=== PATIENT | male | born 1980 | race African-American/Black ===

== ENCOUNTER 2017-08-27 02:54 | Inpatient (IN) | payer OTHER ==
[~2017-08-27] VITALS: Ht 180.3 cm; Wt 76.8 kg
[2017-08-27] VITALS (10 sets, daily range): BP systolic 111–132; BP diastolic 63–86; PULSE 74–104; RESP 18; Ht 180.3 cm; Wt 76.8 kg
[2017-08-27] MEDS ORDERED: NACL 0.9% 3 ML SYG IV SCH (06:00)
[2017-08-27] MEDS ORDERED: ACETAMINOPHEN 325 MG TAB PO PRN (06:00)
[2017-08-27] MEDS ORDERED: ONDANSETRON 4 MG INJ IV PRN (06:00)
[2017-08-27] MEDS: PANTOPRAZOLE (EC) 40 MG TAB PO SCH (07:20)
[2017-08-27] MEDS: HEPARIN 5,000 UNIT/0.5 ML VIAL SC SCH ×3 (07:22→23:08)
[2017-08-27 07:54] LABS: BASOPHIL # 0.1 10^3/ul (0.0-0.1); BASOPHILS % 0.6 % (0.0-2.0); EOSINOPHILS # 0.2 10^3/ul (0.0-0.5); EOSINOPHILS % 2.1 % (0.0-7.0); HEMATOCRIT 42.5 % (42.0-52.0); HEMOGLOBIN 14.3 g/dl (14.0-18.0); LYMPHOCYTES # 1.8 10^3/ul (0.8-2.9); LYMPHOCYTES % 21.9 % (15.0-51.0); MEAN CORPUSCULAR HEMOGLOBIN 32.5 pg (29.0-33.0); MEAN CORPUSCULAR HGB CONC 33.6 g/dl (32.0-37.0); MEAN CORPUSCULAR VOLUME 96.6 fl (82.0-101.0); MEAN PLATELET VOLUME 11.7 fl (7.4-10.4); MONOCYTES % 12.4 % (0.0-11.0); NEUTROPHILS % 62.8 % (39.0-77.0); PLATELET COUNT 213 10^3/UL (140-415); RED CELL DISTRIBUTION WIDTH 13.2 % (11.5-14.5)
[2017-08-27 08:11] LABS: ALBUMIN 3.4 g/dl (3.3-4.9); ALBUMIN/GLOBULIN RATIO 1.03; BILIRUBIN,INDIRECT 0.7 mg/dl (0-1.1); BILIRUBIN,TOTAL 0.7 mg/dl (0.2-1.3); CALCIUM 8.9 mg/dl (8.4-10.2); CHOL/HDL RATIO 3.2 RATIO; CREATININE 0.8 mg/dl (0.61-1.24); MAGNESIUM 2.1 mg/dl (1.7-2.5); POTASSIUM 3.9 mmol/L (3.5-5.1); TOTAL PROTEIN 6.7 g/dl (6.1-8.1)
[2017-08-27 08:40] LABS: THYROID STIMULATING HORMONE 0.517 MIU/L (0.465-4.680)
--- NOTE | 2017-08-27 10:27 | HP ---
Date/Time of Note Date/Time of Note DATE: 08/27/17 TIME: 10:27 Assessment/Plan VTE Prophylaxis VTE Prophylaxis Intervention: heparin Assessment/Plan Chief Complaint/Hosp Course 1. Ground-level fall with resultant difficulty in walking in a patient with underlying cerebral palsy. Imaging studies have been negative. Will have physical therapy evaluate the patient. Neurology consult pending. Provide as needed analgesics. 2. Frequent falls and urinary incontinence in a patient with cerebral palsy. Management as per #1. 3. Cerebral palsy. Continue supportive care. Plan: The patient will be admitted to inpatient telemetry floor. The patient will be started on a regular diet. The patient will be started on DVT prophylaxis. The patient will remain a full code. Activities will be bedrest. The rest of the patient's management will be based on the clinical course, inputs from consultants, and the results of diagnostic studies. Based on the patient's clinical presentation, he most probably requires at least 2 midnights' stay for further management and evaluation of his clinical presentation. The case and management of this patient was fully discussed with Dr. Coreas Problems: HPI/ROS Admit Date/Time Admit Date/Time Aug 27, 2017 at 04:53 Hx of Present Illness Reason for admission: Transferred from outside facility for further evaluation of fall. Consultants 1. Aubree Gonsales MD, Neurology. This is a 37-year-old male with past medical history of cerebral palsy who apparently had a ground-level fall while he was in the shower. The event happened on 08/26/2017. The patient reported hitting bilateral knees as well as the right forehead during the fall. There was no reported loss of consciousness or seizures. The patient was complaining of right forehead pain as well as bilateral knee pain. The patient also had bilateral bruising in the barr area. The patient was also having urinary incontinence episodes in the past 1 year or so. The patient was taken to the emergency room at [facility]. Over there , the patient underwent evaluation with multiple imaging studies. The brain CT scan was negative for any acute findings. The patient underwent a left knee x- ray that was negative for any acute fractures or dislocation. The patient's right knee x-ray was also negative for any acute fracture or dislocation. The patient was transferred to [facility] for further management because of insurance reasons. ROS Constitutional: no complaints Eyes: pain ENT: no complaints Respiratory: no complaints Cardiovascular: no complaints Gastrointestinal: no complaints Genitourinary: no complaints Musculoskeletal: bone/joint pain (Bilateral knee) Skin: bruising Neurologic: no complaints Endocrine: no complaints Lymphatic: no complaints Psychological: no complaints Immunologic: no complaints PMH/Family/Social Past Medical History Medical History: other (Cerebral palsy) Past Surgical History Past Surgical Hx: no surgical history Social History Lives at home with his family. Alcohol Use: none Smoking Status: Never smoker Drug Use: none Exam/Review of Systems Vital Signs Vitals Vital Signs Date Time Temp Pulse Resp B/P Pulse Ox O2 Delivery O2 Flow Rate FiO2 08/27/17 08:00 90 08/27/17 07:33 98.1 18 132/72 97 Exam Exam General: Adequately build 37 year-old male lying in bed in no apparent distress. HEENT: Normocephalic, atraumatic. Eyes: Anicteric sclerae, conjunctivae clear. Bruising in the right periorbital area. ENT: Nasal septum midline, oral mucosa moist. Neck supple, no JVD noticed. Respiratory: Bilaterally clear breath sounds. No use of accessory muscles of respiration. No adventitious breath sounds. Cardiovascular: S1, S2 heard. No murmurs or gallops. Abdomen: Soft, nontender, and nondistended. Bowel sounds positive in all 4 quadrants. Genitourinary: Deferred. Extremities: No cyanosis, no clubbing, no edema. Peripheral pulses palpable. Area of erythema in the left barr with tenderness to touch. Area of erythema in the right barr with tenderness to touch. Neurologic: The patient is awake and alert. Dysarthria. Skin: Normal skin turgor. Labs Result Diagram: 08/27/1770308/27/17703 Medications Medications Current Medications Ondansetron HCl (Zofran Inj) 4 mg Q6H PRN IV NAUSEA AND/OR VOMITING; Start 08/27/17 at 06:00 Acetaminophen (Tylenol Tab) 650 mg Q6H PRN PO PAIN LEVEL 1-3 OR FEVER; Start 08/27/17 at 06:00 Pantoprazole (Protonix Tab) 40 mg DAILY@06 PO Last administered on 08/27/17t 07 :20; Admin Dose 40 MG; Start 08/27/17 at 06:00 Heparin Sodium (Porcine) (Heparin (5000 Units/0.5 ml)) 5,000 unit Q8 SC Last administered on 08/27/17t 07:22; Admin Dose 5,000 UNIT; Start 08/27/17 at 06:[address] Scan of the Brain without Contrast. No evidence of any acute intracranial process. Apparent hypoplasia of the right mastoid air cells. X-Ray of the Right Knee. No acute fracture or dislocation. Contour irregularity suggesting healed fractures of the proximal tibial and fibular diaphysis. X-Ray of the Left Knee No acute fracture or dislocation. Questionable old healed fracture of the proximal tibial metaphysis. HEIDI RASHEED NP Aug 27, 2017 10:27
--- NOTE | 2017-08-27 15:41 | CONS ---
Date/Time of Note Date/Time of Note DATE: 08/27/17 TIME: 15:37 Assessment/Plan Assessment/Plan Chief Complaint/Hosp Course 37 year old male with history of Cerebral Palsy admitted with increasing frequency of falls, ataxia and urinary incontinence over 1 year. Recommend: MRI Brain with and without contrast, MRI Cervical and Thoracic Spine w contrast to r/o possibility of cord pathology, compressive lesion PT/OT eval will follow w further recommendations after imaging completed d/w family at bedside Problems: Consultation Date/Type/Reason Admit Date/Time Aug 27, 2017 at 04:53 Date of Consultation: Aug 27, 2017 Type of Consultation: Neurology Reason for Consultation evaluation for LE weakness urinary incontinence Referring Provider: HEIDI RASHEED NP Hx of Present Illness 37 year old male with history of Cerebral Palsy not currently on any medications brought in by family for increased frequency of falls and urinary incontinence over the past year. Per sisters at bedside he had fallen in the shower prompting this admission hit his forehead and bilateral knees, they have noted trouble with his walking and increasing ataxia over the past year. He was seen at [facility] r/o for acute fractures and tx for further care. No known hx of seizures, he is not currently receiving any outpatient services or therapies. falls, pain in LE Eyes: pain ENT: no complaints Respiratory: no complaints Cardiovascular: no complaints Gastrointestinal: no complaints Genitourinary: no complaints Musculoskeletal: bone/joint pain (Bilateral knee) Skin: bruising Neurologic: no complaints Lymphatic: no complaints Psychological: no complaints Immunologic: no complaints Past Medical History Medical History: other (Cerebral palsy) Past Surgical History Past Surgical Hx: no surgical history Social History Alcohol Use: none Smoking Status: Never smoker Drug Use: none Exam/Review of Systems Vital Signs Vitals Vital Signs Date Time Temp Pulse Resp B/P Pulse Ox O2 Delivery O2 Flow Rate FiO2 08/27/17 14:48 97.8 87 18 111/68 97 Exam awake and alert oriented to name minimally verbal states his name CN: II-XII intact Motor: Bilateral UE 5/5 mild weakness RLE 5-/5 compared to Left 5/5 Reflexes 3+ throughout toes withdraw bilaterally Tone is wnl Coordination: poor cooperation with FTN Sensory is intact throughout Results Result Diagram: 08/27/17 0704 08/27/17 0704 Results 24 hrs Laboratory Tests Test 08/27/17 07:04 White Blood Count 8.0 Red Blood Count 4.40 L Hemoglobin 14.3 Hematocrit 42.5 Mean Corpuscular Volume 96.6 Mean Corpuscular Hemoglobin 32.5 Mean Corpuscular Hemoglobin Concent 33.6 Red Cell Distribution Width 13.2 Platelet Count 213 Mean Platelet Volume 11.7 H Neutrophils % 62.8 Lymphocytes % 21.9 Monocytes % 12.4 H Eosinophils % 2.1 Basophils % 0.6 Nucleated Red Blood Cells % 0.0 Neutrophils # 5.0 Lymphocytes # 1.8 Monocytes # 1.0 H Eosinophils # 0.2 Basophils # 0.1 Nucleated Red Blood Cells # 0.0 Sodium Level 142 Potassium Level 3.9 Chloride Level 111 H Carbon Dioxide Level 28 Anion Gap 7 L Blood Urea Nitrogen 17 Creatinine 0.80 Glucose Level 86 Hemoglobin A1c 5.1 Calcium Level 8.9 Magnesium Level 2.1 Total Bilirubin 0.7 Direct Bilirubin 0.00 Indirect Bilirubin 0.7 Aspartate Amino Transf (AST/SGOT) 46 Alanine Aminotransferase (ALT/SGPT) 56 Alkaline Phosphatase 58 Total Protein 6.7 Albumin 3.4 Globulin 3.30 H Albumin/Globulin Ratio 1.03 Triglycerides Level 38 Cholesterol Level 98 L LDL Cholesterol, Calculated 60 HDL Cholesterol 30 Cholesterol/HDL Ratio 3.2 Thyroid Stimulating Hormone (TSH) 0.517 Medications Medications Current Medications Ondansetron HCl (Zofran Inj) 4 mg Q6H PRN IV NAUSEA AND/OR VOMITING; Start 08/27/17 at 06:00 Acetaminophen (Tylenol Tab) 650 mg Q6H PRN PO PAIN LEVEL 1-3 OR FEVER; Start 08/27/17 at 06:00 Pantoprazole (Protonix Tab) 40 mg DAILY@06 PO Last administered on 08/27/17 07 :20; Admin Dose 40 MG; Start 08/27/17 at 06:00 Heparin Sodium (Porcine) (Heparin (5000 Units/0.5 ml)) 5,000 unit Q8 SC Last administered on 08/27/17 14:00; Admin Dose 5,000 UNIT; Start 08/27/17 at 06:00 CARRI SCHMIDT MD Aug 27, 2017 15:41
[2017-08-28] VITALS (9 sets, daily range): BP systolic 119–134; BP diastolic 63–79; PULSE 82–96; RESP 18–19
[2017-08-28 05:24] LABS: BASOPHILS % 0.8 % (0.0-2.0); EOSINOPHILS # 0.2 10^3/ul (0.0-0.5); EOSINOPHILS % 4.6 % (0.0-7.0); HEMATOCRIT 41.4 % (42.0-52.0); HEMOGLOBIN 13.4 g/dl (14.0-18.0); LYMPHOCYTES # 1.5 10^3/ul (0.8-2.9); LYMPHOCYTES % 28.9 % (15.0-51.0); MEAN CORPUSCULAR HEMOGLOBIN 31.1 pg (29.0-33.0); MEAN CORPUSCULAR HGB CONC 32.4 g/dl (32.0-37.0); MEAN CORPUSCULAR VOLUME 96.1 fl (82.0-101.0); MEAN PLATELET VOLUME 11.6 fl (7.4-10.4); MONOCYTE # 0.5 10^3/ul (0.3-0.9); MONOCYTES % 10.7 % (0.0-11.0); NEUTROPHIL # 2.8 10^3/ul (1.6-7.5); NEUTROPHILS % 54.8 % (39.0-77.0); PLATELET COUNT 202 10^3/UL (140-415); RED BLOOD COUNT 4.31 10^6/ul (4.70-6.10); RED CELL DISTRIBUTION WIDTH 13.4 % (11.5-14.5); WHITE BLOOD COUNT 5.1 10^3/ul (4.8-10.8)
[2017-08-28 05:55] LABS: PHOSPHORUS 3.1 mg/dl (2.5-4.9)
[2017-08-28 05:58] LABS: CALCIUM 8.6 mg/dl (8.4-10.2); CREATININE 0.81 mg/dl (0.61-1.24); POTASSIUM 3.8 mmol/L (3.5-5.1)
[2017-08-28] MEDS: PANTOPRAZOLE (EC) 40 MG TAB PO SCH (06:42)
[2017-08-28] MEDS: HEPARIN 5,000 UNIT/0.5 ML VIAL SC SCH ×3 (06:56→21:10)
[2017-08-28] MEDS: HYDROCODONE/APAP (5/325) TAB PO PRN ×3 (10:36→21:06)
--- NOTE | 2017-08-28 14:03 | PN ---
Date/Time of Note Date/Time of Note DATE: 08/28/17 TIME: 14:02 Assessment/Plan VTE Prophylaxis VTE Prophylaxis Intervention: heparin Lines/Catheters IV [facility] [place] Urinary Cath still in place: No Assessment/Plan Chief Complaint/Hosp Course 1. Ground-level fall with resultant difficulty in walking in a patient with underlying cerebral palsy. Imaging studies from the referring facility has been negative. Pending MRI. Pending PT and OT evaluation. Neurology following. 2. Frequent falls and urinary incontinence in a patient with cerebral palsy. Management as per #1. 3. Cerebral palsy. Continue supportive care. 4. Fluids, electrolytes, and nutrition. Regular diet. 5. DVT prophylaxis. SQ heparin. 6. Plan. Continue supportive care. Await further imaging studies as well as PT and OT evaluation. Transfer to Med/Surg. Case discussed with Dr. Coreas. Problems: Subjective 24 Hr Interval Summary Free Text/Dictation Denies any pain. Exam/Review of Systems Vital Signs Vitals Vital Signs Date Time Temp Pulse Resp B/P Pulse Ox O2 Delivery O2 Flow Rate FiO2 08/28/17 12:17 93 08/28/17 11:28 97.9 18 119/69 100 Intake and Output 08/27/17 08/27/17 08/28/17 15:00 23:00 07:00 Intake Total 440 ml Balance 440 ml Exam General: Adequately build 37 year-old male lying in bed in no apparent distress. HEENT: Normocephalic, atraumatic. Eyes: Anicteric sclerae, conjunctivae clear. Bruising in the right periorbital area. ENT: Nasal septum midline, oral mucosa moist. Neck supple, no JVD noticed. Respiratory: Bilaterally clear breath sounds. No use of accessory muscles of respiration. No adventitious breath sounds. Cardiovascular: S1, S2 heard. No murmurs or gallops. Abdomen: Soft, nontender, and nondistended. Bowel sounds positive in all 4 quadrants. Genitourinary: Deferred. Extremities: No cyanosis, no clubbing, no edema. Peripheral pulses palpable. Area of erythema in the left barr with tenderness to touch. Area of erythema in the right barr with tenderness to touch. Neurologic: The patient is awake and alert. Dysarthria. Skin: Normal skin turgor. Results Result Diagram: 08/28/17 0452 08/28/17 045 Results 24 hrs Laboratory Tests Test 08/28/17 04:52 08/28/17 04:53 White Blood Count 5.1 # Red Blood Count 4.31 L Hemoglobin 13.4 L Hematocrit 41.4 L Mean Corpuscular Volume 96.1 Mean Corpuscular Hemoglobin 31.1 Mean Corpuscular Hemoglobin Concent 32.4 Red Cell Distribution Width 13.4 Platelet Count 202 Mean Platelet Volume 11.6 H Neutrophils % 54.8 Lymphocytes % 28.9 Monocytes % 10.7 Eosinophils % 4.6 Basophils % 0.8 Nucleated Red Blood Cells % 0.0 Neutrophils # 2.8 Lymphocytes # 1.5 Monocytes # 0.5 Eosinophils # 0.2 Basophils # 0.0 Nucleated Red Blood Cells # 0.0 Sodium Level 143 Potassium Level 3.8 Chloride Level 109 Carbon Dioxide Level 28 Anion Gap 10 Blood Urea Nitrogen 12 Creatinine 0.81 Glucose Level 128 # Calcium Level 8.6 Phosphorus Level 3.1 Magnesium Level 2.0 Medications Medications Current Medications Ondansetron HCl (Zofran Inj) 4 mg Q6H PRN IV NAUSEA AND/OR VOMITING; Start 08/27/17 at 06:00 Acetaminophen (Tylenol Tab) 650 mg Q6H PRN PO PAIN LEVEL 1-3 OR FEVER Last administered on 08/27/17 21:04; Admin Dose 650 MG; Start 08/27/17 at 06:00 Pantoprazole (Protonix Tab) 40 mg DAILY@06 PO Last administered on 08/28/17 06 :42; Admin Dose 40 MG; Start 08/27/17 at 06:00 Heparin Sodium (Porcine) (Heparin (5000 Units/0.5 ml)) 5,000 unit Q8 SC Last administered on 08/28/17 06:56; Admin Dose 5,000 UNIT; Start 08/27/17 at 06:00 Acetaminophen/ Hydrocodone Bitart ([place] (5/325)) 1 tab Q4H PRN PO Pain Last administered on 08/28/17 10:36; Admin Dose 1 TAB; Start 08/28/17 at 10:30 HEIDI RASHEED NP Aug 28, 2017 14:03
--- NOTE | 2017-08-28 18:07 | CONS ---
Date/Time of Note Date/Time of Note DATE: 08/28/17 TIME: 18:06 Consult Date/Type/Reason Admit Date/Time Aug 27, 2017 at 04:53 Initial Consult Date 08/27/17 Type of Consultation: Neurology Reason for Consultation LE weakness, falls ataxia Ordering Provider: HEIDI RASHEED [employer] Subjective remains stable pending imaging Objective Vital Signs Date Time Temp Pulse Resp B/P Pulse Ox O2 Delivery O2 Flow Rate FiO2 08/28/17 15:43 97.6 93 18 134/63 93 Room Air Intake and Output 08/27/17 08/27/17 08/28/17 15:00 23:00 07:00 Intake Total 440 ml Balance 440 ml Exam awake and alert oriented to name minimally verbal states his name CN: II-XII intact Motor: Bilateral UE 5/5 mild weakness RLE 5-/5 compared to Left 5/5 Reflexes 3+ throughout toes withdraw bilaterally Tone is wnl Coordination: poor cooperation with FTN Sensory is intact throughout Results/Medications Result Diagram: 08/28/17 0452 08/28/17 0453 Results 24 hrs Laboratory Tests Test 08/28/17 04:52 08/28/17 04:53 White Blood Count 5.1 # Red Blood Count 4.31 L Hemoglobin 13.4 L Hematocrit 41.4 L Mean Corpuscular Volume 96.1 Mean Corpuscular Hemoglobin 31.1 Mean Corpuscular Hemoglobin Concent 32.4 Red Cell Distribution Width 13.4 Platelet Count 202 Mean Platelet Volume 11.6 H Neutrophils % 54.8 Lymphocytes % 28.9 Monocytes % 10.7 Eosinophils % 4.6 Basophils % 0.8 Nucleated Red Blood Cells % 0.0 Neutrophils # 2.8 Lymphocytes # 1.5 Monocytes # 0.5 Eosinophils # 0.2 Basophils # 0.0 Nucleated Red Blood Cells # 0.0 Sodium Level 143 Potassium Level 3.8 Chloride Level 109 Carbon Dioxide Level 28 Anion Gap 10 Blood Urea Nitrogen 12 Creatinine 0.81 Glucose Level 128 # Calcium Level 8.6 Phosphorus Level 3.1 Magnesium Level 2.0 Medications Current Medications Ondansetron HCl (Zofran Inj) 4 mg Q6H PRN IV NAUSEA AND/OR VOMITING; Start 08/27/17 at 06:00 Acetaminophen (Tylenol Tab) 650 mg Q6H PRN PO PAIN LEVEL 1-3 OR FEVER Last administered on 08/27/17t 21:04; Admin Dose 650 MG; Start 08/27/17 at 06:00 Pantoprazole (Protonix Tab) 40 mg DAILY@06 PO Last administered on 08/28/17 06 :42; Admin Dose 40 MG; Start 08/27/17 at 06:00 Heparin Sodium (Porcine) (Heparin (5000 Units/0.5 ml)) 5,000 unit Q8 SC Last administered on 08/28/17 14:16; Admin Dose 5,000 UNIT; Start 08/27/17 at 06:00 Acetaminophen/ Hydrocodone Bitart ([place] (5/325)) 1 tab Q4H PRN PO Pain Last administered on 08/28/17 15:47; Admin Dose 1 TAB; Start 08/28/17 at 10:30 Assessment/Plan Chief Complaint/Hosp Course 37 year old male with history of Cerebral Palsy admitted with increasing frequency of falls, ataxia and urinary incontinence over 1 year. Recommend: MRI Brain with and without contrast, MRI Cervical and Thoracic Spine w contrast to r/o possibility of cord pathology, compressive lesion PT recommended Acute Rehab imaging pending Problems: CARRI SCHMIDT MD Aug 28, 2017 18:07
--- NOTE | 2017-08-28 22:53 | RADRPT ---
PROCEDURE: MR Brain with and without contrast. CLINICAL INDICATION: Ataxia TECHNIQUE: Multiplanar multisequence MRI of the brain was performed before and after the administrat ion of 10 cc Magnevist. COMPARISON: There are no similar studies submitted for comparison. FINDINGS: There is no restricted diffusion to suggest acute ischemia/infarct. There is no evidence of acute in tracranial hemorrhage, midline shift, or mass effect. No extra-axial collection is seen. There is mi ld diffuse cerebral volume loss. Mildly prominent perivascular spaces in the basal ganglia regions a re noted. Signal intensity of the brain is within normal limits. There is a partially empty sella tu rcica, nonspecific. The parasellar and suprasellar regions are grossly unremarkable. GRE images show no evidence of hemosiderin staining. Postcontrast images show no evidence of abnormal parenchymal, ependymal, leptomeningeal, or pachymeningeal enhancement. On postcontrast images, there is apparent filling defect within the right sigmoid sinus, suggesting right sigmoid sinus thrombosis (series 5, image 21; series 4, image 19). A prominent arachnoid granulations considered less likely. There is e nhancement within the mastoid air cells anteriorly , suggesting right mastoiditis (series 5, image 19; series 4, image 18). The basal cisterns are preserved. The orbits are grossly unremarkable. Ther e is mild mucosal thickening in the bilateral ethmoid sinuses and right sphenoid sinus. No air-fluid levels are seen. There is a under pneumatization of the posterior right mastoid air cells. The visu alized left mastoid air cells are clear. IMPRESSION: 1. No evidence of acute ischemia/infarct, intracranial hemorrhage, midline shift, or hydrocephalous. 2. Enhancing right anterior mastoid air cells, concerning for mastoiditis. Apparent filling defect w ithin the right sigmoid sinus, suspicious for thrombus, possibly secondary to adjacent mastoiditis. A prominent arachnoid granulation is considered less likely. Recommend CT temporal bone and CTV for further evaluation. RPTAT: HR[facility] Physician Jared Date Time Electronically viewed and signed by Physician Jared on 08/28/2017 22:53 RC/
[2017-08-29 03:00] VITALS: BP 109/71; RESP 18
[2017-08-29] MEDS: HEPARIN 5,000 UNIT/0.5 ML VIAL SC SCH ×3 (05:43→21:25)
[2017-08-29] MEDS: PANTOPRAZOLE (EC) 40 MG TAB PO SCH (05:43)
[2017-08-29] MEDS: HYDROCODONE/APAP (5/325) TAB PO PRN ×3 (05:49→21:25)
[2017-08-29 07:41] VITALS: BP 128/77; RESP 20
--- NOTE | 2017-08-29 08:49 | RADRPT ---
PROCEDURE: MRA Brain. CLINICAL INDICATION: Ataxia TECHNIQUE: An MRA of the brain was performed on a GE short bore high-definition 1.5 luc scanner 3-D [id number] MR angiography technique. Source and MIP images were reviewed. COMPARISON: None FINDINGS: The internal carotid arteries are patent and normal in caliber. The middle cerebral and the anterio r cerebral arteries are also patent and normal in caliber with no significant luminal irregularity o r narrowing identified. The vertebral arteries, basilar artery, and superior cerebellar arteries ar e visualized and normal in appearance. There is codominant vertebral basilar arterial system. The posterior cerebral arteries are patent and normal in appearance bilaterally. No aneurysms are dete cted. IMPRESSION: 1. Tortuous intracranial arteries with no significant stenosis or occlusion. 2. No cerebral aneurysms or vascular malformations. RPTAT: BB .Rita Edward MD, Date Time Electronically viewed and signed by .Rita Edward MD, MD on 08/29/2017 08:48 .O/
--- NOTE | 2017-08-29 08:56 | RADRPT ---
PROCEDURE: MRA Neck without contrast. CLINICAL INDICATION: Ataxia. TECHNIQUE: An MRA of the major cervical arteries was performed on the 1.5 luc scanner utilizing axial 2D time of flight. No IV contrast was given as ordered. Source and MIPPED images were reviewe d. COMPARISON: No prior studies are available for comparison. FINDINGS: The common carotid arteries are patent and normal in caliber. There is significant tortuosity of the extracranial carotid arteries. The vertebral arteries are patent and normal in caliber bilaterally. There is no evidence of vascular stenosis or occlusion. IMPRESSION: 1. Limited assessment of the bilateral carotid bulbs/proximal ICA due to motion artifacts and tortu osity of the vessels. Otherwise, major neck vessels are patent with no significant stenosis. Conside r CTA neck for further evaluation. RPTAT: BB .Rita Edward MD, MD Date Time Electronically viewed and signed by .Rita Edward MD, on 08/29/2017 08:55 .O/
--- NOTE | 2017-08-29 09:11 | RADRPT ---
PROCEDURE: MR Cervical Spine with and without contrast. CLINICAL INDICATION: Lower extremity weakness and urinary incontinence. TECHNIQUE: An MRI of the cervical spine was performed on a [employer]apptain 1.5 luc scanner utilizing the foll owing sequences: Pre and postcontrast sagittal and axial T1 weighted, sagittal and axial T2 weighted , and sagittal T2 weighted with fat saturation. 10 cc of Magnevist were given intravenously without complication. COMPARISON: None FINDINGS: There is reversal of the cervical lordosis with focal kyphosis at C4-C5. The marrow signal throughou t the visualized cervical spine is homogeneous without focal abnormality. The craniocervical and cer vical medullary junctions are unremarkable. The cervical cord is normal in caliber and signal intens ity. There is abnormal bone marrow signal of the left facet at C3-C4 with surrounding mild soft tiss ue swelling/edema. There is increased left facet joint effusion. Small erosion involving the left in ferior articular facet of C3. There is small amount of phlegmon extending into the left neural yamini en at at C3-C4. There is minimal epidural contrast enhancement without definite of fluid collection at this level. The central canal remains adequately patent. Disc bulge, bilateral uncovertebral spur ring and facet arthropathy are seen at C4-C5. Sub centimeter cystic structures are seen in the infer ior aspect of the facet joints at C5-C6 which could represent synovial cyst. There is mild to moderate central canal and at least moderate bilateral neural foraminal stenosis. There is left fora alhaji disc protrusion at C6-C7 with associated mild to moderate left neural foraminal stenosis. Ther e is mild to moderate asymmetric central canal stenosis. IMPRESSION: The study is somewhat limited due to motion artifacts. 1. Abnormal bone marrow signal with surrounding soft tissue edema involving the left C3-C4 facet fahad nt. Increased joint effusion and small focus of probable erosion involving the left inferior articul ar facet of C3. The findings are concerning for septic/inflammatory arthritis. Small amount of enhan cing soft tissue likely a phlegmon around the left facet joint extending into the left neural forame n. No definite epidural fluid collection is identified. 2. Mild to moderate asymmetric central canal stenosis at C6-C7 with left-sided neural foraminal estefanía nosis. 3. Mild central canal stenosis and moderate bilateral neural foraminal stenosis at C4-C5. RPTAT: BB .Rita Edward MD, MD Date Time Electronically viewed and signed by .Rita Edward MD, MD on 08/29/2017 09:11 .O/
--- NOTE | 2017-08-29 09:51 | RADRPT ---
PROCEDURE: MRI thoracic spine with and without IV contrast CLINICAL INDICATION: Weakness. Urinary incontinence. TECHNIQUE: An MRI of the thoracic spine was performed on a AwesomePiece 1.5 luc scanner utilizing the foll owing sequences: Pre and postcontrast sagittal and axial T1 weighted, sagittal and axial T2 weighted , and sagittal STIR. 10 cc of Magnevist was administered intravenously. COMPARISON: None FINDINGS: There is a normal kyphosis of the thoracic spine. No vertebral body subluxation is seen. The verte bral bodies are normal in height and signal intensity. The thoracic cord is normal in signal intens ity in caliber at all levels. The paraspinal soft tissues are normal. T1-T2 through T4-T5: The disc height is maintained. There is mild left facet arthropathy. The centr al canal and bilateral neural foramina are adequately patent. T5-T6: The disc height is maintained. There is 3 mm broad-based central left paracentral disc protr usion abutting the ventral aspect of the cord with mild to moderate central canal stenosis.. There i s left facet arthropathy resulting in mild to moderate left neural foraminal stenosis. The right preston ral foramen is adequately patent. T6-T7: The disc height is maintained. There is left facet arthropathy. There is mild distortion of t he left posterolateral thecal sac without significant canal stenosis. Bilateral neural foramina are adequately patent. T7-T8: The disc height is maintained. Mild posterior disc bulge, mild to moderate facet arthropathy and ligamentum flavum thickening are seen at this level. There is mild central canal stenosis. T8-T9: There is moderate disc height loss with mild disc desiccation. Disc bulge, moderate facet ar thropathy and ligamentum flavum thickening are seen at this level. There is mild central canal and b ilateral neural foraminal stenosis. T9-T10: The disc height is maintained. Disc osteophyte complex, severe facet arthropathy and ligame ntum flavum thickening are seen at this level. There is moderately severe central canal stenosis wit h flattening of the cord. There is abnormal cord signal at this level. There is moderate to severe b ilateral neural foraminal stenosis right greater than left. T10-T11: The disc height is maintained. There is disc bulge, severe facet arthropathy and ligamentu m flavum thickening are seen at this level. There is severe central canal stenosis. There is abnorma l cord signal with mild volume loss. There is moderate to severe bilateral neural foraminal stenosis right greater than left. T11-T12: The disc height is maintained. There is disc bulge, moderate facet arthropathy and ligamen clayton flavum thickening are seen at this level. There is mild central canal stenosis. There is severe right and moderate left neural foraminal stenosis. IMPRESSION: 1. Severe acquired central canal stenosis at T9-T10 and T10-T11 with abnormal cord signal and mild volume loss suggesting myelomalacia. 2. Moderate to severe bilateral neural foraminal stenosis right greater than left at T8-T9 through T11-T12. 3. Mild discogenic disease at T5-T6. The remainder as above. RPTAT: BB .Rita Edward MD, Date Time Electronically viewed and signed by .Rita Edward MD, on 08/29/2017 09:51 .O/
--- NOTE | 2017-08-29 12:48 | CONS ---
Date/Time of Note Date/Time of Note DATE: 08/29/17 TIME: 12:44 Consult Date/Type/Reason Admit Date/Time Aug 27, 2017 at 04:53 Initial Consult Date 08/27/17 Type of Consultation: Neurology Reason for Consultation LE weakness Ordering Provider: HEIDI RASHEED [facility] Subjective remains stable no further decline imaging completed Objective Vital Signs Date Time Temp Pulse Resp B/P Pulse Ox O2 Delivery O2 Flow Rate FiO2 08/29/17 07:41 98.3 90 20 128/77 98 08/28/17 15:43 Room Air Intake and Output 08/28/17 08/28/17 08/29/17 15:00 23:00 07:00 Intake Total 200 ml 720 ml Output Total 150 ml 500 ml Balance 50 ml 220 ml Exam awake and alert oriented to name minimally verbal states his name CN: II-XII intact Motor: Bilateral UE 5/5 mild weakness RLE 5-/5 compared to Left 5/5 Reflexes 3+ throughout toes withdraw bilaterally Tone is wnl Coordination: poor cooperation with FTN Sensory is intact throughout Results/Medications Result Diagram: 08/28/17 0452 08/28/17 0453 Medications Current Medications Ondansetron HCl (Zofran Inj) 4 mg Q6H PRN IV NAUSEA AND/OR VOMITING; Start 08/27/17 at 06:00 Acetaminophen (Tylenol Tab) 650 mg Q6H PRN PO PAIN LEVEL 1-3 OR FEVER Last administered on 08/27/17 21:04; Admin Dose 650 MG; Start 08/27/17 at 06:00 Pantoprazole (Protonix Tab) 40 mg DAILY@06 PO Last administered on 08/29/17 05 :43; Admin Dose 40 MG; Start 08/27/17 at 06:00 Heparin Sodium (Porcine) (Heparin (5000 Units/0.5 ml)) 5,000 unit Q8 SC Last administered on 08/29/17 05:43; Admin Dose 5,000 UNIT; Start 08/27/17 at 06:00 Acetaminophen/ Hydrocodone Bitart ([place] (5/325)) 1 tab Q4H PRN PO Pain Last administered on 08/29/17 05:49; Admin Dose 1 TAB; Start 08/28/17 at 10:30 Assessment/Plan Chief Complaint/Hosp Course 37 year old male with history of Cerebral Palsy admitted with increasing frequency of falls, ataxia and urinary incontinence over 1 year. MRI Brain: 1. No evidence of acute ischemia/infarct, intracranial hemorrhage, midline shift , or hydrocephalous. 2. Enhancing right anterior mastoid air cells, concerning for mastoiditis. Apparent filling defect within the right sigmoid sinus, suspicious for thrombus , possibly secondary to adjacent mastoiditis. A prominent arachnoid granulation is considered less likely. Recommend CT temporal bone and CTV for further evaluation. MRA 1. Tortuous intracranial arteries with no significant stenosis or occlusion. 2. No cerebral aneurysms or vascular malformations. MRI C Spine 1. Abnormal bone marrow signal with surrounding soft tissue edema involving the left C3-C4 facet joint. Increased joint effusion and small focus of probable erosion involving the left inferior articular facet of C3. The findings are concerning for septic/inflammatory arthritis. Small amount of enhancing soft tissue likely a phlegmon around the left facet joint extending into the left neural foramen. No definite epidural fluid collection is identified. 2. Mild to moderate asymmetric central canal stenosis at C6-C7 with left-sided neural foraminal stenosis. 3. Mild central canal stenosis and moderate bilateral neural foraminal stenosis at C4-C5. MRI Thoracic Spine: 1. Severe acquired central canal stenosis at T9-T10 and T10-T11 with abnormal cord signal and mild volume loss suggesting myelomalacia. 2. Moderate to severe bilateral neural foraminal stenosis right greater than left at T8-T9 through T11-T12. 3. Mild discogenic disease at T5-T6. The remainder as above. Imaging reviewed, MRI suggested possible Sinus thrombosis will order CTA w venous studies to further evaluation, unlikely he has a sinus thrombosis. Suspect etiology for LE weakness is secondary to Thoracic MRI findings with show severe stenosis at T9-10 abnormal cord signal volume loss. Unfortunately appear to be chronic findings. Will check B12, MMA, Homocysteine. Continue PT Problems: CARRI SCHMIDT MD Aug 29, 2017 12:48
--- NOTE | 2017-08-29 12:59 | PN ---
Date/Time of Note Date/Time of Note DATE: 08/29/17 TIME: 12:51 Assessment/Plan VTE Prophylaxis VTE Prophylaxis Intervention: heparin Lines/Catheters IV Catheter Type (from [facility]): [place] [facility] Urinary Cath still in place: No Assessment/Plan Chief Complaint/Hosp Course Assessment and plan 1. Ground-level fall with underlying cerebral palsy. Patient reportedly had imaging done from outside facility that was negative for any acute findings. MRI of the brain did show possible mastoiditis as well as right sigmoid sinus suspicious for thrombus. Further imaging pending. Neurologist following. Will follow up diagnostic results 2. Frequent falls. . Noted with spinal stenosis on thoracic MRI. Neurosurgeon to follow 3. Reported history of cerebral palsy. Continue supportive care. Disposition plan: Plan for PT/OT evaluation. Further imaging for possible mastoiditis and sinus thrombus pending. Continue house monitoring. Discussed plan of care with Dr. Rice Problems: Subjective 24 Hr Interval Summary Free Text/Dictation No signs or symptoms of distress at this time. Does report some right knee discomfort. Exam/Review of Systems Vital Signs Vitals Vital Signs Date Time Temp Pulse Resp B/P Pulse Ox O2 Delivery O2 Flow Rate FiO2 08/29/17 07:41 98.3 90 20 128/77 98 08/28/17 15:43 Room Air Intake and Output 08/28/17 08/28/17 08/29/17 15:00 23:00 07:00 Intake Total 200 ml 720 ml Output Total 150 ml 500 ml Balance 50 ml 220 ml Exam General: Reports having some right knee pain Eyes: [pupils equal round, Anicteric sclera] Neck: Supple nontender, no JVD Cardiac: [S1, S2 auscultated, regular rhythm and rate] Pulmonary: [No coarse rhonchi or breathing auscultated] GI: [Abdomen soft nontender nondistended, bowel sounds active] Extremities: Swelling noted on right knee as well and barr Skin: [Clean dry and intact] Neurologic: alert to self and place Results Result Diagram: 08/28/17 0452 08/28/17 0453 Medications Medications Current Medications Ondansetron HCl (Zofran Inj) 4 mg Q6H PRN IV NAUSEA AND/OR VOMITING; Start 08/27/17 at 06:00 Acetaminophen (Tylenol Tab) 650 mg Q6H PRN PO PAIN LEVEL 1-3 OR FEVER Last administered on 08/27/17 21:04; Admin Dose 650 MG; Start 08/27/17 at 06:00 Pantoprazole (Protonix Tab) 40 mg DAILY@06 PO Last administered on 08/29/17 05 :43; Admin Dose 40 MG; Start 08/27/17 at 06:00 Heparin Sodium (Porcine) (Heparin (5000 Units/0.5 ml)) 5,000 unit Q8 SC Last administered on 08/29/17 05:43; Admin Dose 5,000 UNIT; Start 08/27/17 at 06:00 Acetaminophen/ Hydrocodone Bitart ([place] (5/325)) 1 tab Q4H PRN PO Pain Last administered on 08/29/17 05:49; Admin Dose 1 TAB; Start 08/28/17 at 10:30 BRISA NEAL Aug 29, 2017 12:59
[2017-08-29] MEDS ORDERED: IOHEXOL 350MG/ML 50 ML BTL ONE (14:56)
[2017-08-29] MEDS ORDERED: IOHEXOL 100 ML ONE (14:56)
[2017-08-29] MEDS ORDERED: SOD CHLORIDE 0.9% 100 ML ONE (14:56)
[2017-08-29 15:36] VITALS: BP 124/67; RESP 20
--- NOTE | 2017-08-29 18:03 | CONS ---
DATE OF ADMISSION: 08/27/2017 DATE OF CONSULTATION: 08/29/2017 TYPE OF CONSULTATION: Infectious Disease. REASON FOR CONSULTATION: Antibiotic management. HISTORY OF PRESENT ILLNESS: Jossue Kirk is a 37-year-old male with history of cerebral palsy who apparently had a ground level fall while he was in the shower. This occurred on 08/26/2017. He hi t his knees bilaterally as well as the right forehead during the fall. There was no reported loss o f consciousness or seizures. The patient was complaining of right forehead pain, as well as bilater al knee pain. He had bilateral bruising of the barr area with urinary incontinence. He was taken to the emergency room at [facility], he underwent evaluation with multiple imaging studies. CT scan of the brain was negative for any acute findings. He underwent a left knee x-ray, was nega tive. There were no fractures. He was transferred to [facility]. So he had a ground level fall, he has frequent falls because of his cerebral palsy. HOSPITAL COURSE: A thoracic spine MRI was done which showed severe acquired central canal stenosis at T9 through T10 and T10-11 with abnormal cord signal and mild volume loss suggesting myelomalacia, moderate to severe bilateral neural foraminal stenosis, right greater than left at T8 and T9 throug h T11-T12, mild discogenic disease at T5-T6, remainder as above. He had a neck MRI with no signific ant findings. He had a cervical MRI, abnormal bone marrow signal, surrounding soft tissue edema inv olving the left C3-C4 facet joint, increased joint effusion, small focus probably erosion. Findings were concerning for septic or inflammatory arthritis, small amount of enhancing soft tissue likely a phlegmon around the left facet joint extending into the left neural foramina. No definite epidural fluid collection is identified. Mild to moderate asymmetric central canal stenosis at C6-C7, mild c entral canal stenosis and moderate bilateral neural foraminal stenosis at C4-C5. There are abnormal signals around the left C3-C4 facet joint. A brain MRI was done with MRA, tortuous intracranial art eries, no significant stenosis or occlusion. Brain MRI, no evidence of acute ischemia or infarct, n o intracranial hemorrhage or hydrocephalus. The patient is currently not on antibiotic therapy. Hi s white count is 5.1, H and H of 13.4 and 41.4. I do not see any evidence of cultures done so we ar e going to do 2 sets of blood cultures and he probably should be evaluated by neurosurgery. The pat krish was seen by Neurology, by Dr. Aubree Gonsales. MRI suggests possible sinus thrombosis. This etiology for lower extremity weakness secondary to thoracic MRI findings which show severe T9-T10 ab normal cord signal volume loss. She ordered B12, homocysteine and MMA. The patient was seen by Lidia Rowe. I am concerned for the finding as listed and we will see that the neurosurgeon or neuro logist takes a look at the patient. Dictated By: CAROLYN BADILLO MD, JD/YOU Conf#: [id number] DID#: [id number]
[2017-08-29 20:06] VITALS: BP 137/60; RESP 18
[2017-08-30 02:14] VITALS: BP 121/87; RESP 18
[2017-08-30] MEDS: HYDROCODONE/APAP (5/325) TAB PO PRN ×3 (03:17→16:36)
[2017-08-30] MEDS: PANTOPRAZOLE (EC) 40 MG TAB PO SCH (05:24)
[2017-08-30] MEDS: HEPARIN 5,000 UNIT/0.5 ML VIAL SC SCH ×3 (05:33→21:21)
[2017-08-30 05:42] LABS: WHITE BLOOD COUNT 6.1 10^3/ul (4.8-10.8)
[2017-08-30 05:43] LABS: BASOPHIL # 0.1 10^3/ul (0.0-0.1); EOSINOPHILS # 0.4 10^3/ul (0.0-0.5); EOSINOPHILS % 7.2 % (0.0-7.0); HEMATOCRIT 45.5 % (42.0-52.0); HEMOGLOBIN 15.1 g/dl (14.0-18.0); LYMPHOCYTES # 1.7 10^3/ul (0.8-2.9); LYMPHOCYTES % 28.4 % (15.0-51.0); MEAN CORPUSCULAR HEMOGLOBIN 31.7 pg (29.0-33.0); MEAN CORPUSCULAR HGB CONC 33.2 g/dl (32.0-37.0); MEAN CORPUSCULAR VOLUME 95.4 fl (82.0-101.0); MEAN PLATELET VOLUME 11.3 fl (7.4-10.4); MONOCYTE # 0.7 10^3/ul (0.3-0.9); MONOCYTES % 10.6 % (0.0-11.0); NEUTROPHIL # 3.2 10^3/ul (1.6-7.5); NEUTROPHILS % 52.5 % (39.0-77.0); PLATELET COUNT 241 10^3/UL (140-415); RED BLOOD COUNT 4.77 10^6/ul (4.70-6.10)
[2017-08-30 05:59] LABS: CALCIUM 9.3 mg/dl (8.4-10.2); CREATININE 0.83 mg/dl (0.61-1.24); POTASSIUM 4.2 mmol/L (3.5-5.1)
[2017-08-30 08:00] VITALS: BP 130/69; PULSE 78; RESP 18
--- NOTE | 2017-08-30 09:35 | RADRPT ---
PROCEDURE: CT venography of the brain. CLINICAL INDICATION: Ataxia. Right mastoiditis. Evaluate for dural sinus thrombosis. TECHNIQUE: The study was performed utilizing a multi-slice multidetector CT scanner. Direct spiral 0.65 mm axial sections were obtained through the intracranial vasculature with the use of 115 cc of Omnipaque 350 nonionic intravenous contrast material. Coronal and sagittal MPRs as well as maximal intensity projection reformations were obtained. 3-D MIP images were also reviewed. The images were reviewed on a PACS workstation. The CTDIvol is 102.47, and 28.86 mGy and the DLP is 572.79 mGycm. One or more of the following dose reduction techniques were used: Automated exposure control Adjustment of the mA and/or kV according to patient size. Use of iterative reconstruction technique. COMPARISON: No prior studies are available for comparison. FINDINGS: Dural venous sinuses are patent. Tortuous intracranial arteries with no significant stenosis or occ lusion. No cerebral aneurysms or vascular malformations. IMPRESSION: 1. No dural sinus thrombosis. 2. Tortuous intracranial arteries with no significant stenosis or occlusion. 3. No cerebral aneurysms or vascular malformations. RPTAT: BB .Rita Edward MD, MD Date Time Electronically viewed and signed by .Rita Edward MD, on 08/30/2017 09:34 .O/
--- NOTE | 2017-08-30 09:48 | RADRPT ---
PROCEDURE: CT temporal bones without contrast CLINICAL INDICATION: Ataxia. Suspected mastoiditis on the recent MRI. TECHNIQUE: A CT of the temporal bones without contrast was performed on a multidetector CT scanner utilizing 0.6 mm axial sections. Coronal and sagittal images were reformatted. The exam CTDIvol = 39.51 mGy and DLP = 353.04 mGy-cm. One or more of the following dose reduction techniques were used: Automated exposure control. Adjustment of the mA and/or kV according to patient size. Use of iterative reconstruction technique. COMPARISON: MRI brain 08/27/2017. FINDINGS: Right temporal bone: There is circumferential soft tissue thickening along the right external audito ry canal. There is thickening of the right tympanic membrane. There is erosion of the scutum. Soft t issue thickening is seen around the medial ossicle with erosion of the short course of the incus and lateral portion of the head of the malleolus. There is opacification of the right mastoid air cells and aditus ad antrum. Bony labyrinth structures are within normal limits and the otic capsule is in tact. The internal auditory canal is normal in caliber. Left temporal bone: The external auditory canal is patent. The tympanic membrane is thin. Mastoid air cells and middle ear cavity are clear. Ossicles and scutum are intact. Bony labyrinth structu res are within normal limits and the otic capsule is intact. The internal auditory canal is normal in caliber. IMPRESSION: 1. Soft tissue thickening along the right external auditory canal. Marked thickening of the right ty mpanic membrane. Soft tissue density in the right middle ear cavity surrounding the middle ear ossic les with erosion of the scutum and lateral aspect of the head of the malleolus and short delisa of the incus concerning for cholesteatoma. 2. Opacification of the right mastoid air cells and aditus ad antrum without evidence of coalescent mastoiditis. RPTAT: BB .Rita Edward MD, Date Time Electronically viewed and signed by .Rita Edward MD, MD on 08/30/2017 09:48 .O/
[2017-08-30] MEDS ORDERED: VANCOMYCIN IV PER PHARMACY XX SCH (11:00)
--- NOTE | 2017-08-30 11:04 | CONS ---
Date/Time of Note Date/Time of Note DATE: 08/30/17 TIME: 11:02 Consult Date/Type/Reason Admit Date/Time Aug 27, 2017 at 04:53 Initial Consult Date 08/27/17 Type of Consultation: Neurology Reason for Consultation evaluation for LE weakness falls Ordering Provider: HEIDI RASHEED [employer] Subjective remains stable afebrile, no active concern for infectious process Objective Vital Signs Date Time Temp Pulse Resp B/P Pulse Ox O2 Delivery O2 Flow Rate FiO2 08/30/17 08:00 97.6 78 18 130/69 98 Room Air Intake and Output 08/29/17 08/29/17 08/30/17 15:00 23:00 07:00 Intake Total 1600 ml 500 ml Output Total 1500 ml 650 ml Balance 100 ml -150 ml Exam awake and alert oriented to name minimally verbal states his name CN: II-XII intact Motor: Bilateral UE 5/5 mild weakness RLE 5-/5 compared to Left 5/5 Reflexes 3+ throughout toes withdraw bilaterally Tone is wnl Coordination: poor cooperation with FTN Sensory is intact throughout Results/Medications Result Diagram: 08/30/17 0505 08/30/17 0505 Results 24 hrs Laboratory Tests Test 08/29/17 14:00 08/30/17 05:05 Vitamin B12 Level 345 White Blood Count 6.1 Red Blood Count 4.77 Hemoglobin 15.1 Hematocrit 45.5 Mean Corpuscular Volume 95.4 Mean Corpuscular Hemoglobin 31.7 Mean Corpuscular Hemoglobin Concent 33.2 Red Cell Distribution Width 13.0 Platelet Count 241 Mean Platelet Volume 11.3 H Neutrophils % 52.5 Lymphocytes % 28.4 Monocytes % 10.6 Eosinophils % 7.2 H Basophils % 1.0 Nucleated Red Blood Cells % 0.0 Neutrophils # 3.2 Lymphocytes # 1.7 Monocytes # 0.7 Eosinophils # 0.4 Basophils # 0.1 Nucleated Red Blood Cells # 0.0 Sodium Level 139 Potassium Level 4.2 Chloride Level 106 Carbon Dioxide Level 29 Anion Gap 8 Blood Urea Nitrogen 13 Creatinine 0.83 Glucose Level 91 Calcium Level 9.3 Medications Current Medications Ondansetron HCl (Zofran Inj) 4 mg Q6H PRN IV NAUSEA AND/OR VOMITING; Start 08/27/17 at 06:00 Acetaminophen (Tylenol Tab) 650 mg Q6H PRN PO PAIN LEVEL 1-3 OR FEVER Last administered on 08/27/17 21:04; Admin Dose 650 MG; Start 08/27/17 at 06:00 Pantoprazole (Protonix Tab) 40 mg DAILY@06 PO Last administered on 08/30/17 05:24; Admin Dose 40 MG; Start 08/27/17 at 06:00 Heparin Sodium (Porcine) (Heparin (5000 Units/0.5 ml)) 5,000 unit Q8 SC Last administered on 08/30/17 05:33; Admin Dose 5,000 UNIT; Start 08/27/17 at 06:00 Acetaminophen/ Hydrocodone Bitart ([place] (5/325)) 1 tab Q4H PRN PO Pain Last administered on 08/30/17 08:30; Admin Dose 1 TAB; Start 08/28/17 at 10:30 Dexamethasone 4 mg 4 mg Q6 IV ; Start 08/30/17 at 12:00 Cefepime HCl (Maxipime 1gm/50 ml (Pmx)) 50 ml @ 100 mls/hr Q12 IVPB ; Start at 11:00 Assessment/Plan Chief Complaint/Hosp Course 37 year old male with history of Cerebral Palsy admitted with increasing frequency of falls, ataxia and urinary incontinence over 1 year. MRI Brain: 1. No evidence of acute ischemia/infarct, intracranial hemorrhage, midline shift , or hydrocephalous. 2. Enhancing right anterior mastoid air cells, concerning for mastoiditis. Apparent filling defect within the right sigmoid sinus, suspicious for thrombus , possibly secondary to adjacent mastoiditis. A prominent arachnoid granulation is considered less likely. Recommend CT temporal bone and CTV for further evaluation. MRA 1. Tortuous intracranial arteries with no significant stenosis or occlusion. 2. No cerebral aneurysms or vascular malformations. MRI C Spine 1. Abnormal bone marrow signal with surrounding soft tissue edema involving the left C3-C4 facet joint. Increased joint effusion and small focus of probable erosion involving the left inferior articular facet of C3. The findings are concerning for septic/inflammatory arthritis. Small amount of enhancing soft tissue likely a phlegmon around the left facet joint extending into the left neural foramen. No definite epidural fluid collection is identified. 2. Mild to moderate asymmetric central canal stenosis at C6-C7 with left-sided neural foraminal stenosis. 3. Mild central canal stenosis and moderate bilateral neural foraminal stenosis at C4-C5. MRI Thoracic Spine: 1. Severe acquired central canal stenosis at T9-T10 and T10-T11 with abnormal cord signal and mild volume loss suggesting myelomalacia. 2. Moderate to severe bilateral neural foraminal stenosis right greater than left at T8-T9 through T11-T12. 3. Mild discogenic disease at T5-T6. The remainder as above. CTA done no concern for sinus thrombosis. Suspect etiology for LE weakness is secondary to Thoracic MRI findings with show severe stenosis at T9-10 abnormal cord signal volume loss. Unfortunately appear to be chronic findings. B12 level significantly low: 345 will initiate supplementation, MMA and Homocysteine pending. ID consulted, no concern for active infection. Neurosurgery also to evaluate. Continue PT Problems: CARRI SCHMIDT MD Aug 30, 2017 11:04
--- NOTE | 2017-08-30 11:33 | RADRPT ---
PROCEDURE: CT thoracic Spine without contrast. CLINICAL INDICATION: spinal stenosis, pain TECHNIQUE: Multiple axial images through the thoracic spine with coronal and sagittal reformats we re obtained without contrast. The calculated radiation dose measures 637 mGy centimeters. The CTDI m easures 16 mGy One or more of the following dose reduction techniques were used: Automated exposure control. Adjustment of the mA and/or kV according to patient size. Use of iterative reconstruction technique. COMPARISON: MRI 08/27/2017 FINDINGS: There is a thoracic dextroscoliosis. There is straightening of the normal thoracic kyphosis. There i s congenital appearing narrowing of the central spinal canal. Vertebral body heights are maintained. There is mild to moderate appearing disc space narrowing at T3-T4 through T5-T6, and T8-T9 and T9-T 10. There are very minimal appearing disc bulges from T2-T3 through T4-T5, and from T6-T7 through T9-T10 . There is a mild to moderate appearing broad-based disc protrusion at T5-T6, up to 4 mm. There is m ild appearing diffuse disc bulges from T9-T10 through T12-L1. There facet hypertrophic changes, whic h appear moderate from T3-T4 through T8-T9, and moderate to severe at T9-T10 through T12-L1. Finding s produce moderate to severe appearing central canal stenosis at T5-T6 with AP canal diameter measur ing 7 mm, and moderate central canal stenosis at T8-T9. There is moderate to severe appearing centra l canal stenosis at T9-T10 and T10-T11, with canal diameter measuring approximately 8 x 9 mm of thes e levels. There is multilevel bony foraminal stenosis, severe on both sides at T9-T10, and on the ri ght at T11-T12. There is moderate to severe foraminal stenosis on the right at T8-T9 , on the left a t T11-T12, and on both sides at T10-T11. IMPRESSION: 1. Thoracic dextroscoliosis. Straightening of the thoracic kyphosis. Congenital appearing baseline mild to moderate central canal stenosis through the thoracic spine. 2. Moderate to severe appearing central canal stenosis at T9-T10 and T10-T11, relating to moderate to severe bilateral facet hypertrophy, and mild disc bulges. Moderate appearing central canal stenos is at T8-T9. 3. Moderate to severe appearing central canal stenosis at T5-T6, relating to a 4 mm disc protrusion , and moderate facet hypertrophy. 4. Multilevel bony foraminal stenosis, appearing severe on both sides at T9-T10, and moderate to se denis as noted at other levels from T8-T9 through T11-T12. RPTAT: DD .En Tesfaye MD, MD Date Time Electronically viewed and signed by .En Tesfaye MD, on 08/30/2017 11:33 .T/
--- NOTE | 2017-08-30 11:34 | PN ---
Date/Time of Note Date/Time of Note DATE: 08/30/17 TIME: 11:29 Assessment/Plan VTE Prophylaxis VTE Prophylaxis Intervention: heparin Lines/Catheters IV Catheter Type (from [facility]): [place] Urinary Cath still in place: No Assessment/Plan Chief Complaint/Hosp Course Assessment and plan 1. Ground-level fall with underlying suspect cerebral palsy. Patient reportedly had imaging done from outside facility that was negative for any acute findings. MRI of the brain did show possible mastoiditis as well as right sigmoid sinus suspicious for thrombus. . However recent imaging done on August 29, 2017 showed: CT scan of temporal bones with contrast showed no evidence of mastoiditis and CTA of the brain showed no dural sinus thrombosis. Continue with neurologist or conditions. 2. Frequent falls . Spinal MRI with thoracic spinal stenosis. Neurosurgeon is following. Continue recommendations. 3. Right knee pain. Follow-up on imaging. Disposition plan: Plan for PT/OT evaluation. To be started on Decadron per neurosurgeon. Continue the recommendations. We will see if need for possible surgical intervention Discussed plan of care with Dr. Rice Problems: Subjective 24 Hr Interval Summary Free Text/Dictation Still reports having some pain on the right knee. Exam/Review of Systems Vital Signs Vitals Vital Signs Date Time Temp Pulse Resp B/P Pulse Ox O2 Delivery O2 Flow Rate FiO2 08/30/17 08:00 97.6 78 18 130/69 98 Room Air Intake and Output 08/29/17 08/29/17 08/30/17 15:00 23:00 07:00 Intake Total 1600 ml 500 ml Output Total 1500 ml 650 ml Balance 100 ml -150 ml Exam General: Reports having some right knee pain, unchanged. No anxiety noted Eyes: pupils equal round, Anicteric sclera Neck: Supple nontender, no JVD Cardiac: S1, S2 auscultated, regular rhythm and rate Pulmonary: No coarse rhonchi or breathing auscultated GI: Abdomen soft nontender nondistended, bowel sounds active Extremities: Swelling noted on right knee as well and barr Skin: Clean dry and intact Neurologic: alert to self and place Results Result Diagram: 08/30/17 0505 08/30/17 0505 Results 24 hrs Laboratory Tests Test 08/29/17 14:00 08/30/17 05:05 Vitamin B12 Level 345 White Blood Count 6.1 Red Blood Count 4.77 Hemoglobin 15.1 Hematocrit 45.5 Mean Corpuscular Volume 95.4 Mean Corpuscular Hemoglobin 31.7 Mean Corpuscular Hemoglobin Concent 33.2 Red Cell Distribution Width 13.0 Platelet Count 241 Mean Platelet Volume 11.3 H Neutrophils % 52.5 Lymphocytes % 28.4 Monocytes % 10.6 Eosinophils % 7.2 H Basophils % 1.0 Nucleated Red Blood Cells % 0.0 Neutrophils # 3.2 Lymphocytes # 1.7 Monocytes # 0.7 Eosinophils # 0.4 Basophils # 0.1 Nucleated Red Blood Cells # 0.0 Sodium Level 139 Potassium Level 4.2 Chloride Level 106 Carbon Dioxide Level 29 Anion Gap 8 Blood Urea Nitrogen 13 Creatinine 0.83 Glucose Level 91 Calcium Level 9.3 Medications Medications Current Medications Ondansetron HCl (Zofran Inj) 4 mg Q6H PRN IV NAUSEA AND/OR VOMITING; Start 08/27/17 at 06:00 Acetaminophen (Tylenol Tab) 650 mg Q6H PRN PO PAIN LEVEL 1-3 OR FEVER Last administered on 08/27/17 21:04; Admin Dose 650 MG; Start 08/27/17 at 06:00 Pantoprazole (Protonix Tab) 40 mg DAILY@06 PO Last administered on 08/30/17 05:24; Admin Dose 40 MG; Start 08/27/17 at 06:00 Heparin Sodium (Porcine) (Heparin (5000 Units/0.5 ml)) 5,000 unit Q8 SC Last administered on 08/30/17 05:33; Admin Dose 5,000 UNIT; Start 08/27/17 at 06:00 Acetaminophen/ Hydrocodone Bitart ([place] (5/325)) 1 tab Q4H PRN PO Pain Last administered on 08/30/17 08:30; Admin Dose 1 TAB; Start 08/28/17 at 10:30 Dexamethasone 4 mg 4 mg Q6 IV ; Start 08/30/17 at 12:00 Cefepime HCl 50 ml @ 100 mls/hr Q12 IVPB ; Start 08/30/17 at 11:00 Vancomycin HCl 1.5 gm/Sodium Chloride 250 ml @ 83.333 mls/ hr ONCE@13 IVPB ; Start 08/30/17 at 13:00; Stop 08/30/17 at 18:00 Vancomycin HCl (Vancocin) 250 ml @ 125 mls/hr Q8H IVPB ; Start 08/30/17 at 21: 00 Cyanocobalamin (Vitamin B12 Inj) 1,000 mcg DAILY IM ; Start 08/30/17 at 12:00 BRISA NEAL Aug 30, 2017 11:34
[2017-08-30] MEDS: DEXAMETHASONE 4 MG/ML 1 ML INJ IV SCH ×2 (11:43→17:58)
[2017-08-30] MEDS: CEFEPIME 1GM/50 ML (PMX) 50 ML IVPB SCH ×2 (11:43→21:18)
[2017-08-30] MEDS ORDERED: VANCOMYCIN 1.5 GM in SOD CHLORIDE 0.9% 250 ML IVPB SCH (13:00)
[2017-08-30 14:00] VITALS: BP 117/81; RESP 18
[2017-08-30] MEDS: CYANOCOBALAMIN 1000 MCG INJ IM SCH (14:26)
--- NOTE | 2017-08-30 16:11 | RADRPT ---
PROCEDURE: Right knee radiographs. CLINICAL INDICATION: Trauma due to a fall. Right knee pain. TECHNIQUE: Two views. Frontal and lateral. COMPARISON: No prior studies are available for comparison. FINDINGS: There is no fracture or dislocation. The soft tissues are normal. There are degenerative changes with osteophytes arising from all 3 joint compartment margins. There is no lytic or blastic lesion. There is no joint effusion. IMPRESSION: 1. Unremarkable images of the right knee. RPTAT: QQ .Raman Bonilla MD, Date Time Electronically viewed and signed by .Raman Bonilla MD, on 08/30/2017 16:11 .R/
--- NOTE | 2017-08-30 16:13 | RADRPT ---
PROCEDURE: XR Left Hip. CLINICAL INDICATION: Trauma due to a fall. Left hip pain. TECHNIQUE: Two views. Frontal and lateral. COMPARISON: No prior studies are available for comparison. FINDINGS: There is no fracture or dislocation. The soft tissues are normal. Articular surfaces are intact. There is no lytic or blastic lesion. There is no radiopaque foreign body. IMPRESSION: 1. Normal images of the left hip. RPTAT: QQ .Raman Bonilla MD, MD Date Time Electronically viewed and signed by .Raman Bonilla MD, on 08/30/2017 16:13 .R/
--- NOTE | 2017-08-30 17:55 | PN ---
DATE: 08/30/2017 INFECTIOUS DISEASE PROGRESS NOTE SUBJECTIVE: No acute events overnight. The patient is awake, looks comfortable, no fevers. WBC today 6.1, no shift, no bands. BUN 13, creatinine 0.83. DIAGNOSTICS: Patient had a thoracic spine CT that revealed multilevel foraminal stenosis. Head and orbits CT revealed soft tissue thickening around the right external auditory canal with marked thic kening of the right tympanic membrane questionable cholesteatoma opacification of the right mastoid air cells, isidro and antrum without evidence of coalescent mastoiditis. Cervical spine MRI reveal ed abnormal bone marrow signal with surrounding soft tissue edema involving the left C3-C4 facet fahad nts with increased joint effusion and small focus of probable erosion involving the left inferior a rticular facet of C3. Findings are concerning for septic/ inflammatory arthritis. No definite epid ural fluid collection, mild to moderate asymmetric central canal stenosis at C7-C6 with left-sided n eural foraminal stenosis and mild central canal stenosis and moderate bilateral neural foraminal estefanía nosis at C4-C5. The patient was started on vancomycin and Cefepime. PHYSICAL EXAMINATION: GENERAL: Chronically ill-appearing, middle-aged man who is in no distress. HEENT: Head atraumatic, normocephalic. Sclerae anicteric. Buccal mucosa dry. NECK: Supple. CHEST: Rise symmetrical. Breath sounds clear. HEART: S1, S2. ABDOMEN: Soft, bowel tones present. EXTREMITIES: Without cyanosis. ASSESSMENT: 1. Abnormal C-spine MRI with concern of septic versus inflammatory arthritis. 2. Cerebral palsy. 3. Status post ground level fall. 4. Questionable cholesteatoma on the right. PLAN: The patient remains stable. He is being seen by neurology, pending neurosurgical evaluation. Continue on current antibiotics for now. Dictated By: VIRIDIANA DESAI INTERNATIONAL MARKETING COORDINATOR for CAROLYN KRISHNAMURTHY/YOU Conf#: [id number] DID#: [id number]
[2017-08-30 19:36] VITALS: BP_SYST 111; BP_SYST 132; BP_DIAS 56; BP_DIAS 71; RESP 18
[2017-08-30] MEDS: VANCOMYCIN 1 GM in NS 250 ML IVPB SCH (21:18)
[2017-08-31] MEDS: DEXAMETHASONE 4 MG/ML 1 ML INJ IV SCH ×4 (00:04→17:32)
[2017-08-31 02:10] VITALS: BP 132/82; RESP 18
[2017-08-31] MEDS: VANCOMYCIN 1 GM in NS 250 ML IVPB SCH ×3 (04:14→22:31)
[2017-08-31] MEDS: PANTOPRAZOLE (EC) 40 MG TAB PO SCH (04:14)
[2017-08-31] MEDS: HEPARIN 5,000 UNIT/0.5 ML VIAL SC SCH ×3 (04:15→21:34)
[2017-08-31 05:53] LABS: BASOPHILS % 0.1 % (0.0-2.0); HEMATOCRIT 44.4 % (42.0-52.0); HEMOGLOBIN 14.6 g/dl (14.0-18.0); LYMPHOCYTES % 7.8 % (15.0-51.0); MEAN CORPUSCULAR HEMOGLOBIN 31.1 pg (29.0-33.0); MEAN CORPUSCULAR HGB CONC 32.9 g/dl (32.0-37.0); MEAN CORPUSCULAR VOLUME 94.7 fl (82.0-101.0); MEAN PLATELET VOLUME 11.7 fl (7.4-10.4); MONOCYTE # 0.8 10^3/ul (0.3-0.9); MONOCYTES % 6.2 % (0.0-11.0); NEUTROPHIL # 10.7 10^3/ul (1.6-7.5); NEUTROPHILS % 85.4 % (39.0-77.0); PLATELET COUNT 236 10^3/UL (140-415); RED BLOOD COUNT 4.69 10^6/ul (4.70-6.10); RED CELL DISTRIBUTION WIDTH 13.2 % (11.5-14.5); WHITE BLOOD COUNT 12.5 10^3/ul (4.8-10.8)
[2017-08-31 06:43] LABS: CALCIUM 9.1 mg/dl (8.4-10.2); CREATININE 0.68 mg/dl (0.61-1.24); POTASSIUM 4.8 mmol/L (3.5-5.1)
[2017-08-31 08:09] VITALS: BP 131/73; RESP 16
[2017-08-31] MEDS: CEFEPIME 1GM/50 ML (PMX) 50 ML IVPB SCH ×2 (08:52→21:29)
[2017-08-31] MEDS: CYANOCOBALAMIN 1000 MCG INJ IM SCH (08:52)
--- NOTE | 2017-08-31 12:31 | PN ---
Date/Time of Note Date/Time of Note DATE: 08/31/17 TIME: 12:25 Assessment/Plan VTE Prophylaxis VTE Prophylaxis Intervention: heparin Lines/Catheters IV C[facility] Type [facility]from [facility] Peripheral IV Urinary Cath still in place: No Assessment/Plan Chief Complaint/Hosp Course Assessment and plan 1. Ground-level fall with underlying suspect cerebral palsy. Patient reportedly had imaging done from outside facility that was negative for any acute findings. MRI of the brain did show possible mastoiditis as well as right sigmoid sinus suspicious for thrombus. . However recent imaging done on August 29, 2017 showed: CT scan of temporal bones with contrast showed no evidence of mastoiditis and CTA of the brain showed no dural sinus thrombosis. Continue with neurologist recommendation 2. Frequent falls . Spinal MRI with thoracic spinal stenosis. Neurosurgeon is following. On dexamethasone at this time. Follow-up with neurosurgeon if need for surgical intervention 3. Right knee pain. No fracture seen for right knee imaging. Continue with analgesics per Disposition plan: Antibiotics per ID for possible septic arthritis on cervical spinal area. Continue dexamethasone. Follow-up with neurosurgeon. Discussed plan of care with Dr. Rice Problems: Subjective 24 Hr Interval Summary Free Text/Dictation No signs of distress at this time. Less reported pain on bilateral knees Exam/Review of Systems Vital Signs Vitals Vital Signs Date Time Temp Pulse Resp B/P Pulse Ox O2 Delivery O2 Flow Rate FiO2 08/31/17 08:09 98.0 87 16 131/73 98 08/30/17 08:00 Room Air Intake and Output 08/30/17 08/30/17 08/31/17 15:00 23:00 07:00 Intake Total 50 ml 1800 ml 720 ml Output Total 800 ml 1000 ml Balance 50 ml 1000 ml -280 ml Exam General: No signs or symptoms of distress noted at this time Eyes: pupils equal round, Anicteric sclera Neck: Supple nontender, no JVD Cardiac: S1, S2 auscultated, regular rhythm and rate Pulmonary: No coarse rhonchi or breathing auscultated GI: Abdomen soft nontender nondistended, bowel sounds active Extremities: No swelling noted on right knee Skin: Clean dry and intact Neurologic: alert to self and place Results Result Diagram: 08/31/17 0459 08/31/17 0459 Results 24 hrs Laboratory Tests Test 08/31/17 04:59 White Blood Count 12.5 #H Red Blood Count 4.69 L Hemoglobin 14.6 Hematocrit 44.4 Mean Corpuscular Volume 94.7 Mean Corpuscular Hemoglobin 31.1 Mean Corpuscular Hemoglobin Concent 32.9 Red Cell Distribution Width 13.2 Platelet Count 236 Mean Platelet Volume 11.7 H Neutrophils % 85.4 H Lymphocytes % 7.8 L Monocytes % 6.2 Eosinophils % 0.0 Basophils % 0.1 Nucleated Red Blood Cells % 0.0 Neutrophils # 10.7 H Lymphocytes # 1.0 Monocytes # 0.8 Eosinophils # 0.0 Basophils # 0.0 Nucleated Red Blood Cells # 0.0 Sodium Level 139 Potassium Level 4.8 Chloride Level 107 Carbon Dioxide Level 26 Anion Gap 11 Blood Urea Nitrogen 16 Creatinine 0.68 Glucose Level 111 Calcium Level 9.1 Medications Medications Current Medications Ondansetron HCl (Zofran Inj) 4 mg Q6H PRN IV NAUSEA AND/OR VOMITING; Start 08/27/17 at 06:00 Acetaminophen (Tylenol Tab) 650 mg Q6H PRN PO PAIN LEVEL 1-3 OR FEVER Last administered on 08/27/17 21:04; Admin Dose 650 MG; Start 08/27/17 at 06:00 Pantoprazole (Protonix Tab) 40 mg DAILY@06 PO Last administered on 08/31/17 04:14; Admin Dose 40 MG; Start 08/27/17 at 06:00 Heparin Sodium (Porcine) (Heparin (5000 Units/0.5 ml)) 5,000 unit Q8 SC Last administered on 08/31/17 04:15; Admin Dose 5,000 UNIT; Start 08/27/17 at 06:00 Acetaminophen/ Hydrocodone Bitart ([place] (5/325)) 1 tab Q4H PRN PO Pain Last administered on 08/30/17 16:36; Admin Dose 1 TAB; Start 08/28/17 at 10:30 Dexamethasone 4 mg 4 mg Q6 IV Last administered on 08/31/17 12:11; Admin Dose 4 MG; Start 08/30/17 at 12:00 Cefepime HCl 50 ml @ 100 mls/hr Q12 IVPB Last administered on 08/31/17 08:52 ; Admin Dose 100 MLS/HR; Start 08/30/17 at 11:00 Vancomycin HCl (Vancocin) 250 ml @ 125 mls/hr Q8H IVPB Last administered on 04:14; Admin Dose 125 MLS/HR; Start 08/30/17 at 21:00 Cyanocobalamin (Vitamin B12 Inj) 1,000 mcg DAILY IM Last administered on 08:52; Admin Dose 1,000 MCG; Start 08/30/17 at 12:00 BRISA NEAL Aug 31, 2017 12:31
[2017-08-31 14:36] VITALS: BP 128/70; RESP 18
[2017-08-31] MEDS: HYDROCODONE/APAP (5/325) TAB PO PRN (17:32)
--- NOTE | 2017-08-31 18:06 | PN ---
Date/Time of Note Date/Time of Note DATE: 08/31/17 TIME: 18:02 Assessment/Plan Lines/Catheters IV Catheter Type (from [facility]): Peripheral IV [place] in Place (from [facility]): No Assessment/Plan Chief Complaint/Hosp Course thoracic stenosis and paraparesis. Hasn't had any significant improvement on steroids yet. Tentative OR on Tuesday for decompression, possible fusion. Rec. abx for possible cervical septic arthritis but defer to ID- no indication for debridement or surgery. Could simply be degenerative as patient without any complaints of neck pain. Problems: Subjective 24 Hr Interval Summary Patient without complaints. Eating dinner while watching TV. Denies any improvement in his LE strength. Exam/Review of Systems Vital Signs Vitals Vital Signs Date Time Temp Pulse Resp B/P Pulse Ox O2 Delivery O2 Flow Rate FiO2 08/31/17 14:36 98.2 90 18 128/70 99 08/30/17 08:00 Room Air Intake and Output 08/30/17 08/30/17 08/31/17 15:00 23:00 07:00 Intake Total 50 ml 1800 ml 720 ml Output Total 800 ml 1000 ml Balance 50 ml 1000 ml -280 ml Exam Constitutional: alert Psych: no complaints Head: normocephalic Neurological: X [employer]CHNICIAN II-XII intact, other (moves LE, difficult to formal test but while in bed moves grossly 5/5 to manual testing.) Results Result Diagram: 08/31/17 0459 08/31/17 0459 HARJIT BANEGAS MD Aug 31, 2017 18:06
[2017-08-31 18:27] LABS: HOMOCYSTEINE - CARDIOVASCULAR 8.8 umol/L (<11.4)
[2017-08-31 20:08] VITALS: BP 127/72; RESP 19
--- NOTE | 2017-08-31 22:39 | CONS ---
Date/Time of Note Date/Time of Note DATE: 08/31/17 TIME: 22:36 Assessment/Plan Assessment/Plan Chief Complaint/Hosp Course SUBJECTIVE: No acute events overnight. The patient is awake, looks comfortable , no fevers. Abx: Vanco, Cefepime PHYSICAL EXAMINATION: GENERAL: Chronically ill-appearing, middle-aged man who is in no distress. HEENT: Head atraumatic, normocephalic. Sclerae anicteric. Buccal mucosa dry. NECK: Supple. CHEST: Rise symmetrical. Breath sounds clear. HEART: S1, S2. ABDOMEN: Soft, bowel tones present. EXTREMITIES: Without cyanosis. ASSESSMENT: 1. Abnormal C-spine MRI with concern of septic versus inflammatory arthritis. 2. Cerebral palsy. 3. Status post ground level fall. 4. Questionable cholesteatoma on the right. 5. Thoracic stenosis and paraparesis==> NS on case PLAN: The patient remains stable. Continue present care, tentative OR on Tuesday for decompression, possible fusion. Consider PICC, will require 6 + weeks IV abx DW staff Problems: Consultation Date/Type/Reason Admit Date/Time Aug 27, 2017 at 04:53 Initial Consult Date 08/27/17 Type of Consultation: ID Referring Provider: HEIDI RASHEED RUBY SOFTWARE DEVELOPER Exam/Review of Systems Vital Signs Vitals Vital Signs Date Time Temp Pulse Resp B/P Pulse Ox O2 Delivery O2 Flow Rate FiO2 08/31/17 20:08 97.7 95 19 127/72 95 08/30/17 08:00 Room Air Intake and Output 08/30/17 08/30/17 08/31/17 15:00 23:00 07:00 Intake Total 50 ml 1800 ml 720 ml Output Total 800 ml 1000 ml Balance 50 ml 1000 ml -280 ml Results Result Diagram: 08/31/17 0459 08/31/17 0459 Results 24 hrs Laboratory Tests Test 08/31/17 04:59 08/31/17 12:09 White Blood Count 12.5 #H Red Blood Count 4.69 L Hemoglobin 14.6 Hematocrit 44.4 Mean Corpuscular Volume 94.7 Mean Corpuscular Hemoglobin 31.1 Mean Corpuscular Hemoglobin Concent 32.9 Red Cell Distribution Width 13.2 Platelet Count 236 Mean Platelet Volume 11.7 H Neutrophils % 85.4 H Lymphocytes % 7.8 L Monocytes % 6.2 Eosinophils % 0.0 Basophils % 0.1 Nucleated Red Blood Cells % 0.0 Neutrophils # 10.7 H Lymphocytes # 1.0 Monocytes # 0.8 Eosinophils # 0.0 Basophils # 0.0 Nucleated Red Blood Cells # 0.0 Sodium Level 139 Potassium Level 4.8 Chloride Level 107 Carbon Dioxide Level 26 Anion Gap 11 Blood Urea Nitrogen 16 Creatinine 0.68 Glucose Level 111 Calcium Level 9.1 Vancomycin Level Trough 12.1 Medications Medications Current Medications Ondansetron HCl (Zofran Inj) 4 mg Q6H PRN IV NAUSEA AND/OR VOMITING; Start 08/27/17 at 06:00 Acetaminophen (Tylenol Tab) 650 mg Q6H PRN PO PAIN LEVEL 1-3 OR FEVER Last administered on 08/27/17 21:04; Admin Dose 650 MG; Start 08/27/17 at 06:00 Pantoprazole (Protonix Tab) 40 mg DAILY@06 PO Last administered on 08/31/17 04:14; Admin Dose 40 MG; Start 08/27/17 at 06:00 Heparin Sodium (Porcine) (Heparin (5000 Units/0.5 ml)) 5,000 unit Q8 SC Last administered on 08/31/17 21:34; Admin Dose 5,000 UNIT; Start 08/27/17 at 06:00 Acetaminophen/ Hydrocodone Bitart ([place] (5/325)) 1 tab Q4H PRN PO Pain Last administered on 08/31/17 17:32; Admin Dose 1 TAB; Start 08/28/17 at 10:30 Dexamethasone 4 mg 4 mg Q6 IV Last administered on 08/31/17 17:32; Admin Dose 4 MG; Start 08/30/17 at 12:00 Cefepime HCl 50 ml @ 100 mls/hr Q12 IVPB Last administered on 08/31/17 21:29 ; Admin Dose 100 MLS/HR; Start 08/30/17 at 11:00 Vancomycin HCl (Vancocin) 250 ml @ 125 mls/hr Q8H IVPB Last administered on 22:31; Admin Dose 125 MLS/HR; Start 08/30/17 at 21:00 Cyanocobalamin (Vitamin B12 Inj) 1,000 mcg DAILY IM Last administered on 08:52; Admin Dose 1,000 MCG; Start 08/30/17 at 12:00 VIRIDIANA DESAI NP Aug 31, 2017 22:39
[2017-09-01] MEDS: DEXAMETHASONE 4 MG/ML 1 ML INJ IV SCH ×4 (00:16→17:54)
[2017-09-01 02:42] VITALS: BP 117/75; RESP 18
[2017-09-01] MEDS: VANCOMYCIN 1 GM in NS 250 ML IVPB SCH ×3 (05:16→22:02)
[2017-09-01] MEDS: PANTOPRAZOLE (EC) 40 MG TAB PO SCH (05:17)
[2017-09-01] MEDS: HEPARIN 5,000 UNIT/0.5 ML VIAL SC SCH ×3 (05:26→21:52)
[2017-09-01 06:54] LABS: BASOPHILS % 0.1 % (0.0-2.0); HEMATOCRIT 43.3 % (42.0-52.0); HEMOGLOBIN 14.5 g/dl (14.0-18.0); LYMPHOCYTES # 0.8 10^3/ul (0.8-2.9); LYMPHOCYTES % 4.5 % (15.0-51.0); MEAN CORPUSCULAR HEMOGLOBIN 31.9 pg (29.0-33.0); MEAN CORPUSCULAR HGB CONC 33.5 g/dl (32.0-37.0); MEAN CORPUSCULAR VOLUME 95.4 fl (82.0-101.0); MEAN PLATELET VOLUME 12.2 fl (7.4-10.4); MONOCYTE # 0.7 10^3/ul (0.3-0.9); MONOCYTES % 3.9 % (0.0-11.0); NEUTROPHIL # 16.7 10^3/ul (1.6-7.5); NEUTROPHILS % 90.5 % (39.0-77.0); PLATELET COUNT 248 10^3/UL (140-415); RED BLOOD COUNT 4.54 10^6/ul (4.70-6.10); RED CELL DISTRIBUTION WIDTH 13.4 % (11.5-14.5); WHITE BLOOD COUNT 18.5 10^3/ul (4.8-10.8)
[2017-09-01 07:02] LABS: CALCIUM 9.1 mg/dl (8.4-10.2); CREATININE 0.65 mg/dl (0.61-1.24); POTASSIUM 4.3 mmol/L (3.5-5.1)
[2017-09-01] MEDS: HYDROCODONE/APAP (5/325) TAB PO PRN ×3 (07:28→17:55)
[2017-09-01 07:59] VITALS: BP 131/86; RESP 20
--- NOTE | 2017-09-01 08:26 | CONS ---
DATE OF ADMISSION: 08/27/2017 DATE OF CONSULTATION: 08/30/2017 TYPE OF CONSULTATION: Neurosurgical. INDICATION FOR CONSULTATION: Lower extremity weakness. CONSULTATION REQUESTED BY: Dominick Patrick NP. HISTORY OF PRESENT ILLNESS: The patient is a 37-year-old male who is developmentally delayed, who a pparently has been having lower extremity weakness. History was obtained from both the patient and his mother. The patient is able to give some history though not in a detailed fashion. He admits t hat he feels weakness and has had difficulty walking and apparently unable to walk for the past week . I spoke with the patient's mother who states for the past 6 months the patient has had more diffi culty walking. She states he always had some incoordination and imbalance but was able to work a molly b and for the most part ambulate functionally. However, the patient reportedly had a ground level f all on 08/26/2017 and since that time had been unable to stand. Prior to this, the patient had been having some more difficulty with walking. The patient's mother states the patient apparently has b ilateral inguinal hernias and has complained of some hip pain as a result of this. The patient appa rently has had some difficulty with insurance in having these treated. The patient denies that he h it his head when he fell and denies any radiating pain down his legs or significant back pain. He a lso denies any neck pain or radiating upper extremity pain. He denies any numbness or tingling in h is arms or hands, but also denies any in his lower extremities. The patient was initially taken to [facility] on the and a head CT was performed that was negative as well as some x-rays of his knees. He was transferred to [facility] on the for further care. The next day the patient had an MRI of the cervical and thoracic spine performed. The MRI of the thorac ic spine shows severe acquired central canal stenosis at T9 to 10 and T10 to 11 with abnormal cord s ignal and mild volume loss suggesting myelomalacia. There is also moderate to severe bilateral neur al foraminal stenosis on the right greater than left at T8 to 9 through T11 to 10 and mild discogeni c changes at T5 to 6. The cervical spine showed some abnormal bone marrow signal surrounding soft t issue edema on the left at C3 to 4 facet joint and there is increased effusion and small focus of pr obable erosion involving left inferior articular facet of C3. This was reported by the radiologist, Dr. Rita Edward as concerning for septic inflammatory arthritis. There is a small amount of enhanci ng soft tissue that was felt to likely be phlegmon around the left facet joint extending into the le ft neural foramen, but no definite epidural fluid collection identified. There is also mild to mode rate asymmetric canal stenosis at C6 to 7 and mild neural foraminal stenosis. There is mild central canal stenosis and moderate bilateral neural foraminal stenosis C4 to 5. PAST MEDICAL HISTORY: Developmental delay. According to the patient's mother, the patient was claudette rasmussen diagnosed with cerebral palsy, but was developmentally delayed. She states he did not walk until age 7. REVIEW OF SYSTEMS: Twelve-point review of system for patient positives and negatives listed as pres ent illness and below, though limited secondary to patient's cognitive status. CONSTITUTIONAL: Denies any fevers, chills. HEMATOLOGIC: Denies any history of easy bruising or bleeding. PAST MEDICAL HISTORY: Significant for bilateral inguinal hernias and developmental delay. PAST SURGICAL HISTORY: As per report, none. SOCIAL HISTORY: Alcohol: Nondrinker, nonsmoker, lives with his mother. PHYSICAL EXAMINATION: VITAL SIGNS: The patient's temperature 97.6, pulse 78, respirations 18, blood pressure 130/69, satu rating 98% on room air. GENERAL: The patient is a thin male lying in the hospital bed in no acute distress. HEAD AND NECK: Patient is normocephalic, atraumatic. His neck is supple, nontender. He has no Lhe rmitte's or Spurling's sign. LUNGS: Clear to auscultation. CARDIAC: Regular rhythm. ABDOMEN: Nontender, nondistended, soft. EXTREMITIES: No clubbing, cyanosis, or edema. He has no obvious atrophy. NEUROLOGIC: The patient is awake. He is alert. He is developmentally delayed. He has dysarthric and slow speech, often times he will not answer questions as it is not clear that he understand them . Cranial nerves II through XII are grossly intact. His motor exam is 5/5 bilateral upper extremit ies. He moves his lower extremities grossly 5/5 with his iliopsoas, quadriceps, anterior tibialis, tibialis longus and gastrocnemius. He does not appear to have clear spasticity, though he may have some brisk reflexes in his patella. He does not have clonus or Babinski sign and does not have a Ho ffmann sign. He appears to have grossly intact sensation though difficulty testing secondary to preston rologic condition. He has no pain with palpation in his back. Gait was not assessed as patient was unable to stand out of the bed. LABORATORY DATA: White count was 6.1, hemoglobin 15.1, platelets 241. His sodium was 139, BUN and creatinine at 13 and 0.83. REVIEW OF RADIOGRAPHIC RESULTS: I reviewed the patient's multiple studies including his thoracic MR I, cervical spine MRI, as well as MRI of the brain and MRA of the brain which were reported normal e xcept for tortuous intracranial arteries for the MRA. The MRI of the brain did not show any evidenc e of any type of clear developmental deformity. He is also noted to have an enhancing right anterio r mastoid cell that was reported concerning for mastoiditis. There was also reported apparent filli ng defect in the right sigmoid sinus that was suspicious for thrombus, reportedly secondary to the a djacent mastoiditis. ASSESSMENT AND PLAN: A 37-year-old developmentally delayed male with lower extremity weakness. I d iscussed the patient's signs, symptoms, physical examination, and radiographic findings with the ray rutherford's mother. The patient appears to have weakness though there was some difficulty in assessing h ow weak he is. He does not report any significant pain. The patient has stenosis and cord signal c hange. The patient denies any bowel or bladder incontinence, though was unclear how reliable this i s. Overall the patient does have bony stenosis and this may be the source of the patient's lower ex tremity symptoms. It is unclear if this was an acute change from a fall, but this appears to be a c hronic developing issue. Given the duration of the patient's weakness, it is unclear if this will r esolve; however, decompression may help the patient. I would like to get a CT of the thoracic spine to assess as this appears to be a degenerative spondylosis and likely bony compression. It is uncl ear why the patient has this. The patient appears to have cerebral palsy beyond just developmental delay and he does appear to have loss of thoracic kyphosis and a slight bit of scoliosis as well as seen with patients with spasticity from cerebral palsy. The patient also some cervical stenosis, th ough I do not see any evidence of cord signal change nor does he report any upper extremity symptoms . I therefore feel that decompression of thoracic spine would be the best treatment as this is like ly the most symptomatic area for the patient. Further information needs to be obtained and therefore, I think the patient should be started on kari e steroids to see if this may help with any edema from thoracic compression. The actual reason for the consultation was regarding the C3 to 4 reported septic arthritic joints. There is some slight enhancement in the foramen and the joint itself does appear to have some arthro antelmo and perhaps arthritis. This does not impinge on the spinal cord and the patient does not repo rt any symptoms of any neck pain nor does he have a white count or elevated sed rate. Therefore, it would seem unlikely the patient actually has a septic arthritis, indeed cervical septic arthritis i s extremely rare. Nevertheless, given the radiographic findings, it would appear reasonable to laquita t the patient with antibiotics as to prevent this from potentially worsening into a more significant issue. I will defer to ID for treatment recommendations in this regard, but there does not appear to be any surgical indication for any type of debridement or decompression as there does not appear to actually be any significant compressive phlegmon or is the patient symptomatic. Lastly, the donna ent reportedly has mastoiditis and may have a thrombus in the sinus per the radiologist. Again, I w ould defer this to neurology and ID as far as whether the patient actually has mastoiditis and has a thrombus present and for treatment of such issues. Again, the patient does not appear to be sympto matic from mastoiditis and does not appear to have a white count. I discussed this with the patient 's mother who expressed understanding and agreement with this plan of care. Thank you for allowing me to participate in the care of this patient. Dictated By: HARJIT BANEGAS MD, LG/YOU Conf#: [id number] DID#: [id number]
[2017-09-01] MEDS: CEFEPIME 1GM/50 ML (PMX) 50 ML IVPB SCH ×2 (09:00→20:50)
[2017-09-01] MEDS: CYANOCOBALAMIN 1000 MCG INJ IM SCH (09:00)
[2017-09-01] MEDS ORDERED: KETOROLAC 30 MG INJ IV PRN (09:30)
[2017-09-01] MEDS: morphine 2 MG INJ IV PRN ×3 (09:59→20:51)
--- NOTE | 2017-09-01 10:18 | PN ---
Date/Time of Note Date/Time of Note DATE: 09/01/17 TIME: 10:14 Assessment/Plan VTE Prophylaxis VTE Prophylaxis Intervention: SCD's Lines/Catheters IV [facility]from [facility] Urinary Cath still in place: No Assessment/Plan Chief Complaint/Hosp Course Assessment and plan 1. Ground-level fall with underlying suspect cerebral palsy. Patient reportedly had imaging done from outside facility that was negative for any acute findings. MRI of the brain did show possible mastoiditis as well as right sigmoid sinus suspicious for thrombus. . However recent imaging done on August 29, 2017 showed: CT scan of temporal bones with contrast showed no evidence of mastoiditis and CTA of the brain showed no dural sinus thrombosis. Continue with neurologist recommendation 2. Frequent falls . Spinal MRI with thoracic spinal stenosis. Neurosurgeon is following. On dexamethasone at this time. Tentative plan for thoracic spinal surgery. Will follow up on MRI of the lumbar spine 3. Right knee pain. No fracture seen for right knee imaging. Continue with analgesics Disposition plan: Antibiotics per ID for possible septic arthritis on cervical spinal area.Plan for MRI of the lumbar spine. Follow-up with consultants for medical clearance. Plan for thoracic surgical intervention on September 02, 2017. Discussed plan of care with Dr. Rice Problems: Subjective 24 Hr Interval Summary Free Text/Dictation comfortable at this time. no specific complaints Exam/Review of Systems Vital Signs Vitals Vital Signs Date Time Temp Pulse Resp B/P Pulse Ox O2 Delivery O2 Flow Rate FiO2 09/01/17 07:59 98.1 84 20 131/86 98 08/30/17 08:00 Room Air Intake and Output 08/31/17 08/31/17 09/01/17 14:59 22:59 06:59 Intake Total 50 ml 1890 ml 980 ml Output Total 1225 ml 1000 ml Balance 50 ml 665 ml -20 ml Exam General: No signs or symptoms of distress noted at this time Eyes: pupils equal round, Anicteric sclera Neck: Supple nontender, no JVD Cardiac: S1, S2 auscultated, regular rhythm and rate Pulmonary: No coarse rhonchi or breathing auscultated GI: Abdomen soft nontender nondistended, bowel sounds active Extremities: No swelling noted on right knee Skin: Clean dry and intact Neurologic: alert to self and place Results Result Diagram: 09/01/1744 09/01/1744 Results 24 hrs Laboratory Tests Test 08/31/17 12:09 09/01/17 05:44 Vancomycin Level Trough 12.1 White Blood Count 18.5 #H Red Blood Count 4.54 L Hemoglobin 14.5 Hematocrit 43.3 Mean Corpuscular Volume 95.4 Mean Corpuscular Hemoglobin 31.9 Mean Corpuscular Hemoglobin Concent 33.5 Red Cell Distribution Width 13.4 Platelet Count 248 Mean Platelet Volume 12.2 H Neutrophils % 90.5 H Lymphocytes % 4.5 L Monocytes % 3.9 Eosinophils % 0.0 Basophils % 0.1 Nucleated Red Blood Cells % 0.0 Neutrophils # 16.7 H Lymphocytes # 0.8 Monocytes # 0.7 Eosinophils # 0.0 Basophils # 0.0 Nucleated Red Blood Cells # 0.0 Sodium Level 138 Potassium Level 4.3 Chloride Level 106 Carbon Dioxide Level 27 Anion Gap 9 Blood Urea Nitrogen 15 Creatinine 0.65 Glucose Level 112 Calcium Level 9.1 Medications Medications Current Medications Ondansetron HCl (Zofran Inj) 4 mg Q6H PRN IV NAUSEA AND/OR VOMITING; Start 08/27/17 at 06:00 Acetaminophen (Tylenol Tab) 650 mg Q6H PRN PO PAIN LEVEL 1-3 OR FEVER Last administered on 08/27/17 21:04; Admin Dose 650 MG; Start 08/27/17 at 06:00 Pantoprazole (Protonix Tab) 40 mg DAILY@06 PO Last administered on 09/01/17 05:17; Admin Dose 40 MG; Start 08/27/17 at 06:00 Heparin Sodium (Porcine) (Heparin (5000 Units/0.5 ml)) 5,000 unit Q8 SC Last administered on 09/01/17 05:26; Admin Dose 5,000 UNIT; Start 08/27/17 at 06:00 Acetaminophen/ Hydrocodone Bitart ([place] (5/325)) 1 tab Q4H PRN PO Pain Last administered on 09/01/17 07:28; Admin Dose 1 TAB; Start 08/28/17 at 10:30 Dexamethasone 4 mg 4 mg Q6 IV Last administered on 09/01/17 05:16; Admin Dose 4 MG; Start 08/30/17 at 12:00 Cefepime HCl 50 ml @ 100 mls/hr Q12 IVPB Last administered on 09/01/17 09:00 ; Admin Dose 100 MLS/HR; Start 08/30/17 at 11:00 Vancomycin HCl (Vancocin) 250 ml @ 125 mls/hr Q8H IVPB Last administered on 05:16; Admin Dose 125 MLS/HR; Start 08/30/17 at 21:00 Cyanocobalamin (Vitamin B12 Inj) 1,000 mcg DAILY IM Last administered on 09:00; Admin Dose 1,000 MCG; Start 08/30/17 at 12:00 Morphine Sulfate (morphine) 2 mg Q4H PRN IV pain Last administered on 09:59; Admin Dose 2 MG; Start 09/01/17 at 09:30 BRISA NEAL Sep 01, 2017 10:18
--- NOTE | 2017-09-01 11:17 | CONS ---
Date/Time of Note Date/Time of Note DATE: 09/01/17 TIME: 11:14 Consult Date/Type/Reason Admit Date/Time Aug 27, 2017 at 04:53 Initial Consult Date 08/27/17 Type of Consultation: Neurology Reason for Consultation LE weakness, falls Ordering Provider: HEIDI RASHEED SALES CONSULTING DIRECTOR Subjective remains stable evaluated by neurosurgery started on steroids further imaging pending may be planned for neurosurgical intervention - decompression/fusion Objective Vital Signs Date Time Temp Pulse Resp B/P Pulse Ox O2 Delivery O2 Flow Rate FiO2 09/01/17 07:59 98.1 84 20 131/86 98 08/30/17 08:00 Room Air Intake and Output 08/31/17 08/31/17 09/01/17 15:00 23:00 07:00 Intake Total 50 ml 1890 ml 980 ml Output Total 1225 ml 1000 ml Balance 50 ml 665 ml -20 ml Exam awake and alert oriented to name minimally verbal states his name CN: II-XII intact Motor: Bilateral UE 5/5 mild weakness RLE 5-/5 compared to Left 5/5 Reflexes 3+ throughout toes withdraw bilaterally Tone is wnl Coordination: poor cooperation with FTN Sensory is intact throughout Results/Medications Result Diagram: 09/01/17 0544 09/01/17 0544 Results 24 hrs Laboratory Tests Test 08/31/17 12:09 09/01/17 05:44 Vancomycin Level Trough 12.1 White Blood Count 18.5 #H Red Blood Count 4.54 L Hemoglobin 14.5 Hematocrit 43.3 Mean Corpuscular Volume 95.4 Mean Corpuscular Hemoglobin 31.9 Mean Corpuscular Hemoglobin Concent 33.5 Red Cell Distribution Width 13.4 Platelet Count 248 Mean Platelet Volume 12.2 H Neutrophils % 90.5 H Lymphocytes % 4.5 L Monocytes % 3.9 Eosinophils % 0.0 Basophils % 0.1 Nucleated Red Blood Cells % 0.0 Neutrophils # 16.7 H Lymphocytes # 0.8 Monocytes # 0.7 Eosinophils # 0.0 Basophils # 0.0 Nucleated Red Blood Cells # 0.0 Sodium Level 138 Potassium Level 4.3 Chloride Level 106 Carbon Dioxide Level 27 Anion Gap 9 Blood Urea Nitrogen 15 Creatinine 0.65 Glucose Level 112 Calcium Level 9.1 Medications Current Medications Ondansetron HCl (Zofran Inj) 4 mg Q6H PRN IV NAUSEA AND/OR VOMITING; Start 08/27/17 at 06:00 Acetaminophen (Tylenol Tab) 650 mg Q6H PRN PO PAIN LEVEL 1-3 OR FEVER Last administered on 08/27/17 21:04; Admin Dose 650 MG; Start 08/27/17 at 06:00 Pantoprazole (Protonix Tab) 40 mg DAILY@06 PO Last administered on 09/01/17 05:17; Admin Dose 40 MG; Start 08/27/17 at 06:00 Heparin Sodium (Porcine) (Heparin (5000 Units/0.5 ml)) 5,000 unit Q8 SC Last administered on 09/01/17 05:26; Admin Dose 5,000 UNIT; Start 08/27/17 at 06:00 Acetaminophen/ Hydrocodone Bitart ([place] (5/325)) 1 tab Q4H PRN PO Pain Last administered on 09/01/17 07:28; Admin Dose 1 TAB; Start 08/28/17 at 10:30 Dexamethasone 4 mg 4 mg Q6 IV Last administered on 09/01/17 05:16; Admin Dose 4 MG; Start 08/30/17 at 12:00 Cefepime HCl 50 ml @ 100 mls/hr Q12 IVPB Last administered on 09/01/17 09:00 ; Admin Dose 100 MLS/HR; Start 08/30/17 at 11:00 Vancomycin HCl (Vancocin) 250 ml @ 125 mls/hr Q8H IVPB Last administered on 05:16; Admin Dose 125 MLS/HR; Start 08/30/17 at 21:00 Cyanocobalamin (Vitamin B12 Inj) 1,000 mcg DAILY IM Last administered on 09:00; Admin Dose 1,000 MCG; Start 08/30/17 at 12:00 Morphine Sulfate (morphine) 2 mg Q4H PRN IV pain Last administered on 09:59; Admin Dose 2 MG; Start 09/01/17 at 09:30 Assessment/Plan Chief Complaint/Hosp Course 37 year old male with history of Cerebral Palsy admitted with increasing frequency of falls, ataxia and urinary incontinence over 1 year. MRI Brain: 1. No evidence of acute ischemia/infarct, intracranial hemorrhage, midline shift , or hydrocephalous. 2. Enhancing right anterior mastoid air cells, concerning for mastoiditis. Apparent filling defect within the right sigmoid sinus, suspicious for thrombus , possibly secondary to adjacent mastoiditis. A prominent arachnoid granulation is considered less likely. Recommend CT temporal bone and CTV for further evaluation. MRA 1. Tortuous intracranial arteries with no significant stenosis or occlusion. 2. No cerebral aneurysms or vascular malformations. MRI C Spine 1. Abnormal bone marrow signal with surrounding soft tissue edema involving the left C3-C4 facet joint. Increased joint effusion and small focus of probable erosion involving the left inferior articular facet of C3. The findings are concerning for septic/inflammatory arthritis. Small amount of enhancing soft tissue likely a phlegmon around the left facet joint extending into the left neural foramen. No definite epidural fluid collection is identified. 2. Mild to moderate asymmetric central canal stenosis at C6-C7 with left-sided neural foraminal stenosis. 3. Mild central canal stenosis and moderate bilateral neural foraminal stenosis at C4-C5. MRI Thoracic Spine: 1. Severe acquired central canal stenosis at T9-T10 and T10-T11 with abnormal cord signal and mild volume loss suggesting myelomalacia. 2. Moderate to severe bilateral neural foraminal stenosis right greater than left at T8-T9 through T11-T12. 3. Mild discogenic disease at T5-T6. The remainder as above. CTA done no concern for sinus thrombosis. Suspect etiology for LE weakness is secondary to Thoracic MRI findings with show severe stenosis at T9-10 abnormal cord signal volume loss. Supplement B12 on steroids w no improvement in sx ID following for any possible infectious issues, CTA studies show no evidence of sinus thrombosis recommend proceed with neurosurgical intervention as planned, will sign off please reconsult as needed Problems: CARRI SCHIMDT MD Sep 01, 2017 11:17
--- NOTE | 2017-09-01 12:02 | RADRPT ---
PROCEDURE: XR Chest. CLINICAL INDICATION: Dyspnea TECHNIQUE: Single frontal view of the chest was obtained COMPARISON: None FINDINGS: No pleural effusion or pneumothorax. No consolidation. Unremarkable cardiomediastinal silhouette. No acute osseous abnormality. IMPRESSION: No acute cardiopulmonary disease. RPTAT: EE Caro Blackman Physician Date Time Electronically viewed and signed by Caro Blackman Physician on 09/01/2017 12:02 /
--- NOTE | 2017-09-01 13:50 | CONS ---
Date/Time of Note Date/Time of Note DATE: 09/01/17 TIME: 13:49 Assessment/Plan Assessment/Plan Chief Complaint/Hosp Course SUBJECTIVE: No acute events overnight. The patient is awake, looks comfortable , no fevers. Abx: Vanco, Cefepime PHYSICAL EXAMINATION: GENERAL: Chronically ill-appearing, middle-aged man who is in no distress. HEENT: Head atraumatic, normocephalic. Sclerae anicteric. Buccal mucosa dry. NECK: Supple. CHEST: Rise symmetrical. Breath sounds clear. HEART: S1, S2. ABDOMEN: Soft, bowel tones present. EXTREMITIES: Without cyanosis. ASSESSMENT: 1. Abnormal C-spine MRI with concern of septic versus inflammatory arthritis. 2. Leukocytosis==> on Decadron. 3. Status post ground level fall. 4. Questionable cholesteatoma on the right. 5. Thoracic stenosis and paraparesis==> NS on case 6. Hx cerebral palsy PLAN: The patient remains stable. Continue present care, tentative OR on Tuesday for decompression, possible fusion. Consider PICC, will require 6 + weeks IV abx [facility] staff Problems: Consultation Date/Type/Reason Admit Date/Time Aug 27, 2017 at 04:53 Initial Consult Date 08/27/17 Type of Consultation: ID Referring Provider: HEIDI RASHEED PIPELAYER Exam/Review of Systems Vital Signs Vitals Vital Signs Date Time Temp Pulse Resp B/P Pulse Ox O2 Delivery O2 Flow Rate FiO2 09/01/17 07:59 98.1 84 20 131/86 98 08/30/17 08:00 Room Air Intake and Output 08/31/17 08/31/17 09/01/17 15:00 23:00 07:00 Intake Total 50 ml 1890 ml 980 ml Output Total 1225 ml 1000 ml Balance 50 ml 665 ml -20 ml Results Result Diagram: 09/01/17 0544 09/01/17 0544 Results 24 hrs Laboratory Tests Test 09/01/17 05:44 White Blood Count 18.5 #H Red Blood Count 4.54 L Hemoglobin 14.5 Hematocrit 43.3 Mean Corpuscular Volume 95.4 Mean Corpuscular Hemoglobin 31.9 Mean Corpuscular Hemoglobin Concent 33.5 Red Cell Distribution Width 13.4 Platelet Count 248 Mean Platelet Volume 12.2 H Neutrophils % 90.5 H Lymphocytes % 4.5 L Monocytes % 3.9 Eosinophils % 0.0 Basophils % 0.1 Nucleated Red Blood Cells % 0.0 Neutrophils # 16.7 H Lymphocytes # 0.8 Monocytes # 0.7 Eosinophils # 0.0 Basophils # 0.0 Nucleated Red Blood Cells # 0.0 Sodium Level 138 Potassium Level 4.3 Chloride Level 106 Carbon Dioxide Level 27 Anion Gap 9 Blood Urea Nitrogen 15 Creatinine 0.65 Glucose Level 112 Calcium Level 9.1 Medications Medications Current Medications Ondansetron HCl (Zofran Inj) 4 mg Q6H PRN IV NAUSEA AND/OR VOMITING; Start 08/27/17 at 06:00 Acetaminophen (Tylenol Tab) 650 mg Q6H PRN PO PAIN LEVEL 1-3 OR FEVER Last administered on 08/27/17 21:04; Admin Dose 650 MG; Start 08/27/17 at 06:00 Pantoprazole (Protonix Tab) 40 mg DAILY@06 PO Last administered on 09/01/17 05:17; Admin Dose 40 MG; Start 08/27/17 at 06:00 Heparin Sodium (Porcine) (Heparin (5000 Units/0.5 ml)) 5,000 unit Q8 SC Last administered on 09/01/17 05:26; Admin Dose 5,000 UNIT; Start 08/27/17 at 06:00 Acetaminophen/ Hydrocodone Bitart ([place] (5/325)) 1 tab Q4H PRN PO Pain Last administered on 09/01/17 11:58; Admin Dose 1 TAB; Start 08/28/17 at 10:30 Dexamethasone 4 mg 4 mg Q6 IV Last administered on 09/01/17 11:57; Admin Dose 4 MG; Start 08/30/17 at 12:00 Cefepime HCl 50 ml @ 100 mls/hr Q12 IVPB Last administered on 09/01/17 09:00 ; Admin Dose 100 MLS/HR; Start 08/30/17 at 11:00 Vancomycin HCl (Vancocin) 250 ml @ 125 mls/hr Q8H IVPB Last administered on 12:45; Admin Dose 125 MLS/HR; Start 08/30/17 at 21:00 Cyanocobalamin (Vitamin B12 Inj) 1,000 mcg DAILY IM Last administered on 09:00; Admin Dose 1,000 MCG; Start 08/30/17 at 12:00 Morphine Sulfate (morphine) 2 mg Q4H PRN IV pain Last administered on t 09:59; Admin Dose 2 MG; Start 09/01/17 at 09:30 VIRIDIANA DESAI NP Sep 01, 2017 13:50
[2017-09-01 14:30] VITALS: BP 124/70; RESP 18
--- NOTE | 2017-09-01 17:35 | RADRPT ---
PROCEDURE: MRI lumbar spine without contrast CLINICAL INDICATION: Weakness TECHNIQUE: An high-resolution MRI of the lumbar spine was performed utilizing the following sequen kavita: Sagittal and axial T1 weighted, sagittal and axial T2 weighted, and sagittal fat suppressed T2 . COMPARISON: Correlation thoracic spine MR 08/27/2017 FINDINGS: For the purposes of this report, the most inferior well formed disc is classified as L5-S1. Partially imaged lower thoracic cord T2 hyperintense signal at T11. No acute vertebral compression fracture. No evidence of a diffuse marrow replacing process. The conu s medullaris terminates at upper L2 level. T12 - L1: The disk is preserved in height. There is no significant disk protrusion, spinal canal or foraminal stenosis. L1 - L2: The disk is preserved in height. There is no significant disk protrusion, spinal canal or foraminal stenosis. L2 - L3: The disk is preserved in height. There is no significant disk protrusion, spinal canal or foraminal stenosis. L3 - L4: The disk is preserved in height. There is no significant disk protrusion, spinal canal or foraminal stenosis. L4 - L5: The disk is preserved in height. Small disc bulge and facet arthropathy. Narrowing of th e lateral recess bilaterally without significant spinal canal narrowing. Moderate right and mild lef t foraminal narrowing. L5 - S1: The disk is preserved in height. Disc desiccation. There is no significant disk protrusio n, spinal canal or foraminal stenosis. Paraspinal soft tissues are unremarkable. IMPRESSION: No acute lumbar compression fracture or significant lumbar spinal canal stenosis. Mild lower lumbar spine degenerative changes L4-5 and L5-S1. Partially imaged lower thoracic cord T2 hyperintense signal at T11. Refer to prior thoracic spine MR I for details. RPTAT: AA .Yuval Reveles MD, MD Date Time Electronically viewed and signed by .Yuval Reveles MD, MD on 09/01/2017 17:34 .T/
--- NOTE | 2017-09-01 19:11 | CONS ---
Date/Time of Note Date/Time of Note DATE: 09/01/17 TIME: 19:06 Assessment/Plan Assessment/Plan Chief Complaint/Hosp Course thoracic stenosis and paraparesis. D/W mother. OR tomorrow for decompression in areas of stenosis and cord signal change T9-T11. I explained that given the duration of his weakness, it is unclear if his strength will improve but hopefully decompression will prevent worsening. I discussed the risk, benefits and alternatives of surgery in detail with the mother who agreed with surgical intervention. Problems: Consultation Date/Type/Reason Admit Date/Time Aug 27, 2017 at 04:53 Initial Consult Date 08/27/17 Type of Consultation: ID Referring Provider: HEIDI RASHEED NP 24 HR Interval Summary Free Text/Dictation Patient stable. Denies any improvement in LE strength but denies numbness or UE weakness or neck pain. Exam/Review of Systems Vital Signs Vitals Vital Signs Date Time Temp Pulse Resp B/P Pulse Ox O2 Delivery O2 Flow Rate FiO2 09/01/17 14:30 98.3 89 18 124/70 98 08/30/17 08:00 Room Air Intake and Output 08/31/17 08/31/17 09/01/17 15:00 23:00 07:00 Intake Total 50 ml 1890 ml 980 ml Output Total 1225 ml 1000 ml Balance 50 ml 665 ml -20 ml Exam Constitutional: alert Neurological: other (more complaint for exam today. UE 5/5, LE R IP 3/5, KF, AT ,EHL, G 4-/5, L IP 4/5, Q 4/5 EHL 4-/5 G 4/5) Results Result Diagram: 09/01/17 0544 09/01/17 0544 Results 24 hrs Laboratory Tests Test 09/01/17 05:44 White Blood Count 18.5 #H Red Blood Count 4.54 L Hemoglobin 14.5 Hematocrit 43.3 Mean Corpuscular Volume 95.4 Mean Corpuscular Hemoglobin 31.9 Mean Corpuscular Hemoglobin Concent 33.5 Red Cell Distribution Width 13.4 Platelet Count 248 Mean Platelet Volume 12.2 H Neutrophils % 90.5 H Lymphocytes % 4.5 L Monocytes % 3.9 Eosinophils % 0.0 Basophils % 0.1 Nucleated Red Blood Cells % 0.0 Neutrophils # 16.7 H Lymphocytes # 0.8 Monocytes # 0.7 Eosinophils # 0.0 Basophils # 0.0 Nucleated Red Blood Cells # 0.0 Sodium Level 138 Potassium Level 4.3 Chloride Level 106 Carbon Dioxide Level 27 Anion Gap 9 Blood Urea Nitrogen 15 Creatinine 0.65 Glucose Level 112 Calcium Level 9.1 Medications Medications Current Medications Ondansetron HCl (Zofran Inj) 4 mg Q6H PRN IV NAUSEA AND/OR VOMITING; Start 08/27/17 at 06:00 Acetaminophen (Tylenol Tab) 650 mg Q6H PRN PO PAIN LEVEL 1-3 OR FEVER Last administered on 08/27/17 21:04; Admin Dose 650 MG; Start 08/27/17 at 06:00 Pantoprazole (Protonix Tab) 40 mg DAILY@06 PO Last administered on 09/01/17 05:17; Admin Dose 40 MG; Start 08/27/17 at 06:00 Heparin Sodium (Porcine) (Heparin (5000 Units/0.5 ml)) 5,000 unit Q8 SC Last administered on 09/01/17 05:26; Admin Dose 5,000 UNIT; Start 08/27/17 at 06:00 Acetaminophen/ Hydrocodone Bitart ([place] (5/325)) 1 tab Q4H PRN PO Pain Last administered on 09/01/17 17:55; Admin Dose 1 TAB; Start 08/28/17 at 10:30 Dexamethasone 4 mg 4 mg Q6 IV Last administered on 09/01/17 17:54; Admin Dose 4 MG; Start 08/30/17 at 12:00 Cefepime HCl 50 ml @ 100 mls/hr Q12 IVPB Last administered on 09/01/17 09:00 ; Admin Dose 100 MLS/HR; Start 08/30/17 at 11:00 Vancomycin HCl (Vancocin) 250 ml @ 125 mls/hr Q8H IVPB Last administered on 12:45; Admin Dose 125 MLS/HR; Start 08/30/17 at 21:00 Cyanocobalamin (Vitamin B12 Inj) 1,000 mcg DAILY IM Last administered on 09:00; Admin Dose 1,000 MCG; Start 08/30/17 at 12:00 Morphine Sulfate (morphine) 2 mg Q4H PRN IV pain Last administered on 16:38; Admin Dose 2 MG; Start 09/01/17 at 09:30 Procedures Procedures MRI lumbar doesn't show any central canal stenosis, subluxation or fracture. GRAVELY,HARJIT Mcdaniel MD Sep 01, 2017 19:11
--- NOTE | 2017-09-01 21:04 | RADRPT ---
Echocardiogram Report Patient Name: FRANKLIN HERNANDEZ Gender: Male Date: 1980 Study Date: 01-Sep-2017 Electrical Line Mechanic: JT Location: 2244 Ref. Physician: BRISA NEAL Quality: Good Procedures: Transthoracic echocardiogram with complete 2D, M-Mode, and doppler examination. Indications: Pre-op. 2D/M Mode Doppler Measurement Value Normal Ranges Measurement Value Normal Ranges AoR Diam MM 3.7 cm ADEEL Vmax 3.0 cm2 ACS MM 2.0 cm ADEEL VTI 3.0 cm2 LA/Ao MM 0.6 AV Peak Jose Guadalupe 1.0 m/sec LA Dimen MM 2.2 cm AV Peak PG 4.3 mmHg LVIDd 2D 4.7 3.5 - 5.6 cm LVOT Peak Jose Guadalupe 0.9 m/sec LVIDs 2D 3.1 2.1 - 4.1 cm LVOT Peak PG 3.0 mmHg LVPWd 2D 1.0 0.6 - 1.1 cm MV E Peak Jose Guadalupe 0.4 m/sec IVSd 2D 0.9 0.6 - 1.1 cm MV A Peak Jose Guadalupe 0.5 m/sec AoR Diam 2D 3.7 2.0 - 3.7 cm MV E/A 0.7 EDV 2D 100.0 cm3 MV Decel Time 169 msec ESV 2D 30.6 cm3 MV Decel Meigs 2 LVOT Diam 2.1 cm MV E/A 0.7 TR Peak Jose Guadalupe 2.6 m/sec TR Peak PG 27.0 mmHg Findings Left Ventricle: Normal left ventricular systolic function. Normal left ventricular cavity size. Normal left ventricular wall thickness. Ejection fraction is visually estimated at 60 %. Right Ventricle: Normal right ventricular size. Normal right ventricular systolic function. Left Atrium: The left atrium is normal in size. Right Atrium: The right atrium is normal in size. Mitral Valve: Trace mitral regurgitation. Aortic Valve: No significant aortic stenosis or insufficiency. Aortic cusps appear mildly calcified. Tricuspid Valve: Estimated peak PA systolic pressure 30 mmHg. There is mild tricuspid regurgitation. Pulmonic Valve: There is trace pulmonic regurgitation. Pericardium: Normal pericardium with no significant pericardial effusion. Aorta: There is mild aortic root dilation. IVC: Normal size and normal respiratory collapse consistent with normal right atrial pressure. Conclusions 1.Normal left ventricular systolic function. Normal left ventricular cavity size. Normal left ventricular wall thickness. Ejection fraction is visually estimated at 60 %. 2.Trace mitral regurgitation. 3.No significant aortic stenosis or insufficiency. Aortic cusps appear mildly calcified. 4.Estimated peak PA systolic pressure 30 mmHg. There is mild tricuspid regurgitation. 5.There is trace pulmonic regurgitation. Electronically Signed By: Donte De León 01-Sep-2017 21:03:37 -0700 Patient Name: FRANKLIN HERNANDEZ Study Date: 01-Sep-2017 [id number]
[2017-09-01 21:42] VITALS: BP 122/73; RESP 20
[2017-09-02] VITALS (11 sets, daily range): BP systolic 122–149; BP diastolic 67–85; PULSE 94–106; RESP 12–20
[2017-09-02] MEDS: DEXAMETHASONE 4 MG/ML 1 ML INJ IV SCH ×4 (00:03→17:33)
[2017-09-02] MEDS: morphine 2 MG INJ IV PRN ×2 (01:07→05:36)
[2017-09-02] MEDS: HEPARIN 5,000 UNIT/0.5 ML VIAL SC SCH ×3 (05:10→22:00)
[2017-09-02] MEDS: PANTOPRAZOLE (EC) 40 MG TAB PO SCH (05:10)
[2017-09-02 05:14] LABS: BASOPHILS % 0.1 % (0.0-2.0); HEMATOCRIT 42.2 % (42.0-52.0); HEMOGLOBIN 13.9 g/dl (14.0-18.0); LYMPHOCYTES # 0.7 10^3/ul (0.8-2.9); LYMPHOCYTES % 3.8 % (15.0-51.0); MEAN CORPUSCULAR HEMOGLOBIN 31.8 pg (29.0-33.0); MEAN CORPUSCULAR HGB CONC 32.9 g/dl (32.0-37.0); MEAN CORPUSCULAR VOLUME 96.6 fl (82.0-101.0); MEAN PLATELET VOLUME 11.7 fl (7.4-10.4); MONOCYTE # 1.1 10^3/ul (0.3-0.9); MONOCYTES % 6.4 % (0.0-11.0); NEUTROPHIL # 15.4 10^3/ul (1.6-7.5); NEUTROPHILS % 87.9 % (39.0-77.0); PLATELET COUNT 232 10^3/UL (140-415); RED BLOOD COUNT 4.37 10^6/ul (4.70-6.10); RED CELL DISTRIBUTION WIDTH 13.6 % (11.5-14.5); WHITE BLOOD COUNT 17.5 10^3/ul (4.8-10.8)
[2017-09-02 05:34] LABS: INR 1.03; PROTIME 13.5 Sec (12.2-14.2); PT RATIO 1.1
[2017-09-02] MEDS: VANCOMYCIN 1 GM in NS 250 ML IVPB SCH ×2 (05:35→12:06)
[2017-09-02 05:41] LABS: CALCIUM 9.1 mg/dl (8.4-10.2); CREATININE 0.73 mg/dl (0.61-1.24); POTASSIUM 4.5 mmol/L (3.5-5.1)
[2017-09-02] MEDS ORDERED: ACETAMINOPHEN 1000 MG/100 ML IVPB ONE (07:00)
[2017-09-02] MEDS: CEFEPIME 1GM/50 ML (PMX) 50 ML IVPB SCH (08:48)
[2017-09-02] MEDS: CYANOCOBALAMIN 1000 MCG INJ IM SCH (08:48)
[2017-09-02] MEDS ORDERED: MEPERIDINE 25 MG INJ IV PRN (14:00)
[2017-09-02] MEDS ORDERED: LABETALOL HCL 20MG INJ IV PRN (14:00)
[2017-09-02] MEDS ORDERED: EPHEDrine SULFATE 50 MG/5 ML SYG IV PRN (14:00)
[2017-09-02] MEDS ORDERED: DIPHENHYDRAMINE 50 MG INJ IV PRN (14:00)
[2017-09-02] MEDS ORDERED: hydrALAzine 20 MG INJ IV PRN (14:00)
[2017-09-02] MEDS ORDERED: METOCLOPRAMIDE 10 MG INJ IV PRN (14:00)
[2017-09-02] MEDS ORDERED: ONDANSETRON 4 MG INJ IV PRN ×2 (14:00→22:00)
[2017-09-02] MEDS ORDERED: FENTAnyl 50 MCG/ML VIAL IV PRN ×3 (14:00)
[2017-09-02] MEDS ORDERED: HYDROmorphONE (0.2 MG/ML) 10ML SYG IV PRN ×3 (14:00)
--- NOTE | 2017-09-02 14:44 | CONS ---
Date/Time of Note Date/Time of Note DATE: 09/02/17 TIME: 14:43 Consult Date/Type/Reason Admit Date/Time Aug 27, 2017 at 04:53 Initial Consult Date 08/27/17 Type of Consultation: ID Ordering Provider: HEIDI RASHEED SUPER[employer]OR [employer] Objective Vital Signs Date Time Temp Pulse Resp B/P Pulse Ox O2 Delivery O2 Flow Rate FiO2 09/02/17 07:47 98.4 96 17 122/80 94 08/30/17 08:00 Room Air Intake and Output 09/01/17 09/01/17 09/02/17 15:00 23:00 07:00 Intake Total 300 ml 1070 ml 830 ml Output Total 900 ml 800 ml Balance 300 ml 170 ml 30 ml Results/Medications Result Diagram: 09/02/17 04309/02/17436 Results 24 hrs Laboratory Tests Test 09/02/17 04:37 White Blood Count 17.5 H Red Blood Count 4.37 L Hemoglobin 13.9 L Hematocrit 42.2 Mean Corpuscular Volume 96.6 Mean Corpuscular Hemoglobin 31.8 Mean Corpuscular Hemoglobin Concent 32.9 Red Cell Distribution Width 13.6 Platelet Count 232 Mean Platelet Volume 11.7 H Neutrophils % 87.9 H Lymphocytes % 3.8 L Monocytes % 6.4 Eosinophils % 0.0 Basophils % 0.1 Nucleated Red Blood Cells % 0.0 Neutrophils # 15.4 H Lymphocytes # 0.7 L Monocytes # 1.1 H Eosinophils # 0.0 Basophils # 0.0 Nucleated Red Blood Cells # 0.0 Prothrombin Time 13.5 Prothrombin Time Ratio 1.1 INR International Normalized Ratio 1.03 Activated Partial Thromboplast Time 26.0 Sodium Level 141 Potassium Level 4.5 Chloride Level 109 Carbon Dioxide Level 27 Anion Gap 10 Blood Urea Nitrogen 21 H Creatinine 0.73 Glucose Level 162 Calcium Level 9.1 Medications Current Medications Ondansetron HCl (Zofran Inj) 4 mg Q6H PRN IV NAUSEA AND/OR VOMITING; Start 08/27/17 at 06:00 Acetaminophen (Tylenol Tab) 650 mg Q6H PRN PO PAIN LEVEL 1-3 OR FEVER Last administered on 08/27/17 21:04; Admin Dose 650 MG; Start 08/27/17 at 06:00 Pantoprazole (Protonix Tab) 40 mg DAILY@06 PO Last administered on 09/01/17 05:17; Admin Dose 40 MG; Start 08/27/17 at 06:00 Heparin Sodium (Porcine) (Heparin (5000 Units/0.5 ml)) 5,000 unit Q8 SC Last administered on 09/01/17 05:26; Admin Dose 5,000 UNIT; Start 08/27/17 at 06:00 Acetaminophen/ Hydrocodone Bitart ([place] (5/325)) 1 tab Q4H PRN PO Pain Last administered on 09/01/17 17:55; Admin Dose 1 TAB; Start 08/28/17 at 10:30 Dexamethasone 4 mg 4 mg Q6 IV Last administered on 09/02/17 12:06; Admin Dose 4 MG; Start 08/30/17 at 12:00 Cefepime HCl 50 ml @ 100 mls/hr Q12 IVPB Last administered on 09/02/17 08:48 ; Admin Dose 100 MLS/HR; Start 08/30/17 at 11:00 Vancomycin HCl (Vancocin) 250 ml @ 125 mls/hr Q8H IVPB Last administered on 12:06; Admin Dose 125 MLS/HR; Start 08/30/17 at 21:00 Cyanocobalamin (Vitamin B12 Inj) 1,000 mcg DAILY IM Last administered on 08:48; Admin Dose 1,000 MCG; Start 08/30/17 at 12:00 Morphine Sulfate (morphine) 2 mg Q4H PRN IV pain Last administered on 05:36; Admin Dose 2 MG; Start 09/01/17 at 09:30 Miscellaneous Information (*Rx Drug Level Order Reminder*) VANCO TROUGH @ 0, 400 ON ... ONCE ONCE XX ; Start 09/03/17 at 04:00; Stop 09/03/17 at 04:01 Assessment/Plan Chief Complaint/Hosp Course SUBJECTIVE: No acute events overnight. No fevers. Abx: Vanco, Cefepime PHYSICAL EXAMINATION: GENERAL: Chronically ill-appearing, middle-aged man who is in no distress. HEENT: Head atraumatic, normocephalic. Sclerae anicteric. Buccal mucosa dry. NECK: Supple. CHEST: Rise symmetrical. Breath sounds clear. HEART: S1, S2. ABDOMEN: Soft, bowel tones present. EXTREMITIES: Without cyanosis. ASSESSMENT: 1. Abnormal C-spine MRI with concern of septic versus inflammatory arthritis. 2. Leukocytosis==> on Decadron. 3. Status post ground level fall. 4. Questionable cholesteatoma on the right. 5. Thoracic stenosis and paraparesis==> NS on case 6. Hx cerebral palsy PLAN: The patient remains stable. Continue present care, pending spinal decompression, possible fusion. Consider PICC, will require 6 + weeks IV abx DW staff Problems: VIRIDIANA DESAI NP Sep 02, 2017 14:44
[2017-09-02] MEDS ORDERED: FENTAnyl 50 MCG/ML VIAL ONE (14:57)
[2017-09-02] MEDS ORDERED: ROCURONIUM 50 MG INJ ONE ×2 (14:57→17:06)
[2017-09-02] MEDS ORDERED: PROPOFOL 20 ML ONE (14:57)
[2017-09-02] MEDS ORDERED: MIDAZOLAM 1 MG/ML 2 ML INJ ONE ×2 (14:57→15:46)
[2017-09-02] MEDS ORDERED: GELATIN SIZE 100 SPONGE ONE (15:01)
[2017-09-02] MEDS ORDERED: THROMBIN 5000 UNIT VIAL ONE ×2 (15:01→20:51)
--- NOTE | 2017-09-02 15:09 | HPN ---
Date/Time of Note Date/Time of Note DATE: 09/02/17 TIME: 15:09 Interval H&P Admission Note Pt. seen H&P reviewed: No system changes HARJIT BANEGAS MD Sep 02, 2017 15:09
[2017-09-02] MEDS ORDERED: POLYMYXIN/BACITRACIN 1L IRRIG ONE (15:13)
[2017-09-02] MEDS ORDERED: BUPIVACAINE 0.5%/EPI (SDV) 30 ML INJ ONE (15:13)
[2017-09-02] MEDS ORDERED: LIDOCAINE 1% (MPF) 30 ML INJ ONE (15:13)
[2017-09-02] MEDS ORDERED: BUPIVACAINE 0.5% (SDV) 30 ML INJ ONE (15:13)
[2017-09-02] MEDS ORDERED: VANCOMYCIN 1 GM INJ ONE (15:13)
--- NOTE | 2017-09-02 16:04 | PN ---
Date/Time of Note Date/Time of Note DATE: 09/02/17 TIME: 16:01 Assessment/Plan VTE Prophylaxis VTE Prophylaxis Intervention: SCD's Lines/Catheters IV [facility] Type [facility] [place] Urinary Cath still in place: No Assessment/Plan Assessment/Plan 1. Ground-level fall with underlying suspect cerebral palsy. Patient reportedly had imaging done from outside facility that was negative for any acute findings. MRI of the brain did show possible mastoiditis as well as right sigmoid sinus suspicious for thrombus. . However recent imaging done on August 29, 2017 showed: CT scan of temporal bones with contrast showed no evidence of mastoiditis and CTA of the brain showed no dural sinus thrombosis. 2. Frequent falls . Spinal MRI with thoracic spinal stenosis. On dexamethasone at this time. Tentative plan for thoracic spinal surgery. 3. Right knee pain. No fracture seen for right knee imaging. Continue with analgesics Disposition plan: Antibiotics per ID for possible septic arthritis on cervical spinal area. Plan for thoracic spine surgical intervention on today SCD for DVT prophylaxis . Subjective 24 Hr Interval Summary Free Text/Dictation plan for Thoracic spine surgery, BP stable, No back pain Exam/Review of Systems Vital Signs Vitals Vital Signs Date Time Temp Pulse Resp B/P Pulse Ox O2 Delivery O2 Flow Rate FiO2 09/02/17 07:47 98.4 96 17 122/80 94 08/30/17 08:00 Room Air Intake and Output 09/01/17 09/01/17 09/02/17 15:00 23:00 07:00 Intake Total 300 ml 1070 ml 830 ml Output Total 900 ml 800 ml Balance 300 ml 170 ml 30 ml Exam General: No signs or symptoms of distress noted at this time Cardiac: S1, S2 auscultated, regular rhythm and rate Pulmonary: No coarse rhonchi or breathing auscultated GI: Abdomen soft nontender nondistended, bowel sounds active Extremities: No swelling noted on right knee Skin: Clean dry and intact Neurologic: alert to self and place Results Result Diagram: 09/02/17 0437 09/02/17 0437 Results 24 hrs Laboratory Tests Test 09/02/17 04:37 White Blood Count 17.5 H Red Blood Count 4.37 L Hemoglobin 13.9 L Hematocrit 42.2 Mean Corpuscular Volume 96.6 Mean Corpuscular Hemoglobin 31.8 Mean Corpuscular Hemoglobin Concent 32.9 Red Cell Distribution Width 13.6 Platelet Count 232 Mean Platelet Volume 11.7 H Neutrophils % 87.9 H Lymphocytes % 3.8 L Monocytes % 6.4 Eosinophils % 0.0 Basophils % 0.1 Nucleated Red Blood Cells % 0.0 Neutrophils # 15.4 H Lymphocytes # 0.7 L Monocytes # 1.1 H Eosinophils # 0.0 Basophils # 0.0 Nucleated Red Blood Cells # 0.0 Prothrombin Time 13.5 Prothrombin Time Ratio 1.1 INR International Normalized Ratio 1.03 Activated Partial Thromboplast Time 26.0 Sodium Level 141 Potassium Level 4.5 Chloride Level 109 Carbon Dioxide Level 27 Anion Gap 10 Blood Urea Nitrogen 21 H Creatinine 0.73 Glucose Level 162 Calcium Level 9.1 Medications Medications Current Medications Ondansetron HCl (Zofran Inj) 4 mg Q6H PRN IV NAUSEA AND/OR VOMITING; Start 08/27/17 at 06:00 Acetaminophen (Tylenol Tab) 650 mg Q6H PRN PO PAIN LEVEL 1-3 OR FEVER Last administered on 08/27/17 21:04; Admin Dose 650 MG; Start 08/27/17 at 06:00 Pantoprazole (Protonix Tab) 40 mg DAILY@06 PO Last administered on 09/01/17 05:17; Admin Dose 40 MG; Start 08/27/17 at 06:00 Heparin Sodium (Porcine) (Heparin (5000 Units/0.5 ml)) 5,000 unit Q8 SC Last administered on 09/01/17 05:26; Admin Dose 5,000 UNIT; Start 08/27/17 at 06:00 Acetaminophen/ Hydrocodone Bitart ([place] (5/325)) 1 tab Q4H PRN PO Pain Last administered on 09/01/17 17:55; Admin Dose 1 TAB; Start 08/28/17 at 10:30 Dexamethasone 4 mg 4 mg Q6 IV Last administered on 09/02/17 12:06; Admin Dose 4 MG; Start 08/30/17 at 12:00 Cefepime HCl 50 ml @ 100 mls/hr Q12 IVPB Last administered on 09/02/17 08:48 ; Admin Dose 100 MLS/HR; Start 08/30/17 at 11:00 Vancomycin HCl (Vancocin) 250 ml @ 125 mls/hr Q8H IVPB Last administered on 12:06; Admin Dose 125 MLS/HR; Start 08/30/17 at 21:00 Cyanocobalamin (Vitamin B12 Inj) 1,000 mcg DAILY IM Last administered on 08:48; Admin Dose 1,000 MCG; Start 08/30/17 at 12:00 Morphine Sulfate (morphine) 2 mg Q4H PRN IV pain Last administered on 05:36; Admin Dose 2 MG; Start 09/01/17 at 09:30 Miscellaneous Information (*Rx Drug Level Order Reminder*) VANCO TROUGH @ 0, 400 ON ... ONCE ONCE XX ; Start 09/03/17 at 04:00; Stop 09/03/17 at 04:01 LORENA GONZALEZ MD Sep 02, 2017 16:04
--- NOTE | 2017-09-02 16:05 | RADRPT ---
Vent Rate: 94 bpm RR Interval: 0 msec ID Interval: 166 msec QRS Duration: 80 msec QT Interval: 312 msec QTC Interval: 390 msec P-R-T [place]: 52 - 42 - 59 degrees Normal sinus rhythm Normal ECG Electronically Signed By: Mj Guzman [id number]
[2017-09-02] MEDS ORDERED: PHENYLephrine (100 MCG/ML) 5ML SYG ONE ×2 (16:08→19:12)
[2017-09-02] MEDS ORDERED: HYDROmorphONE 2 MG/ML SYG ONE (16:57)
[2017-09-02] MEDS ORDERED: HYDROCORTISONE 100 MG INJ ONE (16:58)
[2017-09-02] MEDS ORDERED: LABETALOL HCL 20MG INJ ONE (17:04)
[2017-09-02] MEDS ORDERED: METOCLOPRAMIDE 10 MG INJ ONE (17:07)
[2017-09-02] MEDS ORDERED: DEXAMETHASONE 4 MG/ML 1 ML INJ ONE (17:07)
[2017-09-02] MEDS ORDERED: ONDANSETRON 4 MG INJ ONE (17:07)
[2017-09-02] MEDS ORDERED: SUGAMMADEX SODIUM 200 MG/2 ML VIAL IV ONE (21:27)
[2017-09-02] MEDS ORDERED: ZOLPIDEM 5 MG TAB PO PRN (22:00)
[2017-09-02] MEDS ORDERED: CEPASTAT LOZENGE MT PRN (22:00)
[2017-09-02] MEDS ORDERED: AL HYDROX/MG HYDROX/SIMETH 30 ML CUP PO PRN (22:00)
[2017-09-02] MEDS ORDERED: NALOXONE (0.4 MG/ML) INJ IV PRN (22:00)
[2017-09-02] MEDS ORDERED: DIPHENHYDRAMINE 50 MG CAP PO PRN (22:00)
[2017-09-02] MEDS ORDERED: HYDROCODONE/APAP (5/325) TAB PO PRN (22:00)
[2017-09-02] MEDS ORDERED: BETHANECHOL 25 MG TAB PO PRN (22:00)
--- NOTE | 2017-09-02 22:10 | OPR ---
Date/Time of Note Date/Time of Note DATE: 09/02/17 TIME: 22:05 Operative Report Preoperative Diagnosis Thoracic stenosis with myelopathy Postoperative Diagnosis Thoracic stenosis with myelopathy Operation/Procedure Performed 1. T9-T11 laminectomy. 2. T9-T11 arthrodesis. 3. T9-T11 bilateral pedicle screw instrumentation. 4. use of operative microscope fro intraoperative microdissection. 5. frameless computerize stereotactic guidance. Surgeon see signature line Javascript Engineer none Anesthesia Type: general Estimated Blood Loss: 150 - 200 ml's Transfusion none Specimen none Grafts/Implants none Tubes/Drains 1 subfascial CHELLE drain Complications none Pt Condition Post Procedure: stable Disposition: PACU Indications thoracic myelopathy/ paraparesis Procedure Description see dictated note HARJIT BANEGAS MD Sep 02, 2017 22:10
[2017-09-02] MEDS: morphine 1 MG/ML 30 ML (PCA) IV SCH (23:18)
[2017-09-03] VITALS (8 sets, daily range): BP systolic 116–159; BP diastolic 68–95; PULSE 74–100; RESP 16–20
[2017-09-03] MEDS: CEFEPIME 1GM/50 ML (PMX) 50 ML IVPB SCH ×3 (00:16→20:28)
[2017-09-03] MEDS: SOD CHLORIDE 0.45% 1,000 ML IV SCH ×3 (00:43→18:11)
[2017-09-03] MEDS: VANCOMYCIN 1 GM in NS 250 ML IVPB SCH ×3 (00:47→17:05)
[2017-09-03] MEDS: DEXAMETHASONE 4 MG/ML 1 ML INJ IV SCH ×3 (02:21→20:28)
[2017-09-03 05:34] LABS: BASOPHILS % 0.1 % (0.0-2.0); HEMATOCRIT 35.2 % (42.0-52.0); HEMOGLOBIN 11.5 g/dl (14.0-18.0); LYMPHOCYTES # 0.6 10^3/ul (0.8-2.9); LYMPHOCYTES % 4.7 % (15.0-51.0); MEAN CORPUSCULAR HEMOGLOBIN 31.4 pg (29.0-33.0); MEAN CORPUSCULAR HGB CONC 32.7 g/dl (32.0-37.0); MEAN CORPUSCULAR VOLUME 96.2 fl (82.0-101.0); MEAN PLATELET VOLUME 11.7 fl (7.4-10.4); MONOCYTE # 1.4 10^3/ul (0.3-0.9); NEUTROPHIL # 11.2 10^3/ul (1.6-7.5); NEUTROPHILS % 82.8 % (39.0-77.0); NUCLEATED RED BLOOD CELLS% 0.1 /100WBC (0.0-0.0); PLATELET COUNT 205 10^3/UL (140-415); RED BLOOD COUNT 3.66 10^6/ul (4.70-6.10); RED CELL DISTRIBUTION WIDTH 14.5 % (11.5-14.5); WHITE BLOOD COUNT 13.5 10^3/ul (4.8-10.8)
[2017-09-03 05:39] LABS: HEMATOCRIT 34.7 % (42.0-52.0); HEMOGLOBIN 11.6 g/dl (14.0-18.0)
[2017-09-03 06:24] LABS: CALCIUM 8.1 mg/dl (8.4-10.2); CREATININE 0.65 mg/dl (0.61-1.24); POTASSIUM 4.2 mmol/L (3.5-5.1)
[2017-09-03] MEDS: PANTOPRAZOLE (EC) 40 MG TAB PO SCH (06:59)
[2017-09-03] MEDS: morphine 1 MG/ML 30 ML (PCA) IV SCH (07:02)
--- NOTE | 2017-09-03 08:43 | PN ---
Date/Time of Note Date/Time of Note DATE: 09/03/17 TIME: 08:36 Assessment/Plan Lines/Catheters IV C[facility]ter Type (from [facility]): Peripheral IV [place] in Place (from [facility]): No Assessment/Plan Chief Complaint/Hosp Course thoracic stenosis and paraparesis. POD #1 s/p T9-T11 decompression and fusion. 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 D/C [place]. PT. UP when brace arrives. Luis Almazan. Problems: Subjective 24 Hr Interval Summary Patient complains of back pain. States that he feel unchanged- denies increased strength or more weakness in his legs. No other complaints. Exam/Review of Systems Vital Signs Vitals Vital Signs Date Time Temp Pulse Resp B/P Pulse Ox O2 Delivery O2 Flow Rate FiO2 09/03/17 08:13 98.5 86 20 130/95 97 09/03/17 04:00 Nasal Cannula 09/03/17 02:30 2.0 Intake and Output 09/02/17 09/02/17 09/03/17 15:00 23:00 07:00 Intake Total 550 ml 3000 ml 790 ml Output Total 1480 ml 1200 ml Balance 550 ml 1520 ml -410 ml Exam Constitutional: alert Neurological: other (patient non-complaints- difficult to exam as variably moves LE to command. Still left slightly weaker than rigth escpecially proximally.) Skin: other (incision C/D/I, drain in place) Results Result Diagram: 09/03/17 0418 09/03/17 0418 HARJIT BANEGAS MD Sep 03, 2017 08:43
[2017-09-03] MEDS: CYANOCOBALAMIN 1000 MCG INJ IM SCH (08:56)
[2017-09-03] MEDS: DOCUSATE SODIUM 100 MG CAP PO SCH ×2 (08:57→20:28)
[2017-09-03] MEDS: FERROUS SULFATE (EC) 325 MG TAB PO SCH ×3 (08:57→20:28)
[2017-09-03] MEDS: DIAZEPAM 5 MG TAB PO PRN ×2 (09:04→23:10)
--- NOTE | 2017-09-03 09:18 | RADRPT ---
PROCEDURE: Intraoperative fluoroscopy CLINICAL INDICATION: Back pain. Intraoperative localization for T9-T11 thoracic laminectomy and fu celia TECHNIQUE: 32.4 seconds of fluoroscopy time was utilized. 3 Images are submitted for interpretation . COMPARISON: August 30, 2017 FINDINGS: Successful T9-T11 thoracic laminectomy and fusion was performed. 32.4 seconds of fluoroscopy time u sed. Anatomic alignment. Hardware is intact. Postsurgical changes are noted. IMPRESSION: Successful T9-T11 thoracic laminectomy and fusion. 32.4 seconds of fluoroscopy time used. Anatomic a lignment. Postsurgical changes. Hardware is intact. RPTAT: EE .Whitney Palma MD, MD Date Time Electronically viewed and signed by .Whitney Palma MD, on 09/03/2017 09:18 .F/
--- NOTE | 2017-09-03 12:45 | OPR ---
DATE OF OPERATION: 09/02/2017 PREOPERATIVE DIAGNOSIS: Thoracic stenosis with myelopathy. POSTOPERATIVE DIAGNOSIS: Thoracic stenosis with myelopathy. PROCEDURES: 1. T9 and T11 laminectomy. 2. T9 at T11, arthrodesis. 3. T9 to T11 bilateral pedicle screw instrumentation. 4. Use of operative microscope for intraoperative microdissection. 5. Frameless computerized stereotactic guidance. SURGEON: Dr. Harjit Banegas. SPRAY I PAINTER: None. ANESTHESIA: General endotracheal. ESTIMATED BLOOD LOSS: 150 mL. SPECIMEN COLLECTED: None. GRAFTS IMPLANTS: Orthofix pedicle screws. DRAINS PLACED: One subfascial CHELLE. COMPLICATIONS: None. FINDINGS: Spondylotic stenosis. DISPOSITION: Recovery. INDICATIONS: The patient is a 37-year-old male who has developmental delay. He has had 3 months of progressive lower extremity weakness with the sudden onset of acute paraparesis after a fall in the shower 4 days prior to admission. Workup ultimately revealed thoracic stenosis with cord signal change most significant at T9-T10 and T10-T11 levels. Although patient had significant paresis for an extended period of time, it was felt that reasonable to decompress the patient to allow for the best opportunity for recovery. The risks, benefits and alternatives were discussed with the patient and his mother who elected for surgery. PROCEDURE: The patient was brought to the OR. He was sedated, intubated, and anesthesia was successfully induced. A Montalvo catheter was placed. Sequential compression devices were placed. The patient was receiving broad spectrum antibiotics already. The patient was monitored with SSEPs and upper and lower extremities and EMGs and baseline potentials established. The patient was placed in the prone position on the Bakari table. Pressure points were checked for appropriate padding. Fluoroscopy was used to localize the initial incision. After surgical time-out, the procedure commenced. The patient was sterilely prepped and draped. After surgical time-out, the procedure commenced. Marcaine 0.5% with epinephrine with 5 mL was injected subcutaneous tissue to the midline incision. A 10 blade knife was used to make an incision over the spinous processes from T8 down to the T12 level. Bovie electrocautery was used to dissect through the subcutaneous tissue down to the spinous process. Then subperiosteal dissection down the spinous process and lamina to the transverse process was performed. Self-retaining retractors were placed. AP and lateral fluoroscopic images were used to localize the T9, T10 and T11 levels. It should be noted that the patient did have segmental abnormalities in his spine. I had counted that the patient had 11 rib bearing thoracic vertebrae and either had a hypoplastic T12 or 4 lumbar vertebrae with a sacralized lumbar vertebrae. I discussed with the radiologist, Dr. Olivares who agreed that the patient appeared to have 11 significant rib bearing vertebrae. Based upon these findings which Dr. Olivares had correlated with the MRI, the lowest rib bearing vertebrae was used to localize the thoracic levels. After this was performed, the BrainLAB frame was placed in the spinous process of T11 and the BrainLAB registered 0.7 mm accuracy. Pedicle screws were then placed in the T9-T10 pedicles bilaterally in the following fashion: The BrainLAB probe was used to localize the starting point above the pedicle. The sample collector hole was made with a high-speed drill. Then a guided 30 mm drill guided by BrainLAB was used to cannulate the pedicle. The pedicle hole was then probed and no breach was found. Then, a 4.5 tap was used to cannulate the pedicle. The hole was then probed again and no evidence of breach is found the BrainLAB probe used to demonstrate the appropriate trajectory. Then, a 5.5 35 screw was screwed into the vertebral body. This was performed at T9-T10 levels. Fluoroscopic image showed good placement. The BrainLAB frame was then removed and placed at T10 vertebral body and reregistered to 0.5 mm accuracy. Then, T11 screws were placed in the same fashion was 5.5 40 screws at this level. All screws had excellent purchase. There was no evidence of break during placement. Once the screws had been placed the microscope was brought in for intraoperative dissection. The spinous processes were removed and harvested for bone graft. A laminectomy was performed at the anterior aspect of T9, T10 and superior aspect of T11. The laminectomy was performed carefully and the image guidance had been used to localize the predominant compression, which was from the right aspect of the facet joint where there appeared to be severe spondylosis and osteophytic growth over the facet joint. The patient also had some scoliotic curvature which was likely to cause some of the osteophytic growth on the right side. This high speed drill was used to remove the bone by going laterally and into the facet to decompress the bone on top of the spinal cord such that it could be lifted off without drilling on top of the spinal cord. A wide laminectomy was performed and the thecal sac appeared to be significantly decompressed. Once the laminectomy was completed, the microscope was removed and the screw heads were then placed on the screws and then 80 mm britt on the left and a 75 mm curved on the right were placed into the polyaxial screw heads. The patient appeared to be relatively straight and given that this was in the coronal plane there was no significant alteration in the patient's alignment. The screw caps were then placed and final tightening performed on all screws. The lateral bone on the thoracic spine was decorticated and then autograft and allograft were mixed together and placed for bone graft of T9 to T11. A subfascial drain was placed in the subfascial space. The self-retaining retractors were removed. Hemostasis achieved with bipolar electrocautery. The incision was closed with interrupted 0 Vicryl sutures in the fascia, interrupted 2-0 Vicryl sutures in the subcutaneous tissue, interrupted 3-0 Vicryl sutures and subcuticular layer with a running 4-0 subcuticular stitch. Dermabond was placed in the incision, allowed to dry, and a sterile dressing applied. The patient was taken off the table, extubated, and taken to recovery. Sponge, needle and cottonoid count were reported correct at end of case. Electrophysiologic monitoring remained stable throughout the case. Dictated By: HARJIT BANEGAS MD, LG/YOU Conf#: [id number] DID#: [id number] CITLALLI
[2017-09-03] MEDS: HYDROCODONE/APAP (5/325) TAB PO PRN ×3 (13:11→21:52)
[2017-09-03] MEDS ORDERED: LIDOCAINE 1% (MPF) 5 ML VIAL SC ONE ×2 (15:00→18:30)
--- NOTE | 2017-09-03 15:54 | CONS ---
Date/Time of Note Date/Time of Note DATE: 09/03/17 TIME: 15:45 Assessment/Plan Assessment/Plan Chief Complaint/Hosp Course ID PROGRESS NOTE CURRENT ABX: DAY # Vanco IV + Cefepime 24H INTERVAL SUMMARY * No fevers, VSS, orders for PTx noted, DC planning in process, weaning Decadron * POD #1 => DATE OF OPERATION: 09/02/2017 PRE/POST OPERATIVE DIAGNOSIS: Thoracic stenosis with myelopathy. * PROCEDURES: * 1. T9 and T11 laminectomy. * 2. T9 at T11, arthrodesis. * 3. T9 to T11 bilateral pedicle screw instrumentation. * 4. Use of operative microscope for intraoperative microdissection. * 5. Frameless computerized stereotactic guidance. Physical Exam Physical Exam Constitutional: VSS, NAD HEENT: Unremarkable Neck: Supple, full ROM Respiratory: Equal chest rise bilaterally, without dyspnea on observation Cardiovascular: nl pulse Gastrointestinal: Soft, NT Extremities: Warm Neurological: Lethargic ID ASSESSMENT 37 yo M w/PMHx Cerebral Palsy admit with: 1. Abnormal C-spine MRI with concern of septic versus inflammatory arthritis. 2. Leukocytosis==> on Decadron. 3. Status post ground level fall. 4 Thoracic stenosis and paraparesis==> NS on case * POD #1 => 09/02/2017: Decompression T9-T11 spine surgery ABX ALLERGIES: None to ABX CURRENT ABX: DAY # =>Vanco IV + Cefepime ID RECOMMENDATIONS 1. Per ID colleague note: needs 6 weeks ABX for concern C-spine MRI findings of septic vs inflammatory arthritis . Problems: Consultation Date/Type/Reason Admit Date/Time Aug 27, 2017 at 04:53 Initial Consult Date 08/27/17 Type of Consultation: ID Referring Provider: HEIDI RASHEED DIVER ASSISTANT Exam/Review of Systems Vital Signs Vitals Vital Signs Date Time Temp Pulse Resp B/P Pulse Ox O2 Delivery O2 Flow Rate FiO2 09/03/17 08:13 98.5 86 20 130/95 97 09/03/17 04:00 Nasal Cannula 09/03/17 02:30 2.0 Intake and Output 09/02/17 09/02/17 09/03/17 15:00 23:00 07:00 Intake Total 550 ml 3000 ml 790 ml Output Total 1480 ml 1200 ml Balance 550 ml 1520 ml -410 ml Results Result Diagram: 09/03/17 0418 09/03/17 0418 Results 24 hrs Laboratory Tests Test 09/03/17 04:18 White Blood Count 13.5 #H Red Blood Count 3.66 L Hemoglobin 11.6 L Hematocrit 34.7 L Mean Corpuscular Volume 96.2 Mean Corpuscular Hemoglobin 31.4 Mean Corpuscular Hemoglobin Concent 32.7 Red Cell Distribution Width 14.5 Platelet Count 205 Mean Platelet Volume 11.7 H Neutrophils % 82.8 H Lymphocytes % 4.7 L Monocytes % 10.0 Eosinophils % 0.0 Basophils % 0.1 Nucleated Red Blood Cells % 0.1 H Neutrophils # 11.2 H Lymphocytes # 0.6 L Monocytes # 1.4 H Eosinophils # 0.0 Basophils # 0.0 Nucleated Red Blood Cells # 0.0 Sodium Level 142 Potassium Level 4.2 Chloride Level 108 Carbon Dioxide Level 25 Anion Gap 13 Blood Urea Nitrogen 17 Creatinine 0.65 Glucose Level 98 # Calcium Level 8.1 L Vancomycin Level Trough 22.8 *H Medications Medications Current Medications Ondansetron HCl (Zofran Inj) 4 mg Q6H PRN IV NAUSEA AND/OR VOMITING; Start 08/27/17 at 06:00 Acetaminophen (Tylenol Tab) 650 mg Q6H PRN PO PAIN LEVEL 1-3 OR FEVER Last administered on 08/27/17 21:04; Admin Dose 650 MG; Start 08/27/17 at 06:00 Pantoprazole (Protonix Tab) 40 mg DAILY@06 PO Last administered on 09/03/17 06:59; Admin Dose 40 MG; Start 08/27/17 at 06:00 Heparin Sodium (Porcine) (Heparin (5000 Units/0.5 ml)) 5,000 unit Q8 SC Last administered on 09/01/17 05:26; Admin Dose 5,000 UNIT; Start 08/27/17 at 06:00 ; Status Future Hold Acetaminophen/ Hydrocodone Bitart 1 tab 1 tab Q4H PRN PO Pain Last administered on 09/01/17 17:55; Admin Dose 1 TAB; Start 08/28/17 at 10:30 Cefepime HCl (Maxipime 1gm/50 ml (Pmx)) 50 ml @ 100 mls/hr Q12 IVPB Last administered on 09/03/17 10:22; Admin Dose 100 MLS/HR; Start 08/30/17 at 11: 00 Cyanocobalamin (Vitamin B12 Inj) 1,000 mcg DAILY IM Last administered on 08:56; Admin Dose 1,000 MCG; Start 08/30/17 at 12:00 Morphine Sulfate 2 mg 2 mg Q4H PRN IV pain Last administered on 09/02/17 05: 36; Admin Dose 2 MG; Start 09/01/17 at 09:30 Sodium Chloride (1/2 NS) 1,000 ml @ 100 mls/hr Q10H IV Last administered on 00:43; Admin Dose 100 MLS/HR; Start 09/02/17 at 21:56 Acetaminophen/ Hydrocodone Bitart ([place] (5/325)) 1 tab Q4H PRN PO PAIN LEVEL 1 -5; Start 09/02/17 at 22:00 Acetaminophen/ Hydrocodone Bitart ([place] (5/325)) 2 tab Q4H PRN PO PAIN LEVEL 6 -10 Last administered on 09/03/17 13:11; Admin Dose 2 TAB; Start 09/02/17 at 22:00 Zolpidem Tartrate (Ambien) 5 mg HS PRN PO INSOMNIA; Start 09/02/17 at 22:00 Ondansetron HCl (Zofran Inj) 4 mg Q6H PRN IV NAUSEA AND/OR VOMITING; Start at 22:00 Al Hydrox/Mg Hydrox/Simethicone (Mag-Al Plus) 15 ml Q4H PRN PO CONSTIPATION; Start 09/02/17 at 22:00 Docusate Sodium (Colace) 100 mg BID PO Last administered on 09/03/17 08:57; Admin Dose 100 MG; Start 09/03/17 at 09:00 Ferrous Sulfate (Ferrous Sulfate (Ec)) 325 mg TID PO Last administered on 09/03 13:10; Admin Dose 325 MG; Start 09/03/17 at 09:00 Diazepam (Valium) 5 mg Q4H PRN PO MUSCLE SPASMS Last administered on 09:04; Admin Dose 5 MG; Start 09/02/17 at 22:00 Phenol (Cepastat Lozenge) 1 lozenge PRN PRN MT SORE THROAT; Start 09/02/17 at 22:00 Bethanechol Chloride (Urecholine) 25 mg PRN PRN PO UNABLE TO VOID Last administered on 09/03/17 08:57; Admin Dose 25 MG; Start 09/02/17 at 22:00 Diphenhydramine HCl (Benadryl) 50 mg Q6H PRN PO PRURITUS; Start 09/02/17 at 22 :00 Morphine Sulfate (morphine) 1 mg Q4PCA IV Last administered on 09/03/17 07:02 ; Admin Dose 30 MG; Start 09/02/17 at 22:00 Naloxone HCl 0.2 mg 0.2 mg Q2M PRN IV RR 8 BREATHS/MIN OR LESS; Start at 22:00 Vancomycin HCl (Vancocin) 250 ml @ 125 mls/hr Q8H IVPB Last administered on 08:56; Admin Dose 125 MLS/HR; Start 09/03/17 at 09:00 Miscellaneous Information (*Rx Drug Level Order Reminder*) VANCOMYCIN TROUGH AT 0000 ONCE ONCE XX ; Start 09/04/17 at 00:00; Stop 09/04/17 at 00:01 Dexamethasone (Decadron) 2 mg BID IV ; Start 09/03/17 at 21:00 NICOLLE CORDOBA NP Sep 03, 2017 15:54
[2017-09-03] MEDS ORDERED: DEXAMETHASONE 1 MG TAB PO SCH (21:00)
[2017-09-04] MEDS: VANCOMYCIN 1 GM in NS 250 ML IVPB SCH (02:35)
[2017-09-04 02:58] VITALS: BP 141/85; RESP 20
[2017-09-04] MEDS: SOD CHLORIDE 0.45% 1,000 ML IV SCH ×3 (03:56→23:56)
[2017-09-04] MEDS: PANTOPRAZOLE (EC) 40 MG TAB PO SCH (05:54)
[2017-09-04 08:04] VITALS: BP 120/74; RESP 22
[2017-09-04] MEDS: DOCUSATE SODIUM 100 MG CAP PO SCH ×2 (09:15→21:37)
[2017-09-04] MEDS: FERROUS SULFATE (EC) 325 MG TAB PO SCH ×3 (09:15→21:37)
[2017-09-04] MEDS: CEFEPIME 1GM/50 ML (PMX) 50 ML IVPB SCH ×2 (09:16→21:37)
[2017-09-04] MEDS: DEXAMETHASONE 4 MG/ML 1 ML INJ IV SCH ×2 (09:16→21:35)
[2017-09-04] MEDS: CYANOCOBALAMIN 1000 MCG INJ IM SCH (09:16)
[2017-09-04] MEDS: morphine 2 MG INJ IV PRN ×3 (09:19→19:04)
[2017-09-04] MEDS: VANCOMYCIN 1.25 GM in SOD CHLORIDE 0.9% 250 ML IVPB SCH ×3 (10:00→18:24)
[2017-09-04] MEDS: HYDROCODONE/APAP (5/325) TAB PO PRN (10:05)
--- NOTE | 2017-09-04 10:12 | PN ---
Date/Time of Note Date/Time of Note DATE: 09/04/17 TIME: 10:06 Assessment/Plan Lines/Catheters IV Catheter Type (from [facility]): Peripheral IV Montalvo in Place (from [facility]): No Assessment/Plan Chief Complaint/Hosp Course thoracic stenosis and paraparesis. POD #2 s/p T9-T11 decompression and fusion. Neuro exam difficult to determine as not too complaint based due to developmental delay. pain control- will give IV tylenol, muscle relaxants. Weening of steroids. has brace, PT. Will get CT Thoracic spine. Problems: Subjective 24 Hr Interval Summary Patient c/o significant low back pain/incisional pain. Denies LE radiating pain or numbness or tingling. Report that his leg strength might be "a little bit" better. Exam/Review of Systems Vital Signs Vitals Vital Signs Date Time Temp Pulse Resp B/P Pulse Ox O2 Delivery O2 Flow Rate FiO2 09/04/17 08:04 97.5 94 22 120/74 97 09/03/17 04:00 Nasal Cannula 09/03/17 02:30 2.0 Intake and Output 09/03/17 09/03/17 09/04/17 15:00 23:00 07:00 Intake Total 300 ml 1450 ml 1650 ml Output Total 90 ml 1135 ml 1500 ml Balance 210 ml 315 ml 150 ml Exam Constitutional: alert Head: normocephalic Neurological: MANGAN[employer] HEATER II-XII intact, other (bilateral LE paresis. Difficult exam, doesn't readily move legs apparently due to pain because at times would follwo and wiggle toes and extend knees. Patient does have clonus and hypperreflexia at the patella. UE strength normal.) Skin: other (incision C/D/I. Drain D/C's.) Results Result Diagram: 09/03/17 0418 09/03/17 0418 HARJIT BANEGAS MD Sep 04, 2017 10:12
--- NOTE | 2017-09-04 11:31 | PN ---
Date/Time of Note Date/Time of Note LATE ENTRY DATE: 09/03/17 Assessment/Plan VTE Prophylaxis VTE Prophylaxis Intervention: SCD's Lines/Catheters IV Catheter Type (from Nrs): Peripheral IV Urinary Cath still in place: No Assessment/Plan Chief Complaint/Hosp Course Assessment and plan 1. Ground-level fall with underlying suspect cerebral palsy. Patient reportedly had imaging done from outside facility that was negative for any acute findings. MRI of the brain did show possible mastoiditis as well as right sigmoid sinus suspicious for thrombus. . However recent imaging done on August 29, 2017 showed: CT scan of temporal bones with contrast showed no evidence of mastoiditis and CTA of the brain showed no dural sinus thrombosis. Continue with neurologist recommendation 2. Frequent falls . Spinal MRI with thoracic spinal stenosis. Neurosurgeon is following. patient status post T9 and T11 laminectomy, T9 and T11 arthrodesis, T9-T11 bilateral pedicle screw instrumentation. Continue with her surgeon recommended agents. Plan for brace placement and physical therapy 3. Right knee pain. No fracture seen for right knee imaging. Continue with analgesics Disposition plan: Continue antibiotics. Tentative plan for further thoracic spine imaging. Plan physical therapy. Will follow up. Continue in-house monitoring for now. Discussed plan of care with Dr. Rice Problems: Subjective 24 Hr Interval Summary Free Text/Dictation slightly confused. no reports of pain today Exam/Review of Systems Vital Signs Vitals Vital Signs Date Time Temp Pulse Resp B/P Pulse Ox O2 Delivery O2 Flow Rate FiO2 09/04/17 08:04 97.5 94 22 120/74 97 09/03/17 04:00 Nasal Cannula 09/03/17 02:30 2.0 Intake and Output 09/03/17 09/03/17 09/04/17 15:00 23:00 07:00 Intake Total 300 ml 1450 ml 1650 ml Output Total 90 ml 1135 ml 1500 ml Balance 210 ml 315 ml 150 ml Exam General:slightly confused. no s/s/ of distress Eyes: pupils equal round, Anicteric sclera Neck: Supple nontender, no JVD Cardiac: S1, S2 auscultated, regular rhythm and rate Pulmonary: No coarse rhonchi or breathing auscultated GI: Abdomen soft nontender nondistended, bowel sounds active Extremities: No swelling noted on right knee Skin: Clean dry and intact Neurologic: alert to self and place Results Result Diagram: 09/03/17 0418 09/03/17 0418 Results 24 hrs Laboratory Tests Test 09/04/17 00:59 Vancomycin Level Trough 11.2 Medications Medications Current Medications Ondansetron HCl (Zofran Inj) 4 mg Q6H PRN IV NAUSEA AND/OR VOMITING; Start 08/27/17 at 06:00 Acetaminophen (Tylenol Tab) 650 mg Q6H PRN PO PAIN LEVEL 1-3 OR FEVER Last administered on 08/27/17 21:04; Admin Dose 650 MG; Start 08/27/17 at 06:00; Status Future Hold Pantoprazole (Protonix Tab) 40 mg DAILY@06 PO Last administered on 09/04/17 05:54; Admin Dose 40 MG; Start 08/27/17 at 06:00 Heparin Sodium (Porcine) (Heparin (5000 Units/0.5 ml)) 5,000 unit Q8 SC Last administered on 09/01/17 05:26; Admin Dose 5,000 UNIT; Start 08/27/17 at 06:00 ; Status Future Hold Acetaminophen/ Hydrocodone Bitart 1 tab 1 tab Q4H PRN PO Pain Last administered on 09/01/17 17:55; Admin Dose 1 TAB; Start 08/28/17 at 10:30; Status Future Hold Cefepime HCl (Maxipime 1gm/50 ml (Pmx)) 50 ml @ 100 mls/hr Q12 IVPB Last administered on 09/04/17 09:16; Admin Dose 100 MLS/HR; Start 08/30/17 at 11: 00 Cyanocobalamin (Vitamin B12 Inj) 1,000 mcg DAILY IM Last administered on 09:16; Admin Dose 1,000 MCG; Start 08/30/17 at 12:00 Morphine Sulfate 2 mg 2 mg Q4H PRN IV pain Last administered on 09/04/17 09: 19; Admin Dose 2 MG; Start 09/01/17 at 09:30 Sodium Chloride (1/2 NS) 1,000 ml @ 100 mls/hr Q10H IV Last administered on 18:11; Admin Dose 100 MLS/HR; Start 09/02/17 at 21:56 Acetaminophen/ Hydrocodone Bitart ([place] (5/325)) 1 tab Q4H PRN PO PAIN LEVEL 1 -5; Start 09/02/17 at 22:00; Status Future Hold Acetaminophen/ Hydrocodone Bitart ([place] (5/325)) 2 tab Q4H PRN PO PAIN LEVEL 6 -10 Last administered on 09/04/17 10:05; Admin Dose 2 TAB; Start 09/02/17 at 22:00; Status Future Hold Zolpidem Tartrate (Ambien) 5 mg HS PRN PO INSOMNIA; Start 09/02/17 at 22:00 Al Hydrox/Mg Hydrox/Simethicone (Mag-Al Plus) 15 ml Q4H PRN PO CONSTIPATION; Start 09/02/17 at 22:00 Docusate Sodium (Colace) 100 mg BID PO Last administered on 09/04/17 09:15; Admin Dose 100 MG; Start 09/03/17 at 09:00 Ferrous Sulfate (Ferrous Sulfate (Ec)) 325 mg TID PO Last administered on 09/04 09:15; Admin Dose 325 MG; Start 09/03/17 at 09:00 Diazepam (Valium) 5 mg Q4H PRN PO MUSCLE SPASMS Last administered on 23:10; Admin Dose 5 MG; Start 09/02/17 at 22:00 Phenol (Cepastat Lozenge) 1 lozenge PRN PRN MT SORE THROAT; Start 09/02/17 at 22:00 Bethanechol Chloride (Urecholine) 25 mg PRN PRN PO UNABLE TO VOID Last administered on 09/03/17 08:57; Admin Dose 25 MG; Start 09/02/17 at 22:00 Diphenhydramine HCl (Benadryl) 50 mg Q6H PRN PO PRURITUS; Start 09/02/17 at 22 :00 Morphine Sulfate (morphine) 1 mg Q4PCA IV Last administered on 09/03/17 07:02 ; Admin Dose 30 MG; Start 09/02/17 at 22:00 Naloxone HCl (Narcan) 0.2 mg Q2M PRN IV RR 8 BREATHS/MIN OR LESS; Start at 22:00 Dexamethasone 2 mg 2 mg BID IV Last administered on 09/04/17 09:16; Admin Dose 2 MG; Start 10/14/17 at 21:00 Vancomycin HCl/ Sodium Chloride (Vancocin/NS) 250 ml @ 83.333 mls/ hr Q8H IVPB ; Start 09/04/17 at 10:00 Miscellaneous Information VANCOMYCIN TROUGH AT 1700 ONCE ONCE XX ; Start 09/05/17 at 17:00; Stop 09/05/17 at 17:01 Acetaminophen (Ofirmev 1000mg/ 100ml Iv) 100 ml @ 400 mls/hr Q6H IVPB ; Start 09/04/17 at 10:30 BRISA NEAL Sep 04, 2017 11:31
--- NOTE | 2017-09-04 11:35 | PN ---
Date/Time of Note Date/Time of Note DATE: 09/04/17 TIME: 11:32 Assessment/Plan VTE Prophylaxis VTE Prophylaxis Intervention: SCD's Lines/Catheters IV Catheter Type [facility]from [facility]): Peripheral IV Urinary Cath still in place: No Assessment/Plan Chief Complaint/Hosp Course Assessment and plan 1. Ground-level fall with underlying suspect cerebral palsy. Patient reportedly had imaging done from outside facility that was negative for any acute findings. MRI of the brain did show possible mastoiditis as well as right sigmoid sinus suspicious for thrombus. . However recent imaging done on August 29, 2017 showed: CT scan of temporal bones with contrast showed no evidence of mastoiditis and CTA of the brain showed no dural sinus thrombosis. Continue with neurologist recommendation 2. 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 Neurosurgeon is following. patient status post T9 and T11 laminectomy, T9 and T11 arthrodesis, T9-T11 bilateral pedicle screw instrumentation. Continue with her surgeon recommended agents. Physical therapy to follow 3. Right knee pain. No fracture seen for right knee imaging. Continue with analgesics Disposition plan: Continue antibiotics. Continue with physical therapy. Follow -up on spinal imaging. Monitor for clinical improvement. Discussed plan of care with Dr. Rice Problems: Subjective 24 Hr Interval Summary Free Text/Dictation Less confused at this time. No signs of distress. Comfortable at present. Exam/Review of Systems Vital Signs Vitals Vital Signs Date Time Temp Pulse Resp B/P Pulse Ox O2 Delivery O2 Flow Rate FiO2 09/04/17 08:04 97.5 94 22 120/74 97 09/03/17 04:00 Nasal Cannula 09/03/17 02:30 2.0 Intake and Output 09/03/17 09/03/17 09/04/17 15:00 23:00 07:00 Intake Total 300 ml 1450 ml 1650 ml Output Total 90 ml 1135 ml 1500 ml Balance 210 ml 315 ml 150 ml Exam General: less confused. no s/s/ of distress Eyes: pupils equal round, Anicteric sclera Neck: Supple nontender, no JVD Cardiac: S1, S2 auscultated, regular rhythm and rate Pulmonary: No coarse rhonchi or breathing auscultated GI: Abdomen soft nontender nondistended, bowel sounds active Extremities: No swelling noted on right knee Skin: Clean dry and intact Neurologic: alert to self and place Results Result Diagram: 09/03/17 0418 09/03/17 0418 Results 24 hrs Laboratory Tests Test 09/04/17 00:59 Vancomycin Level Trough 11.2 Medications Medications Current Medications Ondansetron HCl (Zofran Inj) 4 mg Q6H PRN IV NAUSEA AND/OR VOMITING; Start 08/27/17 at 06:00 Acetaminophen (Tylenol Tab) 650 mg Q6H PRN PO PAIN LEVEL 1-3 OR FEVER Last administered on 08/27/17 21:04; Admin Dose 650 MG; Start 08/27/17 at 06:00; Status Future Hold Pantoprazole (Protonix Tab) 40 mg DAILY@06 PO Last administered on 09/04/17 05:54; Admin Dose 40 MG; Start 08/27/17 at 06:00 Heparin Sodium (Porcine) (Heparin (5000 Units/0.5 ml)) 5,000 unit Q8 SC Last administered on 09/01/17 05:26; Admin Dose 5,000 UNIT; Start 08/27/17 at 06:00 ; Status Future Hold Acetaminophen/ Hydrocodone Bitart 1 tab 1 tab Q4H PRN PO Pain Last administered on 09/01/17 17:55; Admin Dose 1 TAB; Start 08/28/17 at 10:30; Status Future Hold Cefepime HCl (Maxipime 1gm/50 ml (Pmx)) 50 ml @ 100 mls/hr Q12 IVPB Last administered on 09/04/17 09:16; Admin Dose 100 MLS/HR; Start 08/30/17 at 11: 00 Cyanocobalamin (Vitamin B12 Inj) 1,000 mcg DAILY IM Last administered on 09:16; Admin Dose 1,000 MCG; Start 08/30/17 at 12:00 Morphine Sulfate 2 mg 2 mg Q4H PRN IV pain Last administered on 09/04/17 09: 19; Admin Dose 2 MG; Start 09/01/17 at 09:30 Sodium Chloride (1/2 NS) 1,000 ml @ 100 mls/hr Q10H IV Last administered on 18:11; Admin Dose 100 MLS/HR; Start 09/02/17 at 21:56 Acetaminophen/ Hydrocodone Bitart ([place] (5/325)) 1 tab Q4H PRN PO PAIN LEVEL 1 -5; Start 09/02/17 at 22:00; Status Future Hold Acetaminophen/ Hydrocodone Bitart ([place] (5/325)) 2 tab Q4H PRN PO PAIN LEVEL 6 -10 Last administered on 09/04/17 10:05; Admin Dose 2 TAB; Start 09/02/17 at 22:00; Status Future Hold Zolpidem Tartrate (Ambien) 5 mg HS PRN PO INSOMNIA; Start 09/02/17 at 22:00 Al Hydrox/Mg Hydrox/Simethicone (Mag-Al Plus) 15 ml Q4H PRN PO CONSTIPATION; Start 09/02/17 at 22:00 Docusate Sodium (Colace) 100 mg BID PO Last administered on 09/04/17 09:15; Admin Dose 100 MG; Start 09/03/17 at 09:00 Ferrous Sulfate (Ferrous Sulfate (Ec)) 325 mg TID PO Last administered on 09/04 09:15; Admin Dose 325 MG; Start 09/03/17 at 09:00 Diazepam (Valium) 5 mg Q4H PRN PO MUSCLE SPASMS Last administered on 23:10; Admin Dose 5 MG; Start 09/02/17 at 22:00 Phenol (Cepastat Lozenge) 1 lozenge PRN PRN MT SORE THROAT; Start 09/02/17 at 22:00 Bethanechol Chloride (Urecholine) 25 mg PRN PRN PO UNABLE TO VOID Last administered on 09/03/17 08:57; Admin Dose 25 MG; Start 09/02/17 at 22:00 Diphenhydramine HCl (Benadryl) 50 mg Q6H PRN PO PRURITUS; Start 09/02/17 at 22 :00 Morphine Sulfate (morphine) 1 mg Q4PCA IV Last administered on 09/03/17 07:02 ; Admin Dose 30 MG; Start 09/02/17 at 22:00 Naloxone HCl (Narcan) 0.2 mg Q2M PRN IV RR 8 BREATHS/MIN OR LESS; Start at 22:00 Dexamethasone 2 mg 2 mg BID IV Last administered on 09/04/17 09:16; Admin Dose 2 MG; Start 09/03/17 at 21:00 Vancomycin HCl/ Sodium Chloride (Vancocin/NS) 250 ml @ 83.333 mls/ hr Q8H IVPB ; Start 09/04/17 at 10:00 Miscellaneous Information VANCOMYCIN TROUGH AT 1700 ONCE ONCE XX ; Start 09/05/17 at 17:00; Stop 09/05/17 at 17:01 Acetaminophen (Ofirmev 1000mg/ 100ml Iv) 100 ml @ 400 mls/hr Q6H IVPB ; Start 09/04/17 at 10:30 BRISA NEAL Sep 04, 2017 11:35
[2017-09-04] MEDS: ACETAMINOPHEN 1000MG/100ML IV 100 ML IVPB SCH ×3 (11:44→22:25)
[2017-09-04] MEDS: DIAZEPAM 5 MG TAB PO PRN ×2 (11:44→15:26)
--- NOTE | 2017-09-04 12:48 | RADRPT ---
PROCEDURE: CT thoracic spine CLINICAL INDICATION: Postop evaluation. Status post thoracic decompression and fusion T9-T11 TECHNIQUE: A CT of the thoracic spine was performed on a multi-slice CT scanner utilizing high-res olution axial imaging from the cervical thoracic junction through the thoracolumbar junction. Sagit arvin, coronal, and multiplanar reformatted images were made. The CTDIvol is 16.41 mGy and the DLP is 565.81 mGycm. One or more of the following dose reduction techniques were used: Automated exposure control. Adjustment of the mA and/or kV according to patient size. Use of iterative reconstruction technique. COMPARISON: CT T spine 08/30/2017 and MRI T spine 08/27/2017 FINDINGS: There is mild thoracic dextroscoliosis and straightening of the thoracic kyphosis. There are postsur gical changes of laminectomies and posterior spinal fusion at T9-T11. The hardware is in satisfactor y position. Osseous fusion material is seen in the laminectomy sites. The vertebral body heights are maintained. There is no acute fracture or traumatic malalignment. There is moderate disc height los s at T4-T5, T5-T6, T8-T9 and T9-T10. Congenitally narrow spinal canal with superimposed degenerative changes resulting in multilevel neural foraminal stenosis more evident at T8-T9 through T11-T12. Le ft greater than right neural foraminal stenosis at T5-T6 through T7-T8. There is moderate central ca nal stenosis at T5-T6. There is mild to moderate central canal stenosis at T4-T5. The central canal is not well assessed at the level of the fusion. No sizable fluid collection is seen in the surgical site. IMPRESSION: 1. Status post laminectomies and posterior spinal fusion at T9-T11. The hardware is in appropriate position. No hardware failure. No significant fluid collection is identified in the surgical bed. 2. Congestive and narrow spinal canal with superimposed degenerative changes, as detailed on recent T-spine CT and MRI. 3. Small bilateral pleural effusions. RPTAT: HHO .Rita Edward MD, MD Date Time Electronically viewed and signed by .Rita Edward MD, on 09/04/2017 12:47 .O/
--- NOTE | 2017-09-04 14:48 | CONS ---
Date/Time of Note Date/Time of Note DATE: 09/04/17 TIME: 14:34 Consultation Date/Type/Reason Admit Date/Time Aug 27, 2017 at 04:53 Initial Consult Date Chief Complaint/Hosp Course SUBJECTIVE: 37 y/o male with thoracic stenosis with myelopathy and developmental delay. S/P fall. S/P PROCEDURES: 1. T9 and T11 laminectomy. * 2. T9 at T11, arthrodesis. * 3. T9 to T11 bilateral pedicle screw instrumentation. * 4. Use of operative microscope for intraoperative microdissection. * 5. Frameless computerized stereotactic guidance. No acute events overnight. Comfortably resting in bed. No fevers. Neuro following. Weening of steroids. VS: 120/74 P: 94 R:22 SO2:97% T:97.5 Labs: none for today. Thoracic Spine CT IMPRESSION: 09/04 1. Status post laminectomies and posterior spinal fusion at T9-T11. The hardware is in appropriate position. No hardware failure. No significant fluid collection is identified in the surgical bed. 2. Congestive and narrow spinal canal with superimposed degenerative changes, as detailed on recent T-spine CT and MRI. 3. Small bilateral pleural effusions. Abx: Vanco, Cefepime. PHYSICAL EXAMINATION: GENERAL: Chronically ill-appearing, middle-aged man who is in no distress. HEENT: Head atraumatic, normocephalic. Sclerae anicteric. Buccal mucosa dry. NECK: Supple. CHEST: Rise symmetrical. Breath sounds clear. HEART: S1, S2. ABDOMEN: Soft, bowel tones present. EXTREMITIES: Without cyanosis. ASSESSMENT: 1. Abnormal C-spine MRI with concern of septic versus inflammatory arthritis. 2. Leukocytosis==> on Decadron. 3. Status post ground level fall. 4. Questionable cholesteatoma on the right. 5. Thoracic stenosis and paraparesis==> NS on case 6. Hx cerebral palsy PLAN: The patient remains stable. Continue with IV antbx. 6 + weeks. Pain management. Neuro recommendations. Pt. has brace and getting PT. Type of Consultation: ID Referring Provider: HEIDI RASHEED NP Exam/Review of Systems Vital Signs Vitals Vital Signs Date Time Temp Pulse Resp B/P Pulse Ox O2 Delivery O2 Flow Rate FiO2 09/04/17 08:04 97.5 94 22 120/74 97 10/14/17 04:00 Nasal Cannula 09/03/17 02:30 2.0 Intake and Output 09/03/17 09/03/17 09/04/17 15:00 23:00 07:00 Intake Total 300 ml 1450 ml 1650 ml Output Total 90 ml 1135 ml 1500 ml Balance 210 ml 315 ml 150 ml Results Result Diagram: 09/03/17 0418 09/03/17 0418 Results 24 hrs Laboratory Tests Test 09/04/17 00:59 Vancomycin Level Trough 11.2 Medications Medications Current Medications Ondansetron HCl (Zofran Inj) 4 mg Q6H PRN IV NAUSEA AND/OR VOMITING; Start 08/27/17 at 06:00 Acetaminophen (Tylenol Tab) 650 mg Q6H PRN PO PAIN LEVEL 1-3 OR FEVER Last administered on 08/27/17 21:04; Admin Dose 650 MG; Start 08/27/17 at 06:00; Status Future Hold Pantoprazole (Protonix Tab) 40 mg DAILY@06 PO Last administered on 09/04/17 05:54; Admin Dose 40 MG; Start 08/27/17 at 06:00 Heparin Sodium (Porcine) (Heparin (5000 Units/0.5 ml)) 5,000 unit Q8 SC Last administered on 09/01/17 05:26; Admin Dose 5,000 UNIT; Start 08/27/17 at 06:00 ; Status Future Hold Acetaminophen/ Hydrocodone Bitart 1 tab 1 tab Q4H PRN PO Pain Last administered on 09/01/17 17:55; Admin Dose 1 TAB; Start 08/28/17 at 10:30; Status Future Hold Cefepime HCl (Maxipime 1gm/50 ml (Pmx)) 50 ml @ 100 mls/hr Q12 IVPB Last administered on 09/04/17 09:16; Admin Dose 100 MLS/HR; Start 08/30/17 at 11: 00 Cyanocobalamin (Vitamin B12 Inj) 1,000 mcg DAILY IM Last administered on 09:16; Admin Dose 1,000 MCG; Start 08/30/17 at 12:00 Morphine Sulfate 2 mg 2 mg Q4H PRN IV pain Last administered on 09/04/17 13: 51; Admin Dose 2 MG; Start 09/01/17 at 09:30 Sodium Chloride (1/2 NS) 1,000 ml @ 100 mls/hr Q10H IV Last administered on 18:11; Admin Dose 100 MLS/HR; Start 09/02/17 at 21:56 Acetaminophen/ Hydrocodone Bitart ([place] (5/325)) 1 tab Q4H PRN PO PAIN LEVEL 1 -5; Start 09/02/17 at 22:00; Status Future Hold Acetaminophen/ Hydrocodone Bitart ([place] (5/325)) 2 tab Q4H PRN PO PAIN LEVEL 6 -10 Last administered on 09/04/17 10:05; Admin Dose 2 TAB; Start 09/02/17 at 22:00; Status Future Hold Zolpidem Tartrate (Ambien) 5 mg HS PRN PO INSOMNIA; Start 09/02/17 at 22:00 Al Hydrox/Mg Hydrox/Simethicone (Mag-Al Plus) 15 ml Q4H PRN PO CONSTIPATION; Start 09/02/17 at 22:00 Docusate Sodium (Colace) 100 mg BID PO Last administered on 09/04/17 09:15; Admin Dose 100 MG; Start 09/03/17 at 09:00 Ferrous Sulfate (Ferrous Sulfate (Ec)) 325 mg TID PO Last administered on 09/04 13:49; Admin Dose 325 MG; Start 09/03/17 at 09:00 Diazepam (Valium) 5 mg Q4H PRN PO MUSCLE SPASMS Last administered on 11:44; Admin Dose 5 MG; Start 09/02/17 at 22:00 Phenol (Cepastat Lozenge) 1 lozenge PRN PRN MT SORE THROAT; Start 09/02/17 at 22:00 Bethanechol Chloride (Urecholine) 25 mg PRN PRN PO UNABLE TO VOID Last administered on 09/03/17 08:57; Admin Dose 25 MG; Start 09/02/17 at 22:00 Diphenhydramine HCl (Benadryl) 50 mg Q6H PRN PO PRURITUS; Start 09/02/17 at 22 :00 Morphine Sulfate (morphine) 1 mg Q4PCA IV Last administered on 09/03/17 07:02 ; Admin Dose 30 MG; Start 09/02/17 at 22:00 Naloxone HCl (Narcan) 0.2 mg Q2M PRN IV RR 8 BREATHS/MIN OR LESS; Start at 22:00 Dexamethasone 2 mg 2 mg BID IV Last administered on 09/04/17 09:16; Admin Dose 2 MG; Start 09/03/17 at 21:00 Vancomycin HCl/ Sodium Chloride (Vancocin/NS) 250 ml @ 83.333 mls/ hr Q8H IVPB Last administered on 09/04/17 11:39; Admin Dose 83.333 MLS/HR; Start at 10:00 Miscellaneous Information VANCOMYCIN TROUGH AT 1700 ONCE ONCE XX ; Start 09/05/17 at 17:00; Stop 09/05/17 at 17:01 Acetaminophen (Ofirmev 1000mg/ 100ml Iv) 100 ml @ 400 mls/hr Q6H IVPB Last administered on 09/04/17 11:44; Admin Dose 400 MLS/HR; Start 09/04/17 at 10: 30 GOIP HUYNH Sep 04, 2017 14:46
--- NOTE | 2017-09-04 17:02 | RADRPT ---
PROCEDURE: XR Chest. CLINICAL INDICATION: PICC line TECHNIQUE: Single frontal chest x-ray. COMPARISON: 09/01/2017 FINDINGS: The right-sided PICC line is coiled in the subclavian region. There is patchy opacification the right lower lobe. The main lungs are clear. The cardiomediastinal silhouette is within normal limits. The osseous structures are intact. Partially assessed distal tho racic posterior fusion hardware. IMPRESSION: 1. Right-sided PICC line position in the subclavian region. Repositioning is necessary. RPTAT: QQ .Catrachito Young MD, MD Date Time Electronically viewed and signed by .Catrachito Young MD, on 09/04/2017 17:01 .d/
--- NOTE | 2017-09-04 17:03 | RADRPT ---
PROCEDURE: XR Chest. CLINICAL INDICATION: PICC line placement TECHNIQUE: Single frontal chest x-ray. COMPARISON: DR LILLY CHEST 09/04/2017 FINDINGS: The right-sided PICC line has been repositioned noting its tip within the distal SVC. There is persi stent mild patchy infiltration right lower lobe, representing infiltrate versus atelectasis.. The l ungs are unchanged. No evidence for pneumothorax. The cardiomediastinal silhouette is within normal limits. IMPRESSION: 1. Right-sided PICC line in place. 2. The lungs are unchanged. RPTAT: QQ .Catrachito Young MD, MD Date Time Electronically viewed and signed by .Catrachito Young MD, on 09/04/2017 17:02 .d/
[2017-09-04 20:00] VITALS: BP 120/68; RESP 20
[2017-09-05] MEDS: VANCOMYCIN 1.25 GM in SOD CHLORIDE 0.9% 250 ML IVPB SCH ×2 (01:29→10:09)
[2017-09-05 03:13] VITALS: BP 124/79; RESP 20
[2017-09-05] MEDS: ACETAMINOPHEN 1000MG/100ML IV 100 ML IVPB SCH ×5 (04:34→22:18)
[2017-09-05] MEDS: PANTOPRAZOLE (EC) 40 MG TAB PO SCH (05:41)
[2017-09-05 07:27] VITALS: BP 122/69; RESP 18
--- NOTE | 2017-09-05 09:01 | PN ---
Date/Time of Note Date/Time of Note DATE: 09/05/17 TIME: 08:56 Assessment/Plan Lines/Catheters IV Catheter Type (from [facility]): PICC Line [place] in Place (from [facility]): No Assessment/Plan Chief Complaint/Hosp Course thoracic stenosis and paraparesis. POD #3 s/p T9-T11 decompression and fusion. Neurologically stable. thoracic myelopathy control improved- continue with IV Tylenol, muscle relaxants. Weening off steroids. has brace, PT, rehab. Problems: Subjective 24 Hr Interval Summary Mr. Kirk reports back pain better. Denies numbness or tingling. Exam/Review of Systems Vital Signs Vitals Vital Signs Date Time Temp Pulse Resp B/P Pulse Ox O2 Delivery O2 Flow Rate FiO2 09/05/17 07:27 98.2 90 18 122/69 98 09/04/17 08:00 Nasal Cannula 09/03/17 02:30 2.0 Intake and Output 09/04/17 09/04/17 09/05/17 15:00 23:00 07:00 Intake Total 350 ml 4270 ml 1030 ml Output Total 1550 ml 1900 ml Balance 350 ml 2720 ml -870 ml Exam Constitutional: alert Neurological: other (Moves LE better today, still weak, 4-/5 left LE compared to 4/5 rigth but diffcult to assess due to variable compliance and effort in testing) Results Result Diagram: 09/03/17 0418 09/03/17 0418 Procedures Procedures IMPRESSION: 1. Status post laminectomies and posterior spinal fusion at T9-T11. The hardware is in appropriate position. No hardware failure. No significant fluid collection is identified in the surgical bed. 2. Congestive and narrow spinal canal with superimposed degenerative changes, as detailed on recent T-spine CT and MRI. 3. Small bilateral pleural effusions. Rita Edward MD. I agree with this interpretation. HARJIT BANEGAS MD Sep 05, 2017 09:01
[2017-09-05] MEDS: CEFEPIME 1GM/50 ML (PMX) 50 ML IVPB SCH ×2 (09:03→21:35)
[2017-09-05] MEDS: DEXAMETHASONE 4 MG/ML 1 ML INJ IV SCH ×2 (09:04→21:36)
[2017-09-05] MEDS: CYANOCOBALAMIN 1000 MCG INJ IM SCH (09:04)
[2017-09-05] MEDS: DOCUSATE SODIUM 100 MG CAP PO SCH ×2 (09:04→21:35)
[2017-09-05] MEDS: FERROUS SULFATE (EC) 325 MG TAB PO SCH ×3 (09:04→21:35)
--- NOTE | 2017-09-05 09:16 | PN ---
Date/Time of Note Date/Time of Note DATE: 09/05/17 TIME: 09:15 Assessment/Plan Assessment/Plan Chief Complaint/Hosp Course Problems: Exam/Review of Systems Vital Signs Vitals Vital Signs Date Time Temp Pulse Resp B/P Pulse Ox O2 Delivery O2 Flow Rate FiO2 09/05/17 07:27 98.2 90 18 122/69 98 09/04/17 08:00 Nasal Cannula 09/03/17 02:30 2.0 Intake and Output 09/04/17 09/04/17 09/05/17 15:00 23:00 07:00 Intake Total 350 ml 4270 ml 1030 ml Output Total 1550 ml 1900 ml Balance 350 ml 2720 ml -870 ml Results Result Diagram: 09/03/17 0418 09/03/17 0418 HEIDI RASHEED NP Sep 05, 2017 09:16 Intake Total 350 ml 4270 ml 1030 ml Output Total 1550 ml 1900 ml Balance 350 ml 2720 ml -870 ml Results Result Diagram: 09/03/178 09/03/17 0418 Medications Medications Current Medications Ondansetron HCl (Zofran Inj) 4 mg Q6H PRN IV NAUSEA AND/OR VOMITING; Start 08/27/17 at 06:00 Acetaminophen (Tylenol Tab) 650 mg Q6H PRN PO PAIN LEVEL 1-3 OR FEVER Last administered on 08/27/17 21:04; Admin Dose 650 MG; Start 08/27/17 at 06:00; Status Future Hold Pantoprazole (Protonix Tab) 40 mg DAILY@06 PO Last administered on 09/05/17 05:41; Admin Dose 40 MG; Start 08/27/17 at 06:00 Heparin Sodium (Porcine) (Heparin (5000 Units/0.5 ml)) 5,000 unit Q8 SC Last administered on 09/01/17 05:26; Admin Dose 5,000 UNIT; Start 08/27/17 at 06:00 ; Status Future Hold Acetaminophen/ Hydrocodone Bitart 1 tab 1 tab Q4H PRN PO Pain Last administered on 09/01/17 17:55; Admin Dose 1 TAB; Start 08/28/17 at 10:30; Status Future Hold Cefepime HCl (Maxipime 1gm/50 ml (Pmx)) 50 ml @ 100 mls/hr Q12 IVPB Last administered on 09/05/17 09:03; Admin Dose 100 MLS/HR; Start 08/30/17 at 11: 00 Cyanocobalamin (Vitamin B12 Inj) 1,000 mcg DAILY IM Last administered on 09:04; Admin Dose 1,000 MCG; Start 08/30/17 at 12:00 Morphine Sulfate 2 mg 2 mg Q4H PRN IV pain Last administered on 09/04/17 19: 04; Admin Dose 2 MG; Start 09/01/17 at 09:30 Sodium Chloride (1/2 NS) 1,000 ml @ 100 mls/hr Q10H IV Last administered on 18:11; Admin Dose 100 MLS/HR; Start 09/02/17 at 21:56 Acetaminophen/ Hydrocodone Bitart ([place] (5/325)) 1 tab Q4H PRN PO PAIN LEVEL 1 -5; Start 09/02/17 at 22:00; Status Future Hold Acetaminophen/ Hydrocodone Bitart ([place] (5/325)) 2 tab Q4H PRN PO PAIN LEVEL 6 -10 Last administered on 09/04/17 10:05; Admin Dose 2 TAB; Start 09/02/17 at 22:00; Status Future Hold Zolpidem Tartrate (Ambien) 5 mg HS PRN PO INSOMNIA; Start 09/02/17 at 22:00 Al Hydrox/Mg Hydrox/Simethicone (Mag-Al Plus) 15 ml Q4H PRN PO CONSTIPATION; Start 09/02/17 at 22:00 Docusate Sodium (Colace) 100 mg BID PO Last administered on 09/05/17 09:04; Admin Dose 100 MG; Start 09/03/17 at 09:00 Ferrous Sulfate (Ferrous Sulfate (Ec)) 325 mg TID PO Last administered on 09/05 09:04; Admin Dose 325 MG; Start 09/03/17 at 09:00 Diazepam (Valium) 5 mg Q4H PRN PO MUSCLE SPASMS Last administered on 15:26; Admin Dose 5 MG; Start 09/02/17 at 22:00 Phenol (Cepastat Lozenge) 1 lozenge PRN PRN MT SORE THROAT; Start 09/02/17 at 22:00 Bethanechol Chloride (Urecholine) 25 mg PRN PRN PO UNABLE TO VOID Last administered on 09/03/17 08:57; Admin Dose 25 MG; Start 09/02/17 at 22:00 Diphenhydramine HCl (Benadryl) 50 mg Q6H PRN PO PRURITUS; Start 09/02/17 at 22 :00 Morphine Sulfate (morphine) 1 mg Q4PCA IV Last administered on 09/03/17 07:02 ; Admin Dose 30 MG; Start 09/02/17 at 22:00 Naloxone HCl (Narcan) 0.2 mg Q2M PRN IV RR 8 BREATHS/MIN OR LESS; Start at 22:00 Dexamethasone 2 mg 2 mg BID IV Last administered on 09/05/17 09:04; Admin Dose 2 MG; Start 09/03/17 at 21:00 Vancomycin HCl/ Sodium Chloride (Vancocin/NS) 250 ml @ 83.333 mls/ hr Q8H IVPB Last administered on 09/05/17 01:29; Admin Dose 83.333 MLS/HR; Start at 10:00 Miscellaneous Information VANCOMYCIN TROUGH AT 1700 ONCE ONCE XX ; Start 09/05/17 at 17:00; Stop 09/05/17 at 17:01 Acetaminophen (Ofirmev 1000mg/ 100ml Iv) 100 ml @ 400 mls/hr Q6H IVPB Last administered on 09/05/17 04:34; Admin Dose 400 MLS/HR; Start 09/04/17 at 10: 30 HEIDI RASHEED NP Sep 05, 2017 09:16 HEIDI RASHEED NP Sep 05, 2017 09:16
--- NOTE | 2017-09-05 09:19 | RADRPT ---
PROCEDURE: US guidance for PICC line CLINICAL INDICATION: PICC line placement TECHNIQUE: Multiple real-time images were acquired of the patient's arm utilizing a high resolutio n transducer. This was performed by the PICC line nurse for venous access. COMPARISON: None FINDINGS: Ultrasound guidance for PICC line placement. IMPRESSION: Ultrasound guidance for PICC line placement. RPTAT: AA .Douglas Black MD, MD Date Time Electronically viewed and signed by .Douglas Black MD, on 09/05/2017 09:19 .S/
--- NOTE | 2017-09-05 09:23 | PN ---
Date/Time of Note Date/Time of Note DATE: 09/05/17 TIME: 09:20 Assessment/Plan VTE Prophylaxis VTE Prophylaxis Intervention: SCD's Lines/Catheters IV Catheter Type (from Nrs): PICC Line Central line still needed: Yes Urinary Cath still in place: No Assessment/Plan Chief Complaint/Hosp Course 1. 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 Status post T9 - T11 laminectomy, T9 -T11 arthrodesis, and T9-T11 bilateral pedicle screw instrumentation on 09/02/2017. Continue physical therapy. Continue tapering dose of steroids. 2. Abnormal bone marrow signal with surrounding soft tissue edema involving the left C3-C4 facet joint; increased joint effusion and small focus of probable erosion involving the left inferior articular facet of C3, findings concerning for septic/inflammatory arthritis. Cervical spine MRI showing small amount of enhancing soft tissue likely a phlegmon around the left facet joint extending into the left neural foramen. The patient on antimicrobials as per infectious diseases. 3. Cerebral palsy. Continue supportive care. 4. Fluids, electrolytes, and nutrition. Regular diet. 5. DVT prophylaxis. Bilateral SCDs. 6. Plan. Continue antimicrobials as per infectious diseases. Steroid tapering as per neurosurgery. Continue physical therapy. Case discussed with Dr. Coreas. Problems: Subjective 24 Hr Interval Summary Free Text/Dictation Back pain well controlled. Exam/Review of Systems Vital Signs Vitals Vital Signs Date Time Temp Pulse Resp B/P Pulse Ox O2 Delivery O2 Flow Rate FiO2 09/05/17 07:27 98.2 90 18 122/69 98 09/04/17 08:00 Nasal Cannula 09/03/17 02:30 2.0 Intake and Output 09/04/17 09/04/17 09/05/17 15:00 23:00 07:00 Intake Total 350 ml 4270 ml 1030 ml Output Total 1550 ml 1900 ml Balance 350 ml 2720 ml -870 ml Exam General: Adequately build 37 year-old male lying in bed in no apparent distress. HEENT: Normocephalic, atraumatic. Eyes: Anicteric sclerae, conjunctivae clear. ENT: Nasal septum midline, oral mucosa moist. Neck supple, no JVD noticed. Respiratory: Bilaterally clear breath sounds. No use of accessory muscles of respiration. No adventitious breath sounds. Cardiovascular: S1, S2 heard. No murmurs or gallops. Abdomen: Soft, nontender, and nondistended. Bowel sounds positive in all 4 quadrants. Genitourinary: Deferred. Extremities: No cyanosis, no clubbing, no edema. Peripheral pulses palpable. Neurologic: The patient is awake and alert. Dysarthria. RLE weaker when compared to the left. Skin: Normal skin turgor. Results Result Diagram: 09/03/1741709/03/17417 Medications Medications Current Medications Ondansetron HCl (Zofran Inj) 4 mg Q6H PRN IV NAUSEA AND/OR VOMITING; Start 08/27/17 at 06:00 Acetaminophen (Tylenol Tab) 650 mg Q6H PRN PO PAIN LEVEL 1-3 OR FEVER Last administered on 08/27/17 21:04; Admin Dose 650 MG; Start 08/27/17 at 06:00; Status Future Hold Pantoprazole (Protonix Tab) 40 mg DAILY@06 PO Last administered on 09/05/17 05:41; Admin Dose 40 MG; Start 08/27/17 at 06:00 Heparin Sodium (Porcine) (Heparin (5000 Units/0.5 ml)) 5,000 unit Q8 SC Last administered on 09/01/17 05:26; Admin Dose 5,000 UNIT; Start 08/27/17 at 06:00 ; Status Future Hold Acetaminophen/ Hydrocodone Bitart 1 tab 1 tab Q4H PRN PO Pain Last administered on 09/01/17 17:55; Admin Dose 1 TAB; Start 08/28/17 at 10:30; Status Future Hold Cefepime HCl (Maxipime 1gm/50 ml (Pmx)) 50 ml @ 100 mls/hr Q12 IVPB Last administered on 09/05/17 09:03; Admin Dose 100 MLS/HR; Start 08/30/17 at 11: 00 Cyanocobalamin (Vitamin B12 Inj) 1,000 mcg DAILY IM Last administered on 09:04; Admin Dose 1,000 MCG; Start 08/30/17 at 12:00 Morphine Sulfate 2 mg 2 mg Q4H PRN IV pain Last administered on 09/04/17 19: 04; Admin Dose 2 MG; Start 09/01/17 at 09:30 Sodium Chloride (1/2 NS) 1,000 ml @ 100 mls/hr Q10H IV Last administered on 18:11; Admin Dose 100 MLS/HR; Start 09/02/17 at 21:56 Acetaminophen/ Hydrocodone Bitart ([place] (5/325)) 1 tab Q4H PRN PO PAIN LEVEL 1 -5; Start 09/02/17 at 22:00; Status Future Hold Acetaminophen/ Hydrocodone Bitart ([place] (5/325)) 2 tab Q4H PRN PO PAIN LEVEL 6 -10 Last administered on 09/04/17 10:05; Admin Dose 2 TAB; Start 09/02/17 at 22:00; Status Future Hold Zolpidem Tartrate (Ambien) 5 mg HS PRN PO INSOMNIA; Start 09/02/17 at 22:00 Al Hydrox/Mg Hydrox/Simethicone (Mag-Al Plus) 15 ml Q4H PRN PO CONSTIPATION; Start 09/02/17 at 22:00 Docusate Sodium (Colace) 100 mg BID PO Last administered on 09/05/17 09:04; Admin Dose 100 MG; Start 09/03/17 at 09:00 Ferrous Sulfate (Ferrous Sulfate (Ec)) 325 mg TID PO Last administered on 09/05 09:04; Admin Dose 325 MG; Start 09/03/17 at 09:00 Diazepam (Valium) 5 mg Q4H PRN PO MUSCLE SPASMS Last administered on 15:26; Admin Dose 5 MG; Start 09/02/17 at 22:00 Phenol (Cepastat Lozenge) 1 lozenge PRN PRN MT SORE THROAT; Start 09/02/17 at 22:00 Bethanechol Chloride (Urecholine) 25 mg PRN PRN PO UNABLE TO VOID Last administered on 09/03/17 08:57; Admin Dose 25 MG; Start 09/02/17 at 22:00 Diphenhydramine HCl (Benadryl) 50 mg Q6H PRN PO PRURITUS; Start 09/02/17 at 22 :00 Morphine Sulfate (morphine) 1 mg Q4PCA IV Last administered on 09/03/17 07:02 ; Admin Dose 30 MG; Start 09/02/17 at 22:00 Naloxone HCl (Narcan) 0.2 mg Q2M PRN IV RR 8 BREATHS/MIN OR LESS; Start at 22:00 Dexamethasone 2 mg 2 mg BID IV Last administered on 09/05/17 09:04; Admin Dose 2 MG; Start 09/03/17 at 21:00 Vancomycin HCl/ Sodium Chloride (Vancocin/NS) 250 ml @ 83.333 mls/ hr Q8H IVPB Last administered on 09/05/17 01:29; Admin Dose 83.333 MLS/HR; Start at 10:00 Miscellaneous Information VANCOMYCIN TROUGH AT 1700 ONCE ONCE XX ; Start 09/05/17 at 17:00; Stop 09/05/17 at 17:01 Acetaminophen (Ofirmev 1000mg/ 100ml Iv) 100 ml @ 400 mls/hr Q6H IVPB Last administered on 09/05/17 04:34; Admin Dose 400 MLS/HR; Start 09/04/17 at 10: 30 HEIDI RASHEED NP Sep 05, 2017 09:23
[2017-09-05] MEDS: SOD CHLORIDE 0.45% 1,000 ML IV SCH ×2 (10:09→19:56)
[2017-09-05] MEDS: morphine 2 MG INJ IV PRN (12:44)
--- NOTE | 2017-09-05 14:53 | CONS ---
Date/Time of Note Date/Time of Note DATE: 09/05/17 TIME: 14:47 Consultation Date/Type/Reason Admit Date/Time Aug 27, 2017 at 04:53 Initial Consult Date Chief Complaint/Hosp Course SUBJECTIVE: 37 y/o male with thoracic stenosis with myelopathy and developmental delay. S/P fall. S/P PROCEDURES: 1. T9 and T11 laminectomy. * 2. T9 at T11, arthrodesis. * 3. T9 to T11 bilateral pedicle screw instrumentation. * 4. Use of operative microscope for intraoperative microdissection. * 5. Frameless computerized stereotactic guidance. No acute events overnight. Comfortably resting in bed. No fevers. Neuro following. Weening of steroids. VS: 122/69 P: 90 R:18 SO2:98% T:98.2 Labs: none for today. Thoracic Spine CT IMPRESSION: 09/04 1. Status post laminectomies and posterior spinal fusion at T9-T11. The hardware is in appropriate position. No hardware failure. No significant fluid collection is identified in the surgical bed. 2. Congestive and narrow spinal canal with superimposed degenerative changes, as detailed on recent T-spine CT and MRI. 3. Small bilateral pleural effusions. Abx: Vanco, Cefepime. PHYSICAL EXAMINATION: GENERAL: Chronically ill-appearing, middle-aged man who is in no distress. HEENT: Head atraumatic, normocephalic. Sclerae anicteric. Buccal mucosa dry. NECK: Supple. CHEST: Rise symmetrical. Breath sounds clear. HEART: S1, S2. ABDOMEN: Soft, bowel tones present. EXTREMITIES: Without cyanosis. ASSESSMENT: 1. Abnormal C-spine MRI with concern of septic versus inflammatory arthritis. 2. Leukocytosis==> on Decadron. 3. Status post ground level fall. 4. Questionable cholesteatoma on the right. 5. Thoracic stenosis and paraparesis==> NS on case 6. Hx cerebral palsy PLAN: The patient remains stable. Continue with IV antbx. 6 + weeks. Pain management. Neuro recommendations. Pt. has brace and getting PT. Type of Consultation: ID Referring Provider: HEIDI RASHEED NP Exam/Review of Systems Vital Signs Vitals Vital Signs Date Time Temp Pulse Resp B/P Pulse Ox O2 Delivery O2 Flow Rate FiO2 09/05/17 07:27 98.2 90 18 122/69 98 10/15/17 08:00 Nasal Cannula 09/03/17 02:30 2.0 Intake and Output 09/04/17 09/04/17 09/05/17 15:00 23:00 07:00 Intake Total 350 ml 4270 ml 1030 ml Output Total 1550 ml 1900 ml Balance 350 ml 2720 ml -870 ml Results Result Diagram: 09/03/17 0418 09/03/17 0418 Medications Medications Current Medications Ondansetron HCl (Zofran Inj) 4 mg Q6H PRN IV NAUSEA AND/OR VOMITING; Start 08/27/17 at 06:00 Acetaminophen (Tylenol Tab) 650 mg Q6H PRN PO PAIN LEVEL 1-3 OR FEVER Last administered on 08/27/17 21:04; Admin Dose 650 MG; Start 08/27/17 at 06:00; Status Future Hold Pantoprazole (Protonix Tab) 40 mg DAILY@06 PO Last administered on 09/05/17 05:41; Admin Dose 40 MG; Start 08/27/17 at 06:00 Heparin Sodium (Porcine) (Heparin (5000 Units/0.5 ml)) 5,000 unit Q8 SC Last administered on 09/01/17 05:26; Admin Dose 5,000 UNIT; Start 08/27/17 at 06:00 ; Status Future Hold Acetaminophen/ Hydrocodone Bitart 1 tab 1 tab Q4H PRN PO Pain Last administered on 09/01/17 17:55; Admin Dose 1 TAB; Start 08/28/17 at 10:30; Status Future Hold Cefepime HCl (Maxipime 1gm/50 ml (Pmx)) 50 ml @ 100 mls/hr Q12 IVPB Last administered on 09/05/17 09:03; Admin Dose 100 MLS/HR; Start 08/30/17 at 11: 00 Cyanocobalamin (Vitamin B12 Inj) 1,000 mcg DAILY IM Last administered on 09:04; Admin Dose 1,000 MCG; Start 08/30/17 at 12:00 Morphine Sulfate 2 mg 2 mg Q4H PRN IV pain Last administered on 09/05/17 12: 44; Admin Dose 2 MG; Start 09/01/17 at 09:30 Sodium Chloride (1/2 NS) 1,000 ml @ 100 mls/hr Q10H IV Last administered on 10:09; Admin Dose 100 MLS/HR; Start 09/02/17 at 21:56 Acetaminophen/ Hydrocodone Bitart ([place] (5/325)) 1 tab Q4H PRN PO PAIN LEVEL 1 -5; Start 09/02/17 at 22:00; Status Future Hold Acetaminophen/ Hydrocodone Bitart ([place] (5/325)) 2 tab Q4H PRN PO PAIN LEVEL 6 -10 Last administered on 09/04/17 10:05; Admin Dose 2 TAB; Start 09/02/17 at 22:00; Status Future Hold Zolpidem Tartrate (Ambien) 5 mg HS PRN PO INSOMNIA; Start 09/02/17 at 22:00 Al Hydrox/Mg Hydrox/Simethicone (Mag-Al Plus) 15 ml Q4H PRN PO CONSTIPATION; Start 09/02/17 at 22:00 Docusate Sodium (Colace) 100 mg BID PO Last administered on 09/05/17 09:04; Admin Dose 100 MG; Start 09/03/17 at 09:00 Ferrous Sulfate (Ferrous Sulfate (Ec)) 325 mg TID PO Last administered on 09/05 12:44; Admin Dose 325 MG; Start 09/03/17 at 09:00 Diazepam (Valium) 5 mg Q4H PRN PO MUSCLE SPASMS Last administered on 15:26; Admin Dose 5 MG; Start 09/02/17 at 22:00 Phenol (Cepastat Lozenge) 1 lozenge PRN PRN MT SORE THROAT; Start 09/02/17 at 22:00 Bethanechol Chloride (Urecholine) 25 mg PRN PRN PO UNABLE TO VOID Last administered on 09/03/17 08:57; Admin Dose 25 MG; Start 09/02/17 at 22:00 Diphenhydramine HCl (Benadryl) 50 mg Q6H PRN PO PRURITUS; Start 09/02/17 at 22 :00 Morphine Sulfate (morphine) 1 mg Q4PCA IV Last administered on 09/03/17 07:02 ; Admin Dose 30 MG; Start 09/02/17 at 22:00 Naloxone HCl (Narcan) 0.2 mg Q2M PRN IV RR 8 BREATHS/MIN OR LESS; Start at 22:00 Dexamethasone 2 mg 2 mg BID IV Last administered on 09/05/17 09:04; Admin Dose 2 MG; Start 09/03/17 at 21:00 Vancomycin HCl/ Sodium Chloride (Vancocin/NS) 250 ml @ 83.333 mls/ hr Q8H IVPB Last administered on 09/05/17 10:09; Admin Dose 83.333 MLS/HR; Start at 10:00 Miscellaneous Information VANCOMYCIN TROUGH AT 1700 ONCE ONCE XX ; Start 09/05/17 at 17:00; Stop 09/05/17 at 17:01 Acetaminophen (Ofirmev 1000mg/ 100ml Iv) 100 ml @ 400 mls/hr Q6H IVPB Last administered on 09/05/17 12:44; Admin Dose 400 MLS/HR; Start 09/04/17 at 10: 30 GOPI HUYNH Sep 05, 2017 14:53
[2017-09-05 15:59] VITALS: BP 119/72; RESP 18
[2017-09-05] MEDS: VANCOMYCIN 1 GM in NS 250 ML IVPB SCH (18:37)
[2017-09-05 20:47] VITALS: BP 132/70; RESP 20
[2017-09-06] MEDS: VANCOMYCIN 1 GM in NS 250 ML IVPB SCH ×3 (01:57→18:38)
[2017-09-06] MEDS: morphine 2 MG INJ IV PRN ×3 (02:29→21:02)
[2017-09-06 02:39] VITALS: BP 128/85; RESP 20
[2017-09-06 05:27] LABS: BASOPHILS % 0.1 % (0.0-2.0); EOSINOPHILS # 0.1 10^3/ul (0.0-0.5); EOSINOPHILS % 0.6 % (0.0-7.0); HEMATOCRIT 35.3 % (42.0-52.0); HEMOGLOBIN 11.9 g/dl (14.0-18.0); LYMPHOCYTES # 1.3 10^3/ul (0.8-2.9); LYMPHOCYTES % 8.8 % (15.0-51.0); MEAN CORPUSCULAR HEMOGLOBIN 32.4 pg (29.0-33.0); MEAN CORPUSCULAR HGB CONC 33.7 g/dl (32.0-37.0); MEAN CORPUSCULAR VOLUME 96.2 fl (82.0-101.0); MEAN PLATELET VOLUME 11.4 fl (7.4-10.4); MONOCYTE # 1.4 10^3/ul (0.3-0.9); NEUTROPHIL # 11.3 10^3/ul (1.6-7.5); NEUTROPHILS % 79.3 % (39.0-77.0); PLATELET COUNT 175 10^3/UL (140-415); RED BLOOD COUNT 3.67 10^6/ul (4.70-6.10); RED CELL DISTRIBUTION WIDTH 14.2 % (11.5-14.5); WHITE BLOOD COUNT 14.3 10^3/ul (4.8-10.8)
[2017-09-06] MEDS: ACETAMINOPHEN 1000MG/100ML IV 100 ML IVPB SCH ×4 (05:37→22:25)
[2017-09-06] MEDS: SOD CHLORIDE 0.45% 1,000 ML IV SCH ×2 (05:56→15:56)
[2017-09-06] MEDS: PANTOPRAZOLE (EC) 40 MG TAB PO SCH (06:24)
[2017-09-06 06:39] LABS: ALBUMIN 2.5 g/dl (3.3-4.9); ALBUMIN/GLOBULIN RATIO 0.86; BILIRUBIN,INDIRECT 0.4 mg/dl (0-1.1); BILIRUBIN,TOTAL 0.4 mg/dl (0.2-1.3); CALCIUM 8.4 mg/dl (8.4-10.2); CREATININE 0.61 mg/dl (0.61-1.24); TOTAL PROTEIN 5.4 g/dl (6.1-8.1)
[2017-09-06 06:53] LABS: MAGNESIUM 1.9 mg/dl (1.7-2.5); PHOSPHORUS 3.6 mg/dl (2.5-4.9)
--- NOTE | 2017-09-06 07:27 | PN ---
Date/Time of Note Date/Time of Note DATE: 09/06/17 TIME: 07:26 Assessment/Plan VTE Prophylaxis VTE Prophylaxis Intervention: SCD's Lines/Catheters IV Catheter Type (from Nrs): PICC Line Central line still needed: Yes Urinary Cath still in place: No Assessment/Plan Chief Complaint/Hosp Course 1. 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 Status post T9 - T11 laminectomy, T9 -T11 arthrodesis, and T9-T11 bilateral pedicle screw instrumentation on 09/02/2017. Continue physical therapy. Continue tapering dose of steroids. 2. Abnormal bone marrow signal with surrounding soft tissue edema involving the left C3-C4 facet joint; increased joint effusion and small focus of probable erosion involving the left inferior articular facet of C3, findings concerning for septic/inflammatory arthritis. Cervical spine MRI showing small amount of enhancing soft tissue likely a phlegmon around the left facet joint extending into the left neural foramen. The patient on antimicrobials as per infectious diseases. 3. Cerebral palsy. Continue supportive care. 4. Fluids, electrolytes, and nutrition. Regular diet. 5. DVT prophylaxis. Bilateral SCDs. 6. Plan. Continue antimicrobials as per infectious diseases. Steroid tapering as per neurosurgery. Continue physical therapy. Case discussed with Dr. Coreas. Problems: Subjective 24 Hr Interval Summary Free Text/Dictation Back pain well controlled. Exam/Review of Systems Vital Signs Vitals Vital Signs Date Time Temp Pulse Resp B/P Pulse Ox O2 Delivery O2 Flow Rate FiO2 09/06/17 02:39 97.7 95 20 128/85 98 09/04/17 08:00 Nasal Cannula 09/03/17 02:30 2.0 Intake and Output 09/05/17 09/05/17 09/06/17 15:00 23:00 07:00 Intake Total 900 ml 1780 ml 1550 ml Output Total 1900 ml 2400 ml Balance 900 ml -120 ml -850 ml Exam General: Adequately build 37 year-old male lying in bed in no apparent distress. HEENT: Normocephalic, atraumatic. Eyes: Anicteric sclerae, conjunctivae clear. ENT: Nasal septum midline, oral mucosa moist. Neck supple, no JVD noticed. Respiratory: Bilaterally clear breath sounds. No use of accessory muscles of respiration. No adventitious breath sounds. Cardiovascular: S1, S2 heard. No murmurs or gallops. Abdomen: Soft, nontender, and nondistended. Bowel sounds positive in all 4 quadrants. Genitourinary: Deferred. Extremities: No cyanosis, no clubbing, no edema. Peripheral pulses palpable. Neurologic: The patient is awake and alert. Dysarthria. RLE weaker when compared to the left. Skin: Normal skin turgor. Results Result Diagram: 09/06/17 0456 09/06/17 0456 Results 24 hrs Laboratory Tests Test 09/05/17 16:48 09/06/17 04:56 Vancomycin Level Trough 17.4 White Blood Count 14.3 H Red Blood Count 3.67 L Hemoglobin 11.9 L Hematocrit 35.3 L Mean Corpuscular Volume 96.2 Mean Corpuscular Hemoglobin 32.4 Mean Corpuscular Hemoglobin Concent 33.7 Red Cell Distribution Width 14.2 Platelet Count 175 Mean Platelet Volume 11.4 H Neutrophils % 79.3 H Lymphocytes % 8.8 L Monocytes % 10.0 Eosinophils % 0.6 Basophils % 0.1 Nucleated Red Blood Cells % 0.0 Neutrophils # 11.3 H Lymphocytes # 1.3 Monocytes # 1.4 H Eosinophils # 0.1 Basophils # 0.0 Nucleated Red Blood Cells # 0.0 Sodium Level 137 Potassium Level 4.0 Chloride Level 106 Carbon Dioxide Level 29 Anion Gap 6 L Blood Urea Nitrogen 18 Creatinine 0.61 Glucose Level 104 Calcium Level 8.4 Total Bilirubin 0.4 Direct Bilirubin 0.00 Indirect Bilirubin 0.4 Aspartate Amino Transf (AST/SGOT) 19 Alanine Aminotransferase (ALT/SGPT) 63 Alkaline Phosphatase 47 Total Protein 5.4 L Albumin 2.5 L Globulin 2.90 Albumin/Globulin Ratio 0.86 Medications Medications Current Medications Ondansetron HCl (Zofran Inj) 4 mg Q6H PRN IV NAUSEA AND/OR VOMITING; Start 08/27/17 at 06:00 Acetaminophen (Tylenol Tab) 650 mg Q6H PRN PO PAIN LEVEL 1-3 OR FEVER Last administered on 08/27/17 21:04; Admin Dose 650 MG; Start 08/27/17 at 06:00; Status Future Hold Pantoprazole (Protonix Tab) 40 mg DAILY@06 PO Last administered on 09/06/17 06:24; Admin Dose 40 MG; Start 08/27/17 at 06:00 Heparin Sodium (Porcine) (Heparin (5000 Units/0.5 ml)) 5,000 unit Q8 SC Last administered on 09/01/17 05:26; Admin Dose 5,000 UNIT; Start 08/27/17 at 06:00 ; Status Future Hold Acetaminophen/ Hydrocodone Bitart 1 tab 1 tab Q4H PRN PO Pain Last administered on 09/01/17 17:55; Admin Dose 1 TAB; Start 08/28/17 at 10:30; Status Future Hold Cefepime HCl (Maxipime 1gm/50 ml (Pmx)) 50 ml @ 100 mls/hr Q12 IVPB Last administered on 09/05/17 21:35; Admin Dose 100 MLS/HR; Start 08/30/17 at 11: 00 Cyanocobalamin (Vitamin B12 Inj) 1,000 mcg DAILY IM Last administered on 09:04; Admin Dose 1,000 MCG; Start 08/30/17 at 12:00 Morphine Sulfate 2 mg 2 mg Q4H PRN IV pain Last administered on 09/06/17 02: 29; Admin Dose 2 MG; Start 09/01/17 at 09:30 Sodium Chloride (1/2 NS) 1,000 ml @ 100 mls/hr Q10H IV Last administered on 10:09; Admin Dose 100 MLS/HR; Start 09/02/17 at 21:56 Acetaminophen/ Hydrocodone Bitart ([place] (5/325)) 1 tab Q4H PRN PO PAIN LEVEL 1 -5; Start 09/02/17 at 22:00; Status Future Hold Acetaminophen/ Hydrocodone Bitart ([place] (5/325)) 2 tab Q4H PRN PO PAIN LEVEL 6 -10 Last administered on 09/04/17 10:05; Admin Dose 2 TAB; Start 09/02/17 at 22:00; Status Future Hold Zolpidem Tartrate (Ambien) 5 mg HS PRN PO INSOMNIA; Start 09/02/17 at 22:00 Al Hydrox/Mg Hydrox/Simethicone (Mag-Al Plus) 15 ml Q4H PRN PO CONSTIPATION; Start 09/02/17 at 22:00 Docusate Sodium (Colace) 100 mg BID PO Last administered on 09/05/17 21:35; Admin Dose 100 MG; Start 09/03/17 at 09:00 Ferrous Sulfate (Ferrous Sulfate (Ec)) 325 mg TID PO Last administered on 09/05 21:35; Admin Dose 325 MG; Start 09/03/17 at 09:00 Diazepam (Valium) 5 mg Q4H PRN PO MUSCLE SPASMS Last administered on 15:26; Admin Dose 5 MG; Start 09/02/17 at 22:00 Phenol (Cepastat Lozenge) 1 lozenge PRN PRN MT SORE THROAT; Start 09/02/17 at 22:00 Bethanechol Chloride (Urecholine) 25 mg PRN PRN PO UNABLE TO VOID Last administered on 09/03/17 08:57; Admin Dose 25 MG; Start 09/02/17 at 22:00 Diphenhydramine HCl (Benadryl) 50 mg Q6H PRN PO PRURITUS; Start 09/02/17 at 22 :00 Morphine Sulfate (morphine) 1 mg Q4PCA IV Last administered on 09/03/17 07:02 ; Admin Dose 30 MG; Start 09/02/17 at 22:00 Naloxone HCl (Narcan) 0.2 mg Q2M PRN IV RR 8 BREATHS/MIN OR LESS; Start at 22:00 Dexamethasone 2 mg 2 mg BID IV Last administered on 09/05/17 21:36; Admin Dose 2 MG; Start 09/03/17 at 21:00 Acetaminophen 100 ml @ 400 mls/hr Q6H IVPB Last administered on 09/06/17 05: 37; Admin Dose 400 MLS/HR; Start 09/04/17 at 10:30 Vancomycin HCl (Vancocin) 250 ml @ 125 mls/hr Q8H IVPB Last administered on 01:57; Admin Dose 125 MLS/HR; Start 09/05/17 at 18:00 HEIDI RASHEED NP Sep 06, 2017 07:27
[2017-09-06 07:33] VITALS: BP 122/72; RESP 18
[2017-09-06] MEDS: CEFEPIME 1GM/50 ML (PMX) 50 ML IVPB SCH ×2 (09:38→21:01)
[2017-09-06] MEDS: FERROUS SULFATE (EC) 325 MG TAB PO SCH ×3 (09:39→21:01)
[2017-09-06] MEDS: DOCUSATE SODIUM 100 MG CAP PO SCH ×2 (09:39→21:01)
[2017-09-06] MEDS: CYANOCOBALAMIN 1000 MCG INJ IM SCH (09:39)
[2017-09-06] MEDS: DEXAMETHASONE 4 MG/ML 1 ML INJ IV SCH (09:39)
[2017-09-06 14:00] VITALS: BP 132/73; RESP 19
--- NOTE | 2017-09-06 14:36 | PN ---
DATE: 09/06/2017 SUBJECTIVE: No acute changes overnight, no fevers. The patient is alert, looks comfortable. WBC t arnie 14.3, H and H 11.9 and 35.3, platelets 175, neutrophils 79.3, BUN 18, creatinine 0.61. ANTIMICROBIALS: 1. Vancomycin. 2. Cefepime. INDWELLINGS: PICC line. PHYSICAL EXAMINATION: GENERAL: Well-developed, middle-aged man who is alert, in no distress. HEENT: Head atraumatic, normocephalic. Sclerae anicteric. Buccal mucosa pink. NECK: Supple. CHEST: Rise symmetrical. Breath sounds diminished to bases. HEART: S1, S2. ABDOMEN: Soft. Bowel tones present. EXTREMITIES: Without cyanosis. ASSESSMENT: 1. Abnormal C-spine MRI with concern of septic versus inflammatory arthritis, patient remains on br oad spectrum antibiotics. 2. Leukocytosis secondary to Decadron. 3. Thoracic stenosis and paraparesis status post T9-11 laminectomy, arthrodesis, bilateral pedical screw instrumentation on 09/02/2017. 4. Cerbral palsy. PLAN: The patient remains stable, covered with appropriate antimicrobials which we will continue fo r 6 weeks total. Follow neurosurgery recommendations. Dictated By: VIRIDIANA DESAI [employer] for CAROLYN KRISHNAMURTHY/YOU Conf#: [id number] DID#: [id number]
--- NOTE | 2017-09-06 17:12 | CONS ---
Date/Time of Note Date/Time of Note DATE: 09/06/17 TIME: 17:09 Assessment/Plan Assessment/Plan Chief Complaint/Hosp Course thoracic stenosis and paraparesis. POD #4 s/p T9-T11 decompression and fusion. Neurologically stable. thoracic myelopathy control improved- continue with IV Tylenol, muscle relaxants. Weening off steroids. has brace, PT, rehab. Stable for transfer from [facility]. Problems: Consultation Date/Type/Reason Admit Date/Time Aug 27, 2017 at 04:53 Initial Consult Date 08/27/17 Type of Consultation: Neurosurgery Referring Provider: HEIDI RASHEED NP 24 HR Interval Summary Free Text/Dictation Patient stable. Back pain controlled. Doesn't really respond when asked about how his legs feel but did appear to try to show that he could move his right LE better. Exam/Review of Systems Vital Signs Vitals Vital Signs Date Time Temp Pulse Resp B/P Pulse Ox O2 Delivery O2 Flow Rate FiO2 09/06/17 14:00 98.3 113 19 132/73 99 09/04/17 08:00 Nasal Cannula 09/03/17 02:30 2.0 Intake and Output 09/05/17 09/05/17 09/06/17 15:00 23:00 07:00 Intake Total 900 ml 1780 ml 1550 ml Output Total 1900 ml 2400 ml Balance 900 ml -120 ml -850 ml Exam Neurological: other (move R LE better today 4-/5 diffusely, right ~4/5) Skin: other (incision C/D/I) Results Result Diagram: 09/06/17 0456 09/06/17 0456 Results 24 hrs Laboratory Tests Test 09/06/17 04:56 White Blood Count 14.3 H Red Blood Count 3.67 L Hemoglobin 11.9 L Hematocrit 35.3 L Mean Corpuscular Volume 96.2 Mean Corpuscular Hemoglobin 32.4 Mean Corpuscular Hemoglobin Concent 33.7 Red Cell Distribution Width 14.2 Platelet Count 175 Mean Platelet Volume 11.4 H Neutrophils % 79.3 H Lymphocytes % 8.8 L Monocytes % 10.0 Eosinophils % 0.6 Basophils % 0.1 Nucleated Red Blood Cells % 0.0 Neutrophils # 11.3 H Lymphocytes # 1.3 Monocytes # 1.4 H Eosinophils # 0.1 Basophils # 0.0 Nucleated Red Blood Cells # 0.0 Sodium Level 137 Potassium Level 4.0 Chloride Level 106 Carbon Dioxide Level 29 Anion Gap 6 L Blood Urea Nitrogen 18 Creatinine 0.61 Glucose Level 104 Calcium Level 8.4 Phosphorus Level 3.6 Magnesium Level 1.9 Total Bilirubin 0.4 Direct Bilirubin 0.00 Indirect Bilirubin 0.4 Aspartate Amino Transf (AST/SGOT) 19 Alanine Aminotransferase (ALT/SGPT) 63 Alkaline Phosphatase 47 Total Protein 5.4 L Albumin 2.5 L Globulin 2.90 Albumin/Globulin Ratio 0.86 Medications Medications Current Medications Ondansetron HCl (Zofran Inj) 4 mg Q6H PRN IV NAUSEA AND/OR VOMITING; Start 08/27/17 at 06:00 Acetaminophen (Tylenol Tab) 650 mg Q6H PRN PO PAIN LEVEL 1-3 OR FEVER Last administered on 08/27/17 21:04; Admin Dose 650 MG; Start 08/27/17 at 06:00; Status Future Hold Pantoprazole (Protonix Tab) 40 mg DAILY@06 PO Last administered on 09/06/17 06:24; Admin Dose 40 MG; Start 08/27/17 at 06:00 Heparin Sodium (Porcine) (Heparin (5000 Units/0.5 ml)) 5,000 unit Q8 SC Last administered on 09/01/17 05:26; Admin Dose 5,000 UNIT; Start 08/27/17 at 06:00 ; Status Future Hold Acetaminophen/ Hydrocodone Bitart 1 tab 1 tab Q4H PRN PO Pain Last administered on 09/01/17 17:55; Admin Dose 1 TAB; Start 08/28/17 at 10:30; Status Future Hold Cefepime HCl (Maxipime 1gm/50 ml (Pmx)) 50 ml @ 100 mls/hr Q12 IVPB Last administered on 09/06/17 09:38; Admin Dose 100 MLS/HR; Start 08/30/17 at 11: 00 Cyanocobalamin (Vitamin B12 Inj) 1,000 mcg DAILY IM Last administered on 09:39; Admin Dose 1,000 MCG; Start 08/30/17 at 12:00 Morphine Sulfate 2 mg 2 mg Q4H PRN IV pain Last administered on 09/06/17 11: 42; Admin Dose 2 MG; Start 09/01/17 at 09:30 Sodium Chloride (1/2 NS) 1,000 ml @ 100 mls/hr Q10H IV Last administered on 10:09; Admin Dose 100 MLS/HR; Start 09/02/17 at 21:56 Acetaminophen/ Hydrocodone Bitart ([place] (5/325)) 1 tab Q4H PRN PO PAIN LEVEL 1 -5; Start 09/02/17 at 22:00; Status Future Hold Acetaminophen/ Hydrocodone Bitart ([place] (5/325)) 2 tab Q4H PRN PO PAIN LEVEL 6 -10 Last administered on 09/04/17 10:05; Admin Dose 2 TAB; Start 09/02/17 at 22:00; Status Future Hold Zolpidem Tartrate (Ambien) 5 mg HS PRN PO INSOMNIA; Start 09/02/17 at 22:00 Al Hydrox/Mg Hydrox/Simethicone (Mag-Al Plus) 15 ml Q4H PRN PO CONSTIPATION; Start 09/02/17 at 22:00 Docusate Sodium (Colace) 100 mg BID PO Last administered on 09/06/17 09:39; Admin Dose 100 MG; Start 09/03/17 at 09:00 Ferrous Sulfate (Ferrous Sulfate (Ec)) 325 mg TID PO Last administered on 09/06 15:22; Admin Dose 325 MG; Start 09/03/17 at 09:00 Diazepam (Valium) 5 mg Q4H PRN PO MUSCLE SPASMS Last administered on 15:26; Admin Dose 5 MG; Start 09/02/17 at 22:00 Phenol (Cepastat Lozenge) 1 lozenge PRN PRN MT SORE THROAT; Start 09/02/17 at 22:00 Bethanechol Chloride (Urecholine) 25 mg PRN PRN PO UNABLE TO VOID Last administered on 09/03/17 08:57; Admin Dose 25 MG; Start 09/02/17 at 22:00 Diphenhydramine HCl (Benadryl) 50 mg Q6H PRN PO PRURITUS; Start 09/02/17 at 22 :00 Morphine Sulfate (morphine) 1 mg Q4PCA IV Last administered on 09/03/17 07:02 ; Admin Dose 30 MG; Start 09/02/17 at 22:00 Naloxone HCl 0.2 mg 0.2 mg Q2M PRN IV RR 8 BREATHS/MIN OR LESS; Start at 22:00 Acetaminophen 100 ml @ 400 mls/hr Q6H IVPB Last administered on 09/06/17 11: 41; Admin Dose 400 MLS/HR; Start 09/04/17 at 10:30 Vancomycin HCl (Vancocin) 250 ml @ 125 mls/hr Q8H IVPB Last administered on 10:13; Admin Dose 125 MLS/HR; Start 09/05/17 at 18:00 Dexamethasone (Decadron) 1 mg BID PO ; Start 09/06/17 at 21:00; Stop 09/07/17 at 20:59; Status UNV Dexamethasone (Decadron) 1 mg ONCE ONCE PO ; Start 09/07/17 at 17:30; Stop at 17:31; Status UNV HARJIT BANEGAS MD Sep 06, 2017 17:12
[2017-09-06 20:09] VITALS: BP 120/71; RESP 20
[2017-09-06] MEDS: DEXAMETHASONE 1 MG TAB PO SCH (21:01)
[2017-09-07] MEDS: SOD CHLORIDE 0.45% 1,000 ML IV SCH ×3 (02:15→21:11)
[2017-09-07] MEDS: VANCOMYCIN 1 GM in NS 250 ML IVPB SCH ×3 (02:15→18:27)
[2017-09-07 02:16] VITALS: BP 100/56; RESP 18
[2017-09-07] MEDS: morphine 2 MG INJ IV PRN ×4 (02:55→21:36)
[2017-09-07] MEDS: PANTOPRAZOLE (EC) 40 MG TAB PO SCH (04:44)
[2017-09-07] MEDS: ACETAMINOPHEN 1000MG/100ML IV 100 ML IVPB SCH ×4 (04:44→22:45)
[2017-09-07 07:47] VITALS: BP 127/80; RESP 20
[2017-09-07] MEDS: CEFEPIME 1GM/50 ML (PMX) 50 ML IVPB SCH ×2 (09:16→21:00)
[2017-09-07] MEDS: DEXAMETHASONE 1 MG TAB PO SCH (09:17)
[2017-09-07] MEDS: CYANOCOBALAMIN 1000 MCG INJ IM SCH (09:17)
[2017-09-07] MEDS: FERROUS SULFATE (EC) 325 MG TAB PO SCH ×3 (09:17→21:00)
[2017-09-07] MEDS: DOCUSATE SODIUM 100 MG CAP PO SCH ×2 (09:17→21:00)
--- NOTE | 2017-09-07 12:35 | CONS ---
Date/Time of Note Date/Time of Note DATE: 09/07/17 TIME: 12:32 Consult Date/Type/Reason Admit Date/Time Aug 27, 2017 at 04:53 Initial Consult Date 08/27/17 Type of Consultation: ID Ordering Provider: HEIDI RASHEED DIRECTOR OF [employer]ATE[employer]IC COMM[employer]ICATIONS Objective Vital Signs Date Time Temp Pulse Resp B/P Pulse Ox O2 Delivery O2 Flow Rate FiO2 09/07/17 07:47 97.4 89 20 127/80 97 09/04/17 08:00 Nasal Cannula Intake and Output 09/06/17 09/06/17 09/07/17 15:00 23:00 07:00 Intake Total 1000 ml 1960 ml 900 ml Output Total 1590 ml 2000 ml Balance 1000 ml 370 ml -1100 ml Results/Medications Result Diagram: 09/06/17 0456 09/06/17 0456 Medications Current Medications Ondansetron HCl (Zofran Inj) 4 mg Q6H PRN IV NAUSEA AND/OR VOMITING; Start 08/27/17 at 06:00 Acetaminophen (Tylenol Tab) 650 mg Q6H PRN PO PAIN LEVEL 1-3 OR FEVER Last administered on 08/27/17 21:04; Admin Dose 650 MG; Start 08/27/17 at 06:00; Status Future Hold Pantoprazole (Protonix Tab) 40 mg DAILY@06 PO Last administered on 09/07/17 04:44; Admin Dose 40 MG; Start 08/27/17 at 06:00 Heparin Sodium (Porcine) (Heparin (5000 Units/0.5 ml)) 5,000 unit Q8 SC Last administered on 09/01/17 05:26; Admin Dose 5,000 UNIT; Start 08/27/17 at 06:00 ; Status Future Hold Acetaminophen/ Hydrocodone Bitart 1 tab 1 tab Q4H PRN PO Pain Last administered on 09/01/17 17:55; Admin Dose 1 TAB; Start 08/28/17 at 10:30; Status Future Hold Cefepime HCl (Maxipime 1gm/50 ml (Pmx)) 50 ml @ 100 mls/hr Q12 IVPB Last administered on 09/07/17 09:16; Admin Dose 100 MLS/HR; Start 08/30/17 at 11: 00 Cyanocobalamin (Vitamin B12 Inj) 1,000 mcg DAILY IM Last administered on 09:17; Admin Dose 1,000 MCG; Start 08/30/17 at 12:00 Morphine Sulfate 2 mg 2 mg Q4H PRN IV pain Last administered on 09/07/17 07: 05; Admin Dose 2 MG; Start 09/01/17 at 09:30 Sodium Chloride (1/2 NS) 1,000 ml @ 100 mls/hr Q10H IV Last administered on 02:15; Admin Dose 100 MLS/HR; Start 09/02/17 at 21:56 Acetaminophen/ Hydrocodone Bitart ([place] (5/325)) 1 tab Q4H PRN PO PAIN LEVEL 1 -5; Start 09/02/17 at 22:00; Status Future Hold Acetaminophen/ Hydrocodone Bitart ([place] (5/325)) 2 tab Q4H PRN PO PAIN LEVEL 6 -10 Last administered on 09/04/17 10:05; Admin Dose 2 TAB; Start 09/02/17 at 22:00; Status Future Hold Zolpidem Tartrate (Ambien) 5 mg HS PRN PO INSOMNIA; Start 09/02/17 at 22:00 Al Hydrox/Mg Hydrox/Simethicone (Mag-Al Plus) 15 ml Q4H PRN PO CONSTIPATION; Start 09/02/17 at 22:00 Docusate Sodium (Colace) 100 mg BID PO Last administered on 09/07/17 09:17; Admin Dose 100 MG; Start 09/03/17 at 09:00 Ferrous Sulfate (Ferrous Sulfate (Ec)) 325 mg TID PO Last administered on 09/07 09:17; Admin Dose 325 MG; Start 09/03/17 at 09:00 Diazepam (Valium) 5 mg Q4H PRN PO MUSCLE SPASMS Last administered on 15:26; Admin Dose 5 MG; Start 09/02/17 at 22:00 Phenol (Cepastat Lozenge) 1 lozenge PRN PRN MT SORE THROAT; Start 09/02/17 at 22:00 Bethanechol Chloride (Urecholine) 25 mg PRN PRN PO UNABLE TO VOID Last administered on 09/03/17 08:57; Admin Dose 25 MG; Start 09/02/17 at 22:00 Diphenhydramine HCl (Benadryl) 50 mg Q6H PRN PO PRURITUS; Start 09/02/17 at 22 :00 Morphine Sulfate (morphine) 1 mg Q4PCA IV Last administered on 09/03/17 07:02 ; Admin Dose 30 MG; Start 09/02/17 at 22:00 Naloxone HCl 0.2 mg 0.2 mg Q2M PRN IV RR 8 BREATHS/MIN OR LESS; Start at 22:00 Acetaminophen 100 ml @ 400 mls/hr Q6H IVPB Last administered on 09/07/17 10: 05; Admin Dose 400 MLS/HR; Start 09/04/17 at 10:30 Vancomycin HCl (Vancocin) 250 ml @ 125 mls/hr Q8H IVPB Last administered on 10:29; Admin Dose 125 MLS/HR; Start 09/05/17 at 18:00 Dexamethasone (Decadron) 1 mg BID PO Last administered on 09/07/17 09:17; Admin Dose 1 MG; Start 09/06/17 at 21:00; Stop 09/07/17 at 20:59 Dexamethasone (Decadron) 1 mg ONCE ONCE PO ; Start 09/07/17 at 17:30; Stop at 17:31 Miscellaneous Information (*Rx Drug Level Order Reminder*) VANCOMYCIN TROUGH AT 0900 ONCE ONCE XX ; Start 09/08/17 at 09:00; Stop 09/08/17 at 09:01 Assessment/Plan Chief Complaint/Hosp Course SUBJECTIVE: No acute changes overnight, no fevers. The patient is alert, looks comfortable. No fevers ANTIMICROBIALS: 1. Vancomycin. 2. Cefepime. INDWELLINGS: PICC line. PHYSICAL EXAMINATION: GENERAL: Well-developed, middle-aged man who is alert, in no distress. HEENT: Head atraumatic, normocephalic. Sclerae anicteric. Buccal mucosa pink. NECK: Supple. CHEST: Rise symmetrical. Breath sounds diminished CTA. HEART: S1, S2. ABDOMEN: Soft. Bowel tones present. EXTREMITIES: Without cyanosis. ASSESSMENT: 1. Abnormal C-spine MRI with concern of septic versus inflammatory arthritis, patient remains on broad spectrum antibiotics. 2. Leukocytosis secondary to Decadron. 3. Thoracic stenosis and paraparesis status post T9-11 laminectomy, arthrodesis , bilateral pedical screw instrumentation on 09/02/2017. 4. Cerebral palsy. PLAN: The patient remains stable, covered with appropriate antimicrobials which we will continue for 6 weeks total. Consider SNF. Follow neurosurgery recommendations. DW staff Problems: VIRIDIANA DESAI NP Sep 07, 2017 12:35
--- NOTE | 2017-09-07 15:08 | PN ---
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 Status post T9 - T11 laminectomy, T9 -T11 arthrodesis, and T9-T11 bilateral pedicle screw instrumentation on 09/02/2017. Continue physical therapy. Continue tapering dose of steroids. 2. Abnormal bone marrow signal with surrounding soft tissue edema involving the left C3-C4 facet joint; increased joint effusion and small focus of probable erosion involving the left inferior articular facet of C3, findings concerning for septic/inflammatory arthritis. Cervical spine MRI showing small amount of enhancing soft tissue likely a phlegmon around the left facet joint extending into the left neural foramen. The patient on antimicrobials as per infectious diseases. 3. Cerebral palsy. Continue supportive care. 4. Leucocytosisl due to setroids 5. DVT prophylaxis. Bilateral SCDs. 6. Plan. D/c IVF, stright in and out catheter for urinary retention, IV abx cefepime and Vanocmycin as per ID. Steroid tapering as per neurosurgery. Continue physical therapy. Case management consult for SNF placement Subjective 24 Hr Interval Summary Free Text/Dictation pt had urinary retention ,ordered to have straight in and out, BP stable, Exam/Review of Systems Vital Signs Vitals Vital Signs Date Time Temp Pulse Resp B/P Pulse Ox O2 Delivery O2 Flow Rate FiO2 09/07/17 07:47 97.4 89 20 127/80 97 09/04/17 08:00 Nasal Cannula Intake and Output 09/06/17 09/06/17 09/07/17 15:00 23:00 07:00 Intake Total 1000 ml 1960 ml 900 ml Output Total 1590 ml 2000 ml Balance 1000 ml 370 ml -1100 ml Exam Constitutional: VSS, NAD HEENT: Unremarkable Neck: Supple, full ROM Respiratory: Equal chest rise bilaterally, without dyspnea on observation Cardiovascular: nl pulse Gastrointestinal: Soft, NT Extremities: Warm Neurological: Lethargic Results Result Diagram: 09/06/17 0456 09/06/17 045 Medications Medications Current Medications Ondansetron HCl (Zofran Inj) 4 mg Q6H PRN IV NAUSEA AND/OR VOMITING; Start 08/27/17 at 06:00 Acetaminophen (Tylenol Tab) 650 mg Q6H PRN PO PAIN LEVEL 1-3 OR FEVER Last administered on 08/27/17 21:04; Admin Dose 650 MG; Start 08/27/17 at 06:00; Status Future Hold Pantoprazole (Protonix Tab) 40 mg DAILY@06 PO Last administered on 09/07/17 04:44; Admin Dose 40 MG; Start 08/27/17 at 06:00 Heparin Sodium (Porcine) (Heparin (5000 Units/0.5 ml)) 5,000 unit Q8 SC Last administered on 09/01/17 05:26; Admin Dose 5,000 UNIT; Start 08/27/17 at 06:00 ; Status Future Hold Acetaminophen/ Hydrocodone Bitart 1 tab 1 tab Q4H PRN PO Pain Last administered on 09/01/17 17:55; Admin Dose 1 TAB; Start 08/28/17 at 10:30; Status Future Hold Cefepime HCl (Maxipime 1gm/50 ml (Pmx)) 50 ml @ 100 mls/hr Q12 IVPB Last administered on 09/07/17 09:16; Admin Dose 100 MLS/HR; Start 08/30/17 at 11: 00 Cyanocobalamin (Vitamin B12 Inj) 1,000 mcg DAILY IM Last administered on 09:17; Admin Dose 1,000 MCG; Start 08/30/17 at 12:00 Morphine Sulfate 2 mg 2 mg Q4H PRN IV pain Last administered on 09/07/17 07: 05; Admin Dose 2 MG; Start 09/01/17 at 09:30 Sodium Chloride (1/2 NS) 1,000 ml @ 100 mls/hr Q10H IV Last administered on 02:15; Admin Dose 100 MLS/HR; Start 09/02/17 at 21:56 Acetaminophen/ Hydrocodone Bitart ([place] (5/325)) 1 tab Q4H PRN PO PAIN LEVEL 1 -5; Start 09/02/17 at 22:00; Status Future Hold Acetaminophen/ Hydrocodone Bitart ([place] (5/325)) 2 tab Q4H PRN PO PAIN LEVEL 6 -10 Last administered on 09/04/17 10:05; Admin Dose 2 TAB; Start 09/02/17 at 22:00; Status Future Hold Zolpidem Tartrate (Ambien) 5 mg HS PRN PO INSOMNIA; Start 09/02/17 at 22:00 Al Hydrox/Mg Hydrox/Simethicone (Mag-Al Plus) 15 ml Q4H PRN PO CONSTIPATION; Start 09/02/17 at 22:00 Docusate Sodium (Colace) 100 mg BID PO Last administered on 09/07/17 09:17; Admin Dose 100 MG; Start 09/03/17 at 09:00 Ferrous Sulfate (Ferrous Sulfate (Ec)) 325 mg TID PO Last administered on 09/07 14:06; Admin Dose 325 MG; Start 09/03/17 at 09:00 Diazepam (Valium) 5 mg Q4H PRN PO MUSCLE SPASMS Last administered on 15:26; Admin Dose 5 MG; Start 09/02/17 at 22:00 Phenol (Cepastat Lozenge) 1 lozenge PRN PRN MT SORE THROAT; Start 09/02/17 at 22:00 Bethanechol Chloride (Urecholine) 25 mg PRN PRN PO UNABLE TO VOID Last administered on 09/03/17 08:57; Admin Dose 25 MG; Start 09/02/17 at 22:00 Diphenhydramine HCl (Benadryl) 50 mg Q6H PRN PO PRURITUS; Start 09/02/17 at 22 :00 Morphine Sulfate (morphine) 1 mg Q4PCA IV Last administered on 09/03/17 07:02 ; Admin Dose 30 MG; Start 09/02/17 at 22:00 Naloxone HCl 0.2 mg 0.2 mg Q2M PRN IV RR 8 BREATHS/MIN OR LESS; Start at 22:00 Acetaminophen 100 ml @ 400 mls/hr Q6H IVPB Last administered on 09/07/17 10: 05; Admin Dose 400 MLS/HR; Start 09/04/17 at 10:30 Vancomycin HCl (Vancocin) 250 ml @ 125 mls/hr Q8H IVPB Last administered on 10:29; Admin Dose 125 MLS/HR; Start 09/05/17 at 18:00 Dexamethasone (Decadron) 1 mg BID PO Last administered on 09/07/17t 09:17; Admin Dose 1 MG; Start 09/06/17 at 21:00; Stop 09/07/17 at 20:59 Dexamethasone (Decadron) 1 mg ONCE ONCE PO ; Start 09/07/17 at 17:30; Stop at 17:31 Miscellaneous Information (*Rx Drug Level Order Reminder*) VANCOMYCIN TROUGH AT 0900 ONCE ONCE XX ; Start 09/08/17 at 09:00; Stop 09/08/17 at 09:01 LORENA GONZALEZ MD Sep 07, 2017 15:08
[2017-09-07 15:10] VITALS: BP 120/72; RESP 18
[2017-09-07] MEDS ORDERED: DEXAMETHASONE 1 MG TAB PO ONE (17:30)
[2017-09-07 18:56] LABS: ADD UMIC YES; UR ASCORBIC ACID NEGATIVE (NEGATIVE); UR BILIRUBIN (Dip) NEGATIVE (NEGATIVE); UR BLOOD (Dip) 1+ mg/dL (NEGATIVE); UR CLARITY CLEAR (CLEAR); UR COLOR YELLOW (YELLOW); UR GLUCOSE (Dip) NEGATIVE (NEGATIVE); UR KETONES (Dip) NEGATIVE (NEGATIVE); UR LEUKOCYTE ESTERASE (Dip) NEGATIVE Leu/ul (NEGATIVE); UR NITRITE (Dip) NEGATIVE (NEGATIVE); UR RBC 1 /HPF (0-5); UR SPECIFIC GRAVITY (Dip) 1.013 (1.003-1.030); UR TOTAL PROTEIN (Dip) NEGATIVE (NEGATIVE); UR UROBILINOGEN (Dip) NEGATIVE (NEGATIVE)
[2017-09-07 20:02] VITALS: BP 114/59; RESP 20
--- NOTE | 2017-09-07 22:18 | RADRPT ---
PROCEDURE: US Bladder. CLINICAL INDICATION: Urinary retention. TECHNIQUE: Multiple sonographic of the bladder were obtained in the pre-void and postvoid phases. The images were reviewed on a PACS workstation. COMPARISON: No prior studies are available for comparison. FINDINGS: The bladder is normal. There is no calculus or mass. The pre-void volume is 170 cc. The post void volume is 159 cc. IMPRESSION: 1. Large postvoid residual in the bladder measuring 159 cc. RPTAT: QQ .Raman Bonilla MD, MD Date Time Electronically viewed and signed by .Raman Bonilla MD, MD on 09/07/2017 22:18 .R/
[2017-09-08 02:13] VITALS: BP 115/73; RESP 20
[2017-09-08] MEDS: VANCOMYCIN 1 GM in NS 250 ML IVPB SCH ×3 (02:18→11:18)
[2017-09-08] MEDS: ACETAMINOPHEN 1000MG/100ML IV 100 ML IVPB SCH ×3 (04:21→15:59)
[2017-09-08 05:49] LABS: BASOPHILS % 0.2 % (0.0-2.0); EOSINOPHILS # 0.2 10^3/ul (0.0-0.5); EOSINOPHILS % 1.5 % (0.0-7.0); HEMOGLOBIN 11.1 g/dl (14.0-18.0); LYMPHOCYTES # 1.8 10^3/ul (0.8-2.9); LYMPHOCYTES % 13.5 % (15.0-51.0); MEAN CORPUSCULAR HEMOGLOBIN 32.6 pg (29.0-33.0); MEAN CORPUSCULAR HGB CONC 33.6 g/dl (32.0-37.0); MEAN CORPUSCULAR VOLUME 97.1 fl (82.0-101.0); MEAN PLATELET VOLUME 11.1 fl (7.4-10.4); MONOCYTE # 1.2 10^3/ul (0.3-0.9); MONOCYTES % 9.4 % (0.0-11.0); NEUTROPHIL # 9.6 10^3/ul (1.6-7.5); NEUTROPHILS % 73.8 % (39.0-77.0); PLATELET COUNT 179 10^3/UL (140-415); RED CELL DISTRIBUTION WIDTH 14.3 % (11.5-14.5)
[2017-09-08 05:58] LABS: INR 1.13; PROTIME 14.5 Sec (12.2-14.2); PT RATIO 1.1
[2017-09-08] MEDS: PANTOPRAZOLE (EC) 40 MG TAB PO SCH (06:00)
[2017-09-08 06:08] LABS: ALBUMIN 2.5 g/dl (3.3-4.9); ALBUMIN/GLOBULIN RATIO 0.96; BILIRUBIN,INDIRECT 0.3 mg/dl (0-1.1); BILIRUBIN,TOTAL 0.3 mg/dl (0.2-1.3); CALCIUM 7.5 mg/dl (8.4-10.2); CREATININE 0.52 mg/dl (0.61-1.24); POTASSIUM 3.9 mmol/L (3.5-5.1); TOTAL PROTEIN 5.1 g/dl (6.1-8.1)
[2017-09-08 08:02] VITALS: BP 118/67; RESP 20
[2017-09-08] MEDS: CEFEPIME 1GM/50 ML (PMX) 50 ML IVPB SCH ×3 (09:36→22:32)
[2017-09-08] MEDS: DOCUSATE SODIUM 100 MG CAP PO SCH ×2 (09:36→21:59)
[2017-09-08] MEDS: CYANOCOBALAMIN 1000 MCG INJ IM SCH (09:36)
[2017-09-08] MEDS: FERROUS SULFATE (EC) 325 MG TAB PO SCH ×3 (09:36→21:59)
[2017-09-08] MEDS: SOD CHLORIDE 0.45% 1,000 ML IV SCH (10:09)
--- NOTE | 2017-09-08 13:39 | CONS ---
Date/Time of Note Date/Time of Note DATE: 09/08/17 TIME: 13:38 Consult Date/Type/Reason Admit Date/Time Aug 27, 2017 at 04:53 Initial Consult Date 08/27/17 Type of Consultation: ID Ordering Provider: HEIDI RASHEED HOUSE PARENT Objective Vital Signs Date Time Temp Pulse Resp B/P Pulse Ox O2 Delivery O2 Flow Rate FiO2 09/08/17 08:02 98.0 90 20 118/67 94 09/04/17 08:00 Nasal Cannula Intake and Output 09/07/17 09/07/17 09/08/17 15:00 23:00 07:00 Intake Total 400 ml 1830 ml 2650 ml Output Total 2700 ml Balance 400 ml -870 ml 2650 ml Results/Medications Result Diagram: 09/08/17 0506 09/08/17 0506 Results 24 hrs Laboratory Tests Test 09/07/17 16:40 09/08/17 05:06 09/08/17 10:23 Urine Color YELLOW Urine Clarity CLEAR Urine pH 5.0 Urine Specific [place] 1.013 Urine Ketones NEGATIVE Urine Nitrite NEGATIVE Urine Bilirubin NEGATIVE Urine Urobilinogen NEGATIVE Urine Leukocyte Esterase NEGATIVE Urine Microscopic RBC 1 Urine Microscopic WBC 1 Urine Hemoglobin 1+ H Urine Glucose NEGATIVE Urine Total Protein NEGATIVE White Blood Count 13.0 H Red Blood Count 3.40 L Hemoglobin 11.1 L Hematocrit 33.0 L Mean Corpuscular Volume 97.1 Mean Corpuscular Hemoglobin 32.6 Mean Corpuscular Hemoglobin Concent 33.6 Red Cell Distribution Width 14.3 Platelet Count 179 Mean Platelet Volume 11.1 H Neutrophils % 73.8 Lymphocytes % 13.5 L Monocytes % 9.4 Eosinophils % 1.5 Basophils % 0.2 Nucleated Red Blood Cells % 0.0 Neutrophils # 9.6 H Lymphocytes # 1.8 Monocytes # 1.2 H Eosinophils # 0.2 Basophils # 0.0 Nucleated Red Blood Cells # 0.0 Prothrombin Time 14.5 H Prothrombin Time Ratio 1.1 INR International Normalized Ratio 1.13 Activated Partial Thromboplast Time 32.0 Sodium Level 139 Potassium Level 3.9 Chloride Level 109 Carbon Dioxide Level 25 Anion Gap 9 Blood Urea Nitrogen 11 Creatinine 0.52 L Glucose Level 94 Calcium Level 7.5 L Total Bilirubin 0.3 Direct Bilirubin 0.00 Indirect Bilirubin 0.3 Aspartate Amino Transf (AST/SGOT) 31 Alanine Aminotransferase (ALT/SGPT) 77 H Alkaline Phosphatase 54 Total Protein 5.1 L Albumin 2.5 L Globulin 2.60 Albumin/Globulin Ratio 0.96 Vancomycin Level Trough 7.6 L Medications Current Medications Ondansetron HCl (Zofran Inj) 4 mg Q6H PRN IV NAUSEA AND/OR VOMITING; Start 08/27/17 at 06:00 Acetaminophen (Tylenol Tab) 650 mg Q6H PRN PO PAIN LEVEL 1-3 OR FEVER Last administered on 08/27/17 21:04; Admin Dose 650 MG; Start 08/27/17 at 06:00; Status Future Hold Pantoprazole (Protonix Tab) 40 mg DAILY@06 PO Last administered on 09/08/17 06:00; Admin Dose 40 MG; Start 08/27/17 at 06:00 Heparin Sodium (Porcine) (Heparin (5000 Units/0.5 ml)) 5,000 unit Q8 SC Last administered on 09/01/17 05:26; Admin Dose 5,000 UNIT; Start 08/27/17 at 06:00 ; Status Future Hold Acetaminophen/ Hydrocodone Bitart 1 tab 1 tab Q4H PRN PO Pain Last administered on 09/01/17 17:55; Admin Dose 1 TAB; Start 08/28/17 at 10:30; Status Future Hold Cefepime HCl (Maxipime 1gm/50 ml (Pmx)) 50 ml @ 100 mls/hr Q12 IVPB Last administered on 09/08/17 09:36; Admin Dose 100 MLS/HR; Start 08/30/17 at 11: 00 Cyanocobalamin (Vitamin B12 Inj) 1,000 mcg DAILY IM Last administered on 09:36; Admin Dose 1,000 MCG; Start 08/30/17 at 12:00 Morphine Sulfate 2 mg 2 mg Q4H PRN IV pain Last administered on 09/07/17 21: 36; Admin Dose 2 MG; Start 09/01/17 at 09:30 Sodium Chloride (1/2 NS) 1,000 ml @ 100 mls/hr Q10H IV Last administered on 10:09; Admin Dose 100 MLS/HR; Start 09/02/17 at 21:56 Acetaminophen/ Hydrocodone Bitart ([place] (5/325)) 1 tab Q4H PRN PO PAIN LEVEL 1 -5; Start 09/02/17 at 22:00; Status Future Hold Acetaminophen/ Hydrocodone Bitart ([place] (5/325)) 2 tab Q4H PRN PO PAIN LEVEL 6 -10 Last administered on 09/04/17 10:05; Admin Dose 2 TAB; Start 09/02/17 at 22:00; Status Future Hold Zolpidem Tartrate (Ambien) 5 mg HS PRN PO INSOMNIA; Start 09/02/17 at 22:00 Al Hydrox/Mg Hydrox/Simethicone (Mag-Al Plus) 15 ml Q4H PRN PO CONSTIPATION; Start 09/02/17 at 22:00 Docusate Sodium (Colace) 100 mg BID PO Last administered on 09/08/17 09:36; Admin Dose 100 MG; Start 09/03/17 at 09:00 Ferrous Sulfate (Ferrous Sulfate (Ec)) 325 mg TID PO Last administered on 09/08 13:18; Admin Dose 325 MG; Start 09/03/17 at 09:00 Diazepam (Valium) 5 mg Q4H PRN PO MUSCLE SPASMS Last administered on 15:26; Admin Dose 5 MG; Start 09/02/17 at 22:00 Phenol (Cepastat Lozenge) 1 lozenge PRN PRN MT SORE THROAT; Start 09/02/17 at 22:00 Bethanechol Chloride (Urecholine) 25 mg PRN PRN PO UNABLE TO VOID Last administered on 09/03/17 08:57; Admin Dose 25 MG; Start 09/02/17 at 22:00 Diphenhydramine HCl (Benadryl) 50 mg Q6H PRN PO PRURITUS; Start 09/02/17 at 22 :00 Morphine Sulfate (morphine) 1 mg Q4PCA IV Last administered on 09/03/17 07:02 ; Admin Dose 30 MG; Start 09/02/17 at 22:00 Naloxone HCl 0.2 mg 0.2 mg Q2M PRN IV RR 8 BREATHS/MIN OR LESS; Start at 22:00 Acetaminophen 100 ml @ 400 mls/hr Q6H IVPB Last administered on 09/08/17 10: 36; Admin Dose 400 MLS/HR; Start 09/04/17 at 10:30 Vancomycin HCl/ Sodium Chloride (Vancocin/NS) 250 ml @ 83.333 mls/ hr Q8H IVPB ; Start 09/08/17 at 18:00 Assessment/Plan Chief Complaint/Hosp Course SUBJECTIVE: No acute changes overnight, no fevers. The patient is alert, looks comfortable. No fevers ANTIMICROBIALS: 1. Vancomycin. 2. Cefepime. INDWELLINGS: PICC line. PHYSICAL EXAMINATION: GENERAL: Well-developed, middle-aged man who is alert, in no distress. HEENT: Head atraumatic, normocephalic. Sclerae anicteric. Buccal mucosa pink. NECK: Supple. CHEST: Rise symmetrical. Breath sounds diminished CTA. HEART: S1, S2. ABDOMEN: Soft. Bowel tones present. EXTREMITIES: Without cyanosis. ASSESSMENT: 1. Abnormal C-spine MRI with concern of septic versus inflammatory arthritis, patient remains on broad spectrum antibiotics. 2. Leukocytosis secondary to Decadron. 3. Thoracic stenosis and paraparesis status post T9-11 laminectomy, arthrodesis , bilateral pedical screw instrumentation on 09/02/2017. 4. Cerebral palsy. PLAN: The patient remains stable, covered with appropriate antimicrobials which we will continue for 6 weeks total. Consider SNF. Follow neurosurgery recommendations. Pharmacy to adjust Vanco dose for subtherapeutic level DW staff Problems: VIRIDIANA DESAI NP Sep 08, 2017 13:39
[2017-09-08] MEDS: morphine 2 MG INJ IV PRN (14:09)
[2017-09-08 14:26] VITALS: BP 150/82; RESP 18
--- NOTE | 2017-09-08 17:37 | PN ---
Date/Time of Note Date/Time of Note DATE: 09/08/17 TIME: 17:36 Assessment/Plan VTE Prophylaxis VTE Prophylaxis Intervention: SCD's Lines/Catheters IV Catheter Type (from Nrs): PICC Line Central line still needed: Yes (exterminator termite IV abx for OM/diskitis of C spine ) Urinary Cath still in place: No Assessment/Plan Assessment/Plan 1. 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 Status post T9 - T11 laminectomy, T9 -T11 arthrodesis, and T9-T11 bilateral pedicle screw instrumentation on 09/02/2017. Continue physical therapy. Continue tapering dose of steroids. 2. Abnormal bone marrow signal with surrounding soft tissue edema involving the left C3-C4 facet joint; increased joint effusion and small focus of probable erosion involving the left inferior articular facet of C3, findings concerning for septic/inflammatory arthritis. Cervical spine MRI showing small amount of enhancing soft tissue likely a phlegmon around the left facet joint extending into the left neural foramen. The patient on antimicrobials as per infectious diseases. 3. Cerebral palsy. Continue supportive care. 4. Leucocytosisl due to setroids 5. DVT prophylaxis. Bilateral SCDs. 6. Plan. hep loc IV, stright in and out catheter for urinary retention, IV abx cefepime and Vanocmycin as per ID. Steroid tapering as per neurosurgery. Continue physical therapy. Case management consult for SNF placement Subjective 24 Hr Interval Summary Free Text/Dictation doing ok, BP stable, afebrile Exam/Review of Systems Vital Signs Vitals Vital Signs Date Time Temp Pulse Resp B/P Pulse Ox O2 Delivery O2 Flow Rate FiO2 09/08/17 14:26 97.8 111 18 150/82 90 09/04/17 08:00 Nasal Cannula Intake and Output 09/07/17 09/07/17 09/08/17 15:00 23:00 07:00 Intake Total 400 ml 1830 ml 2650 ml Output Total 2700 ml Balance 400 ml -870 ml 2650 ml Exam Constitutional: VSS, NAD HEENT: Unremarkable Neck: Supple, full ROM Respiratory: Equal chest rise bilaterally, without dyspnea on observation Cardiovascular: nl pulse Gastrointestinal: Soft, NT Extremities: Warm Neurological: awake, alert Results Result Diagram: 09/08/17 0506 09/08/17 0506 Results 24 hrs Laboratory Tests Test 09/08/17 05:06 09/08/17 10:23 White Blood Count 13.0 H Red Blood Count 3.40 L Hemoglobin 11.1 L Hematocrit 33.0 L Mean Corpuscular Volume 97.1 Mean Corpuscular Hemoglobin 32.6 Mean Corpuscular Hemoglobin Concent 33.6 Red Cell Distribution Width 14.3 Platelet Count 179 Mean Platelet Volume 11.1 H Neutrophils % 73.8 Lymphocytes % 13.5 L Monocytes % 9.4 Eosinophils % 1.5 Basophils % 0.2 Nucleated Red Blood Cells % 0.0 Neutrophils # 9.6 H Lymphocytes # 1.8 Monocytes # 1.2 H Eosinophils # 0.2 Basophils # 0.0 Nucleated Red Blood Cells # 0.0 Prothrombin Time 14.5 H Prothrombin Time Ratio 1.1 INR International Normalized Ratio 1.13 Activated Partial Thromboplast Time 32.0 Sodium Level 139 Potassium Level 3.9 Chloride Level 109 Carbon Dioxide Level 25 Anion Gap 9 Blood Urea Nitrogen 11 Creatinine 0.52 L Glucose Level 94 Calcium Level 7.5 L Total Bilirubin 0.3 Direct Bilirubin 0.00 Indirect Bilirubin 0.3 Aspartate Amino Transf (AST/SGOT) 31 Alanine Aminotransferase (ALT/SGPT) 77 H Alkaline Phosphatase 54 Total Protein 5.1 L Albumin 2.5 L Globulin 2.60 Albumin/Globulin Ratio 0.96 Vancomycin Level Trough 7.6 L Medications Medications Current Medications Ondansetron HCl (Zofran Inj) 4 mg Q6H PRN IV NAUSEA AND/OR VOMITING; Start 08/27/17 at 06:00 Acetaminophen (Tylenol Tab) 650 mg Q6H PRN PO PAIN LEVEL 1-3 OR FEVER Last administered on 08/27/17 21:04; Admin Dose 650 MG; Start 08/27/17 at 06:00; Status Future Hold Pantoprazole (Protonix Tab) 40 mg DAILY@06 PO Last administered on 09/08/17 06:00; Admin Dose 40 MG; Start 08/27/17 at 06:00 Heparin Sodium (Porcine) (Heparin (5000 Units/0.5 ml)) 5,000 unit Q8 SC Last administered on 09/01/17 05:26; Admin Dose 5,000 UNIT; Start 08/27/17 at 06:00 ; Status Future Hold Acetaminophen/ Hydrocodone Bitart 1 tab 1 tab Q4H PRN PO Pain Last administered on 09/01/17 17:55; Admin Dose 1 TAB; Start 08/28/17 at 10:30; Status Future Hold Cefepime HCl (Maxipime 1gm/50 ml (Pmx)) 50 ml @ 100 mls/hr Q12 IVPB Last administered on 09/08/17 09:36; Admin Dose 100 MLS/HR; Start 08/30/17 at 11: 00 Cyanocobalamin (Vitamin B12 Inj) 1,000 mcg DAILY IM Last administered on 09:36; Admin Dose 1,000 MCG; Start 08/30/17 at 12:00 Morphine Sulfate (morphine) 2 mg Q4H PRN IV pain Last administered on 14:09; Admin Dose 2 MG; Start 09/01/17 at 09:30 Acetaminophen/ Hydrocodone Bitart ([place] (5/325)) 1 tab Q4H PRN PO PAIN LEVEL 1 -5; Start 09/02/17 at 22:00; Status Future Hold Acetaminophen/ Hydrocodone Bitart ([place] (5/325)) 2 tab Q4H PRN PO PAIN LEVEL 6 -10 Last administered on 09/04/17 10:05; Admin Dose 2 TAB; Start 09/02/17 at 22:00; Status Future Hold Zolpidem Tartrate (Ambien) 5 mg HS PRN PO INSOMNIA; Start 09/02/17 at 22:00 Al Hydrox/Mg Hydrox/Simethicone (Mag-Al Plus) 15 ml Q4H PRN PO CONSTIPATION; Start 09/02/17 at 22:00 Docusate Sodium (Colace) 100 mg BID PO Last administered on 09/08/17 09:36; Admin Dose 100 MG; Start 09/03/17 at 09:00 Ferrous Sulfate (Ferrous Sulfate (Ec)) 325 mg TID PO Last administered on 09/08 13:18; Admin Dose 325 MG; Start 09/03/17 at 09:00 Diazepam (Valium) 5 mg Q4H PRN PO MUSCLE SPASMS Last administered on 15:26; Admin Dose 5 MG; Start 09/02/17 at 22:00 Phenol (Cepastat Lozenge) 1 lozenge PRN PRN MT SORE THROAT; Start 09/02/17 at 22:00 Bethanechol Chloride (Urecholine) 25 mg PRN PRN PO UNABLE TO VOID Last administered on 09/03/17 08:57; Admin Dose 25 MG; Start 09/02/17 at 22:00 Diphenhydramine HCl (Benadryl) 50 mg Q6H PRN PO PRURITUS; Start 09/02/17 at 22 :00 Morphine Sulfate (morphine) 1 mg Q4PCA IV Last administered on 09/03/17 07:02 ; Admin Dose 30 MG; Start 09/02/17 at 22:00 Naloxone HCl 0.2 mg 0.2 mg Q2M PRN IV RR 8 BREATHS/MIN OR LESS; Start at 22:00 Acetaminophen 100 ml @ 400 mls/hr Q6H IVPB Last administered on 09/08/17 15: 59; Admin Dose 400 MLS/HR; Start 09/04/17 at 10:30 Vancomycin HCl/ Sodium Chloride (Vancocin/NS) 250 ml @ 83.333 mls/ hr Q8H IVPB ; Start 09/08/17 at 18:00 LORENA GONZALEZ MD Sep 08, 2017 17:37
[2017-09-08] MEDS: VANCOMYCIN 1.25 GM in SOD CHLORIDE 0.9% 250 ML IVPB SCH (18:14)
[2017-09-08 20:14] VITALS: BP 116/77; RESP 20
[2017-09-09] MEDS: ACETAMINOPHEN 1000MG/100ML IV 100 ML IVPB SCH ×5 (00:02→22:30)
[2017-09-09 02:15] VITALS: BP 128/76; RESP 19
[2017-09-09] MEDS: VANCOMYCIN 1.25 GM in SOD CHLORIDE 0.9% 250 ML IVPB SCH ×3 (02:29→17:44)
[2017-09-09] MEDS: PANTOPRAZOLE (EC) 40 MG TAB PO SCH (05:44)
[2017-09-09 06:03] LABS: BASOPHILS % 0.2 % (0.0-2.0); EOSINOPHILS # 0.3 10^3/ul (0.0-0.5); EOSINOPHILS % 2.8 % (0.0-7.0); HEMATOCRIT 37.2 % (42.0-52.0); LYMPHOCYTES # 2.2 10^3/ul (0.8-2.9); LYMPHOCYTES % 19.3 % (15.0-51.0); MEAN CORPUSCULAR HEMOGLOBIN 31.3 pg (29.0-33.0); MEAN CORPUSCULAR HGB CONC 32.3 g/dl (32.0-37.0); MEAN CORPUSCULAR VOLUME 96.9 fl (82.0-101.0); MEAN PLATELET VOLUME 11.4 fl (7.4-10.4); MONOCYTE # 1.1 10^3/ul (0.3-0.9); MONOCYTES % 9.7 % (0.0-11.0); NEUTROPHIL # 7.5 10^3/ul (1.6-7.5); NEUTROPHILS % 65.6 % (39.0-77.0); PLATELET COUNT 205 10^3/UL (140-415); RED BLOOD COUNT 3.84 10^6/ul (4.70-6.10); RED CELL DISTRIBUTION WIDTH 14.6 % (11.5-14.5); WHITE BLOOD COUNT 11.4 10^3/ul (4.8-10.8)
[2017-09-09 06:24] LABS: INR 1.07; PROTIME 13.9 Sec (12.2-14.2); PT RATIO 1.1
[2017-09-09 06:25] LABS: PARTIAL THROMBOPLASTIN TIME 30.6 Sec (25.0-35.0)
[2017-09-09 06:57] LABS: ALBUMIN 2.9 g/dl (3.3-4.9); BILIRUBIN,INDIRECT 0.3 mg/dl (0-1.1); BILIRUBIN,TOTAL 0.3 mg/dl (0.2-1.3); CALCIUM 8.4 mg/dl (8.4-10.2); CREATININE 0.61 mg/dl (0.61-1.24); POTASSIUM 4.1 mmol/L (3.5-5.1); TOTAL PROTEIN 5.8 g/dl (6.1-8.1)
[2017-09-09 08:22] VITALS: BP 124/77; RESP 20
[2017-09-09] MEDS: DOCUSATE SODIUM 100 MG CAP PO SCH ×2 (09:43→21:00)
[2017-09-09] MEDS: CYANOCOBALAMIN 1000 MCG INJ IM SCH (09:43)
[2017-09-09] MEDS: CEFEPIME 1GM/50 ML (PMX) 50 ML IVPB SCH ×2 (09:43→21:00)
[2017-09-09] MEDS: FERROUS SULFATE (EC) 325 MG TAB PO SCH ×3 (09:43→21:00)
[2017-09-09 14:00] VITALS: BP 126/73; RESP 18
--- NOTE | 2017-09-09 18:22 | PN ---
Date/Time of Note Date/Time of Note DATE: 09/09/17 TIME: 18:21 Assessment/Plan VTE Prophylaxis VTE Prophylaxis Intervention: SCD's Lines/Catheters IV Catheter Type (from Nrs): PICC Line Central line still needed: Yes (terminal worker IV abx ) Urinary Cath still in place: No Assessment/Plan Assessment/Plan 1. 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 Status post T9 - T11 laminectomy, T9 -T11 arthrodesis, and T9-T11 bilateral pedicle screw instrumentation on 09/02/2017. Continue physical therapy. Continue tapering dose of steroids. 2. Abnormal bone marrow signal with surrounding soft tissue edema involving the left C3-C4 facet joint; increased joint effusion and small focus of probable erosion involving the left inferior articular facet of C3, findings concerning for septic/inflammatory arthritis. Cervical spine MRI showing small amount of enhancing soft tissue likely a phlegmon around the left facet joint extending into the left neural foramen. The patient on antimicrobials as per infectious diseases. 3. Cerebral palsy. Continue supportive care. 4. Leucocytosisl due to setroids 5. DVT prophylaxis. Bilateral SCDs. 6. Plan. stright in and out catheter for urinary retention, IV abx cefepime and Vanocmycin as per ID. Steroid tapering as per neurosurgery. Continue physical therapy. Case management consult for SNF placement Subjective 24 Hr Interval Summary Free Text/Dictation no acute events, getting IV abx, no urinary retention in last 24 hr Exam/Review of Systems Vital Signs Vitals Vital Signs Date Time Temp Pulse Resp B/P Pulse Ox O2 Delivery O2 Flow Rate FiO2 09/09/17 14:00 98.8 119 18 126/73 98 Intake and Output 09/08/17 09/08/17 09/09/17 15:00 23:00 07:00 Intake Total 400 ml 750 ml 500 ml Balance 400 ml 750 ml 500 ml Exam Constitutional: VSS, NAD HEENT: Unremarkable Neck: Supple, full ROM Respiratory: Equal chest rise bilaterally, without dyspnea on observation Cardiovascular: nl pulse Gastrointestinal: Soft, NT Extremities: Warm Neurological: Lethargic Results Result Diagram: 09/09/172 09/09/17 0442 Results 24 hrs Laboratory Tests Test 09/09/17 04:42 White Blood Count 11.4 H Red Blood Count 3.84 L Hemoglobin 12.0 L Hematocrit 37.2 L Mean Corpuscular Volume 96.9 Mean Corpuscular Hemoglobin 31.3 Mean Corpuscular Hemoglobin Concent 32.3 Red Cell Distribution Width 14.6 H Platelet Count 205 Mean Platelet Volume 11.4 H Neutrophils % 65.6 Lymphocytes % 19.3 Monocytes % 9.7 Eosinophils % 2.8 Basophils % 0.2 Nucleated Red Blood Cells % 0.0 Neutrophils # 7.5 Lymphocytes # 2.2 Monocytes # 1.1 H Eosinophils # 0.3 Basophils # 0.0 Nucleated Red Blood Cells # 0.0 Prothrombin Time 13.9 Prothrombin Time Ratio 1.1 INR International Normalized Ratio 1.07 Activated Partial Thromboplast Time 30.6 Sodium Level 139 Potassium Level 4.1 Chloride Level 107 Carbon Dioxide Level 26 Anion Gap 10 Blood Urea Nitrogen 14 Creatinine 0.61 Glucose Level 85 Calcium Level 8.4 Total Bilirubin 0.3 Direct Bilirubin 0.00 Indirect Bilirubin 0.3 Aspartate Amino Transf (AST/SGOT) 45 Alanine Aminotransferase (ALT/SGPT) 92 H Alkaline Phosphatase 60 Total Protein 5.8 L Albumin 2.9 L Globulin 2.90 Albumin/Globulin Ratio 1.00 Medications Medications Current Medications Ondansetron HCl (Zofran Inj) 4 mg Q6H PRN IV NAUSEA AND/OR VOMITING; Start 08/27/17 at 06:00 Acetaminophen (Tylenol Tab) 650 mg Q6H PRN PO PAIN LEVEL 1-3 OR FEVER Last administered on 08/27/17 21:04; Admin Dose 650 MG; Start 08/27/17 at 06:00; Status Future Hold Pantoprazole (Protonix Tab) 40 mg DAILY@06 PO Last administered on 09/09/17 05:44; Admin Dose 40 MG; Start 08/27/17 at 06:00 Heparin Sodium (Porcine) (Heparin (5000 Units/0.5 ml)) 5,000 unit Q8 SC Last administered on 09/01/17 05:26; Admin Dose 5,000 UNIT; Start 08/27/17 at 06:00 ; Status Future Hold Acetaminophen/ Hydrocodone Bitart 1 tab 1 tab Q4H PRN PO Pain Last administered on 09/01/17 17:55; Admin Dose 1 TAB; Start 08/28/17 at 10:30; Status Future Hold Cefepime HCl (Maxipime 1gm/50 ml (Pmx)) 50 ml @ 100 mls/hr Q12 IVPB Last administered on 09/09/17 09:43; Admin Dose 100 MLS/HR; Start 08/30/17 at 11: 00 Cyanocobalamin (Vitamin B12 Inj) 1,000 mcg DAILY IM Last administered on 09:43; Admin Dose 1,000 MCG; Start 08/30/17 at 12:00 Morphine Sulfate (morphine) 2 mg Q4H PRN IV pain Last administered on 14:09; Admin Dose 2 MG; Start 09/01/17 at 09:30 Acetaminophen/ Hydrocodone Bitart ([place] (5/325)) 1 tab Q4H PRN PO PAIN LEVEL 1 -5; Start 09/02/17 at 22:00; Status Future Hold Acetaminophen/ Hydrocodone Bitart ([place] (5/325)) 2 tab Q4H PRN PO PAIN LEVEL 6 -10 Last administered on 09/04/17 10:05; Admin Dose 2 TAB; Start 09/02/17 at 22:00; Status Future Hold Zolpidem Tartrate (Ambien) 5 mg HS PRN PO INSOMNIA; Start 09/02/17 at 22:00 Al Hydrox/Mg Hydrox/Simethicone (Mag-Al Plus) 15 ml Q4H PRN PO CONSTIPATION; Start 09/02/17 at 22:00 Docusate Sodium (Colace) 100 mg BID PO Last administered on 09/09/17 09:43; Admin Dose 100 MG; Start 09/03/17 at 09:00 Ferrous Sulfate (Ferrous Sulfate (Ec)) 325 mg TID PO Last administered on 09/09 13:17; Admin Dose 325 MG; Start 09/03/17 at 09:00 Diazepam (Valium) 5 mg Q4H PRN PO MUSCLE SPASMS Last administered on 15:26; Admin Dose 5 MG; Start 09/02/17 at 22:00 Phenol (Cepastat Lozenge) 1 lozenge PRN PRN MT SORE THROAT; Start 09/02/17 at 22:00 Bethanechol Chloride (Urecholine) 25 mg PRN PRN PO UNABLE TO VOID Last administered on 09/03/17 08:57; Admin Dose 25 MG; Start 09/02/17 at 22:00 Diphenhydramine HCl (Benadryl) 50 mg Q6H PRN PO PRURITUS; Start 09/02/17 at 22 :00 Morphine Sulfate (morphine) 1 mg Q4PCA IV Last administered on 09/03/17 07:02 ; Admin Dose 30 MG; Start 09/02/17 at 22:00 Naloxone HCl 0.2 mg 0.2 mg Q2M PRN IV RR 8 BREATHS/MIN OR LESS; Start at 22:00 Acetaminophen 100 ml @ 400 mls/hr Q6H IVPB Last administered on 09/09/17 15: 42; Admin Dose 400 MLS/HR; Start 09/04/17 at 10:30 Vancomycin HCl/ Sodium Chloride (Vancocin/NS) 250 ml @ 83.333 mls/ hr Q8H IVPB Last administered on 09/09/17 17:44; Admin Dose 83.333 MLS/HR; Start at 18:00 Miscellaneous Information (*Rx Drug Level Order Reminder*) 1 ONCE ONCE XX ; Start 09/10/17 at 01:00; Stop 09/10/17 at 01:01 LORENA GONZALEZ MD Sep 09, 2017 18:22
[2017-09-09 20:22] VITALS: BP 133/73; RESP 20
[2017-09-10] MEDS: VANCOMYCIN 1.25 GM in SOD CHLORIDE 0.9% 250 ML IVPB SCH ×3 (02:39→15:40)
[2017-09-10 03:22] VITALS: BP 125/77; RESP 18
[2017-09-10 05:14] LABS: BASOPHILS % 0.2 % (0.0-2.0); EOSINOPHILS # 0.3 10^3/ul (0.0-0.5); LYMPHOCYTES # 1.8 10^3/ul (0.8-2.9); LYMPHOCYTES % 13.8 % (15.0-51.0); MEAN CORPUSCULAR HEMOGLOBIN 32.3 pg (29.0-33.0); MEAN CORPUSCULAR HGB CONC 33.3 g/dl (32.0-37.0); MEAN PLATELET VOLUME 11.2 fl (7.4-10.4); NEUTROPHIL # 9.4 10^3/ul (1.6-7.5); NEUTROPHILS % 73.3 % (39.0-77.0); PLATELET COUNT 187 10^3/UL (140-415); POSITIVE DIFF @See below; RED BLOOD COUNT 3.71 10^6/ul (4.70-6.10); RED CELL DISTRIBUTION WIDTH 14.4 % (11.5-14.5); WHITE BLOOD COUNT 12.8 10^3/ul (4.8-10.8)
[2017-09-10 05:31] LABS: CALCIUM 8.6 mg/dl (8.4-10.2); CREATININE 0.58 mg/dl (0.61-1.24); POTASSIUM 4.3 mmol/L (3.5-5.1)
[2017-09-10] MEDS: PANTOPRAZOLE (EC) 40 MG TAB PO SCH (05:32)
[2017-09-10] MEDS: ACETAMINOPHEN 1000MG/100ML IV 100 ML IVPB SCH ×5 (05:33→22:53)
[2017-09-10 08:00] VITALS: BP 148/64; RESP 18
[2017-09-10] MEDS: CEFEPIME 1GM/50 ML (PMX) 50 ML IVPB SCH ×3 (09:00→21:16)
[2017-09-10] MEDS: FERROUS SULFATE (EC) 325 MG TAB PO SCH ×3 (09:22→21:16)
[2017-09-10] MEDS: CYANOCOBALAMIN 1000 MCG INJ IM SCH (09:22)
[2017-09-10] MEDS: DOCUSATE SODIUM 100 MG CAP PO SCH ×2 (09:22→21:00)
--- NOTE | 2017-09-10 13:52 | PN ---
Date/Time of Note Date/Time of Note DATE: 09/10/17 TIME: 13:51 Assessment/Plan VTE Prophylaxis VTE Prophylaxis Intervention: SCD's Lines/Catheters IV Catheter Type (from Nrs): PICC Line Central line still needed: Yes Urinary Cath still in place: No Assessment/Plan Chief Complaint/Hosp Course 1. 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 Status post T9 - T11 laminectomy, T9 -T11 arthrodesis, and T9-T11 bilateral pedicle screw instrumentation on 09/02/2017. Continue physical therapy. S/P tapering dose of steroids. 2. Abnormal bone marrow signal with surrounding soft tissue edema involving the left C3-C4 facet joint; increased joint effusion and small focus of probable erosion involving the left inferior articular facet of C3, findings concerning for septic/inflammatory arthritis. Cervical spine MRI showing small amount of enhancing soft tissue likely a phlegmon around the left facet joint extending into the left neural foramen. The patient on antimicrobials as per infectious diseases. 3. Cerebral palsy. Continue supportive care. 4. Fluids, electrolytes, and nutrition. Regular diet. 5. DVT prophylaxis. Bilateral SCDs. 6. Plan. Continue antimicrobials as per infectious diseases. Continue physical therapy. Needs placement. Case discussed with Dr. Coreas. Problems: Subjective 24 Hr Interval Summary Free Text/Dictation Back pain well controlled. Exam/Review of Systems Vital Signs Vitals Vital Signs Date Time Temp Pulse Resp B/P Pulse Ox O2 Delivery O2 Flow Rate FiO2 09/10/17 08:00 97.9 95 18 148/64 98 Intake and Output 09/09/17 09/09/17 09/10/17 15:00 23:00 07:00 Intake Total 1050 ml 583.33 ml 350 ml Output Total 1000 ml Balance 50 ml 583.33 ml 350 ml Exam General: Adequately build 37 year-old male lying in bed in no apparent distress. HEENT: Normocephalic, atraumatic. Eyes: Anicteric sclerae, conjunctivae clear. ENT: Nasal septum midline, oral mucosa moist. Neck supple, no JVD noticed. Respiratory: Bilaterally clear breath sounds. No use of accessory muscles of respiration. No adventitious breath sounds. Cardiovascular: S1, S2 heard. No murmurs or gallops. Abdomen: Soft, nontender, and nondistended. Bowel sounds positive in all 4 quadrants. Genitourinary: Deferred. Extremities: No cyanosis, no clubbing, no edema. Peripheral pulses palpable. Neurologic: The patient is awake and alert. Dysarthria. RLE weaker when compared to the left. Skin: Normal skin turgor. Results Result Diagram: 09/10/17 0441 09/10/17 0441 Results 24 hrs Laboratory Tests Test 09/10/17 01:15 09/10/17 04:41 Vancomycin Level Trough 14.3 White Blood Count 12.8 H Red Blood Count 3.71 L Hemoglobin 12.0 L Hematocrit 36.0 L Mean Corpuscular Volume 97.0 Mean Corpuscular Hemoglobin 32.3 Mean Corpuscular Hemoglobin Concent 33.3 Red Cell Distribution Width 14.4 Platelet Count 187 Mean Platelet Volume 11.2 H Neutrophils % 73.3 Lymphocytes % 13.8 L Monocytes % 8.0 Eosinophils % 2.0 Basophils % 0.2 Nucleated Red Blood Cells % 0.0 Neutrophils # 9.4 H Lymphocytes # 1.8 Monocytes # 1.0 H Eosinophils # 0.3 Basophils # 0.0 Nucleated Red Blood Cells # 0.0 Sodium Level 139 Potassium Level 4.3 Chloride Level 108 Carbon Dioxide Level 27 Anion Gap 8 Blood Urea Nitrogen 16 Creatinine 0.58 L Glucose Level 96 Calcium Level 8.6 Medications Medications Current Medications Ondansetron HCl (Zofran Inj) 4 mg Q6H PRN IV NAUSEA AND/OR VOMITING; Start 08/27/17 at 06:00 Acetaminophen (Tylenol Tab) 650 mg Q6H PRN PO PAIN LEVEL 1-3 OR FEVER Last administered on 08/27/17 21:04; Admin Dose 650 MG; Start 08/27/17 at 06:00; Status Future Hold Pantoprazole (Protonix Tab) 40 mg DAILY@06 PO Last administered on 09/10/17 05:32; Admin Dose 40 MG; Start 08/27/17 at 06:00 Heparin Sodium (Porcine) (Heparin (5000 Units/0.5 ml)) 5,000 unit Q8 SC Last administered on 09/01/17 05:26; Admin Dose 5,000 UNIT; Start 08/27/17 at 06:00 ; Status Future Hold Acetaminophen/ Hydrocodone Bitart 1 tab 1 tab Q4H PRN PO Pain Last administered on 09/01/17 17:55; Admin Dose 1 TAB; Start 08/28/17 at 10:30; Status Future Hold Cefepime HCl (Maxipime 1gm/50 ml (Pmx)) 50 ml @ 100 mls/hr Q12 IVPB Last administered on 09/10/17 11:08; Admin Dose 100 MLS/HR; Start 08/30/17 at 11: 00 Cyanocobalamin (Vitamin B12 Inj) 1,000 mcg DAILY IM Last administered on 09:22; Admin Dose 1,000 MCG; Start 08/30/17 at 12:00 Morphine Sulfate (morphine) 2 mg Q4H PRN IV pain Last administered on 14:09; Admin Dose 2 MG; Start 09/01/17 at 09:30 Acetaminophen/ Hydrocodone Bitart ([place] (5/325)) 1 tab Q4H PRN PO PAIN LEVEL 1 -5; Start 09/02/17 at 22:00; Status Future Hold Acetaminophen/ Hydrocodone Bitart ([place] (5/325)) 2 tab Q4H PRN PO PAIN LEVEL 6 -10 Last administered on 09/04/17 10:05; Admin Dose 2 TAB; Start 09/02/17 at 22:00; Status Future Hold Zolpidem Tartrate (Ambien) 5 mg HS PRN PO INSOMNIA; Start 09/02/17 at 22:00 Al Hydrox/Mg Hydrox/Simethicone (Mag-Al Plus) 15 ml Q4H PRN PO CONSTIPATION; Start 09/02/17 at 22:00 Docusate Sodium (Colace) 100 mg BID PO Last administered on 09/10/17 09:22; Admin Dose 100 MG; Start 09/03/17 at 09:00 Ferrous Sulfate (Ferrous Sulfate (Ec)) 325 mg TID PO Last administered on 09/10 13:29; Admin Dose 325 MG; Start 09/03/17 at 09:00 Diazepam (Valium) 5 mg Q4H PRN PO MUSCLE SPASMS Last administered on 15:26; Admin Dose 5 MG; Start 09/02/17 at 22:00 Phenol (Cepastat Lozenge) 1 lozenge PRN PRN MT SORE THROAT; Start 09/02/17 at 22:00 Bethanechol Chloride (Urecholine) 25 mg PRN PRN PO UNABLE TO VOID Last administered on 09/03/17 08:57; Admin Dose 25 MG; Start 09/02/17 at 22:00 Diphenhydramine HCl (Benadryl) 50 mg Q6H PRN PO PRURITUS; Start 09/02/17 at 22 :00 Morphine Sulfate (morphine) 1 mg Q4PCA IV Last administered on 09/03/17 07:02 ; Admin Dose 30 MG; Start 09/02/17 at 22:00 Naloxone HCl 0.2 mg 0.2 mg Q2M PRN IV RR 8 BREATHS/MIN OR LESS; Start at 22:00 Acetaminophen 100 ml @ 400 mls/hr Q6H IVPB Last administered on 09/10/17 12: 11; Admin Dose 400 MLS/HR; Start 09/04/17 at 10:30 Vancomycin HCl/ Sodium Chloride (Vancocin/NS) 250 ml @ 83.333 mls/ hr Q8H IVPB ; Start 09/10/17 at 08:00 HEIDI RASHEED NP Sep 10, 2017 13:52
[2017-09-10 15:57] VITALS: BP 129/64; RESP 20
[2017-09-10 20:18] VITALS: BP 128/62; PULSE 92; RESP 18
--- NOTE | 2017-09-10 21:05 | CONS ---
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 Objective Vital Signs Date Time Temp Pulse Resp B/P Pulse Ox O2 Delivery O2 Flow Rate FiO2 09/10/17 20:18 98.3 92 18 128/62 95 Room Air Intake and Output 09/09/17 09/09/17 09/10/17 15:00 23:00 07:00 Intake Total 1050 ml 583.33 ml 350 ml Output Total 1000 ml Balance 50 ml 583.33 ml 350 ml Results/Medications Result Diagram: 09/10/17 0441 09/10/17 0441 Results 24 hrs Laboratory Tests Test 09/10/17 01:15 09/10/17 04:41 Vancomycin Level Trough 14.3 White Blood Count 12.8 H Red Blood Count 3.71 L Hemoglobin 12.0 L Hematocrit 36.0 L Mean Corpuscular Volume 97.0 Mean Corpuscular Hemoglobin 32.3 Mean Corpuscular Hemoglobin Concent 33.3 Red Cell Distribution Width 14.4 Platelet Count 187 Mean Platelet Volume 11.2 H Neutrophils % 73.3 Lymphocytes % 13.8 L Monocytes % 8.0 Eosinophils % 2.0 Basophils % 0.2 Nucleated Red Blood Cells % 0.0 Neutrophils # 9.4 H Lymphocytes # 1.8 Monocytes # 1.0 H Eosinophils # 0.3 Basophils # 0.0 Nucleated Red Blood Cells # 0.0 Sodium Level 139 Potassium Level 4.3 Chloride Level 108 Carbon Dioxide Level 27 Anion Gap 8 Blood Urea Nitrogen 16 Creatinine 0.58 L Glucose Level 96 Calcium Level 8.6 Medications Current Medications Ondansetron HCl (Zofran Inj) 4 mg Q6H PRN IV NAUSEA AND/OR VOMITING; Start 08/27/17 at 06:00 Acetaminophen (Tylenol Tab) 650 mg Q6H PRN PO PAIN LEVEL 1-3 OR FEVER Last administered on 08/27/17 21:04; Admin Dose 650 MG; Start 08/27/17 at 06:00; Status Future Hold Pantoprazole (Protonix Tab) 40 mg DAILY@06 PO Last administered on 09/10/17 05:32; Admin Dose 40 MG; Start 08/27/17 at 06:00 Heparin Sodium (Porcine) (Heparin (5000 Units/0.5 ml)) 5,000 unit Q8 SC Last administered on 09/01/17 05:26; Admin Dose 5,000 UNIT; Start 08/27/17 at 06:00 ; Status Future Hold Acetaminophen/ Hydrocodone Bitart 1 tab 1 tab Q4H PRN PO Pain Last administered on 09/01/17 17:55; Admin Dose 1 TAB; Start 08/28/17 at 10:30; Status Future Hold Cefepime HCl (Maxipime 1gm/50 ml (Pmx)) 50 ml @ 100 mls/hr Q12 IVPB Last administered on 09/10/17 11:08; Admin Dose 100 MLS/HR; Start 08/30/17 at 11: 00 Cyanocobalamin (Vitamin B12 Inj) 1,000 mcg DAILY IM Last administered on 09:22; Admin Dose 1,000 MCG; Start 08/30/17 at 12:00 Morphine Sulfate (morphine) 2 mg Q4H PRN IV pain Last administered on 14:09; Admin Dose 2 MG; Start 09/01/17 at 09:30 Acetaminophen/ Hydrocodone Bitart ([place] (5/325)) 1 tab Q4H PRN PO PAIN LEVEL 1 -5; Start 09/02/17 at 22:00; Status Future Hold Acetaminophen/ Hydrocodone Bitart ([place] (5/325)) 2 tab Q4H PRN PO PAIN LEVEL 6 -10 Last administered on 09/04/17 10:05; Admin Dose 2 TAB; Start 09/02/17 at 22:00; Status Future Hold Zolpidem Tartrate (Ambien) 5 mg HS PRN PO INSOMNIA; Start 09/02/17 at 22:00 Al Hydrox/Mg Hydrox/Simethicone (Mag-Al Plus) 15 ml Q4H PRN PO CONSTIPATION; Start 09/02/17 at 22:00 Docusate Sodium (Colace) 100 mg BID PO Last administered on 09/10/17 09:22; Admin Dose 100 MG; Start 09/03/17 at 09:00 Ferrous Sulfate (Ferrous Sulfate (Ec)) 325 mg TID PO Last administered on 09/10 13:29; Admin Dose 325 MG; Start 09/03/17 at 09:00 Diazepam (Valium) 5 mg Q4H PRN PO MUSCLE SPASMS Last administered on 15:26; Admin Dose 5 MG; Start 09/02/17 at 22:00 Phenol (Cepastat Lozenge) 1 lozenge PRN PRN MT SORE THROAT; Start 09/02/17 at 22:00 Bethanechol Chloride (Urecholine) 25 mg PRN PRN PO UNABLE TO VOID Last administered on 09/03/17 08:57; Admin Dose 25 MG; Start 09/02/17 at 22:00 Diphenhydramine HCl (Benadryl) 50 mg Q6H PRN PO PRURITUS; Start 09/02/17 at 22 :00 Morphine Sulfate (morphine) 1 mg Q4PCA IV Last administered on 09/03/17 07:02 ; Admin Dose 30 MG; Start 09/02/17 at 22:00 Naloxone HCl 0.2 mg 0.2 mg Q2M PRN IV RR 8 BREATHS/MIN OR LESS; Start at 22:00 Acetaminophen 100 ml @ 400 mls/hr Q6H IVPB Last administered on 09/10/17 12: 11; Admin Dose 400 MLS/HR; Start 09/04/17 at 10:30 Vancomycin HCl/ Sodium Chloride (Vancocin/NS) 250 ml @ 83.333 mls/ hr Q8H IVPB Last administered on 09/10/17 15:40; Admin Dose 83.333 MLS/HR; Start at 08:00 Assessment/Plan Chief Complaint/Hosp Course SUBJECTIVE: No acute changes overnight, no fevers. The patient is alert, looks comfortable. No fevers ANTIMICROBIALS: 1. Vancomycin. 2. Cefepime. INDWELLINGS: PICC line. PHYSICAL EXAMINATION: GENERAL: Well-developed, middle-aged man who is alert, in no distress. HEENT: Head atraumatic, normocephalic. Sclerae anicteric. Buccal mucosa pink. NECK: Supple. CHEST: Rise symmetrical. Breath sounds diminished CTA. HEART: S1, S2. ABDOMEN: Soft. Bowel tones present. EXTREMITIES: Without cyanosis. ASSESSMENT: 1. Abnormal C-spine MRI with concern of septic versus inflammatory arthritis, patient remains on broad spectrum antibiotics. 2. Leukocytosis secondary to Decadron. 3. Thoracic stenosis and paraparesis status post T9-11 laminectomy, arthrodesis , bilateral pedical screw instrumentation on 09/02/2017. 4. Cerebral palsy. PLAN: The patient remains stable, continue abx for 6 weeks total. Follow neurosurgery recommendations. DW staff Problems: VIRIDIANA DESAI NP Sep 10, 2017 21:05
[2017-09-11] MEDS: VANCOMYCIN 1.25 GM in SOD CHLORIDE 0.9% 250 ML IVPB SCH ×4 (00:37→23:26)
[2017-09-11 02:00] VITALS: BP 121/74; RESP 19
[2017-09-11] MEDS: ACETAMINOPHEN 1000MG/100ML IV 100 ML IVPB SCH ×4 (05:23→21:46)
[2017-09-11] MEDS: PANTOPRAZOLE (EC) 40 MG TAB PO SCH (05:23)
[2017-09-11] MEDS: FERROUS SULFATE (EC) 325 MG TAB PO SCH ×3 (08:11→20:25)
[2017-09-11] MEDS: DOCUSATE SODIUM 100 MG CAP PO SCH ×2 (08:11→20:25)
[2017-09-11] MEDS: CYANOCOBALAMIN 1000 MCG INJ IM SCH (08:12)
[2017-09-11 08:27] VITALS: BP 127/60; RESP 18
--- NOTE | 2017-09-11 09:05 | PN ---
Date/Time of Note Date/Time of Note DATE: 09/11/17 TIME: 09:04 Assessment/Plan VTE Prophylaxis VTE Prophylaxis Intervention: SCD's Lines/Catheters IV [facility] Type (from [facility] PICC Line Central line still needed: Yes Urinary Cath still in place: No Assessment/Plan Chief Complaint/Hosp Course 1. 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 Status post T9 - T11 laminectomy, T9 -T11 arthrodesis, and T9-T11 bilateral pedicle screw instrumentation on 09/02/2017. Continue physical therapy. S/P tapering dose of steroids. 2. Abnormal bone marrow signal with surrounding soft tissue edema involving the left C3-C4 facet joint; increased joint effusion and small focus of probable erosion involving the left inferior articular facet of C3, findings concerning for septic/inflammatory arthritis. Cervical spine MRI showing small amount of enhancing soft tissue likely a phlegmon around the left facet joint extending into the left neural foramen. The patient on antimicrobials as per infectious diseases. 3. Cerebral palsy. Continue supportive care. 4. Fluids, electrolytes, and nutrition. Regular diet. 5. DVT prophylaxis. Bilateral SCDs. 6. Plan. Continue antimicrobials as per infectious diseases. Continue physical therapy. Needs placement. Case discussed with Dr. Coreas. Problems: Subjective 24 Hr Interval Summary Free Text/Dictation The patient remains afebrile. Exam/Review of Systems Vital Signs Vitals Vital Signs Date Time Temp Pulse Resp B/P Pulse Ox O2 Delivery O2 Flow Rate FiO2 09/11/17 08:27 98.3 96 18 127/60 99 09/10/17 20:18 Room Air Intake and Output 09/10/17 09/10/17 09/11/17 15:00 23:00 07:00 Intake Total 550 ml 900 ml 1150 ml Output Total 600 ml 1500 ml Balance -50 ml 900 ml -350 ml Exam General: Adequately build 37 year-old male lying in bed in no apparent distress. HEENT: Normocephalic, atraumatic. Eyes: Anicteric sclerae, conjunctivae clear. ENT: Nasal septum midline, oral mucosa moist. Neck supple, no JVD noticed. Respiratory: Bilaterally clear breath sounds. No use of accessory muscles of respiration. No adventitious breath sounds. Cardiovascular: S1, S2 heard. No murmurs or gallops. Abdomen: Soft, nontender, and nondistended. Bowel sounds positive in all 4 quadrants. Genitourinary: Deferred. Extremities: No cyanosis, no clubbing, no edema. Peripheral pulses palpable. Neurologic: The patient is awake and alert. Dysarthria. RLE weaker when compared to the left. Skin: Normal skin turgor. Results Result Diagram: 09/10/1744009/10/17440 Medications Medications Current Medications Ondansetron HCl (Zofran Inj) 4 mg Q6H PRN IV NAUSEA AND/OR VOMITING; Start 08/27/17 at 06:00 Acetaminophen (Tylenol Tab) 650 mg Q6H PRN PO PAIN LEVEL 1-3 OR FEVER Last administered on 08/27/17 21:04; Admin Dose 650 MG; Start 08/27/17 at 06:00; Status Future Hold Pantoprazole (Protonix Tab) 40 mg DAILY@06 PO Last administered on 09/11/17 05:23; Admin Dose 40 MG; Start 08/27/17 at 06:00 Heparin Sodium (Porcine) (Heparin (5000 Units/0.5 ml)) 5,000 unit Q8 SC Last administered on 09/01/17 05:26; Admin Dose 5,000 UNIT; Start 08/27/17 at 06:00 ; Status Future Hold Acetaminophen/ Hydrocodone Bitart 1 tab 1 tab Q4H PRN PO Pain Last administered on 09/01/17 17:55; Admin Dose 1 TAB; Start 08/28/17 at 10:30; Status Future Hold Cefepime HCl (Maxipime 1gm/50 ml (Pmx)) 50 ml @ 100 mls/hr Q12 IVPB Last administered on 09/10/17 21:16; Admin Dose 100 MLS/HR; Start 08/30/17 at 11: 00 Cyanocobalamin (Vitamin B12 Inj) 1,000 mcg DAILY IM Last administered on 08:12; Admin Dose 1,000 MCG; Start 08/30/17 at 12:00 Morphine Sulfate (morphine) 2 mg Q4H PRN IV pain Last administered on 14:09; Admin Dose 2 MG; Start 09/01/17 at 09:30 Acetaminophen/ Hydrocodone Bitart ([place] (5/325)) 1 tab Q4H PRN PO PAIN LEVEL 1 -5; Start 09/02/17 at 22:00; Status Future Hold Acetaminophen/ Hydrocodone Bitart ([place] (5/325)) 2 tab Q4H PRN PO PAIN LEVEL 6 -10 Last administered on 09/04/17 10:05; Admin Dose 2 TAB; Start 09/02/17 at 22:00; Status Future Hold Zolpidem Tartrate (Ambien) 5 mg HS PRN PO INSOMNIA; Start 09/02/17 at 22:00 Al Hydrox/Mg Hydrox/Simethicone (Mag-Al Plus) 15 ml Q4H PRN PO CONSTIPATION; Start 09/02/17 at 22:00 Docusate Sodium (Colace) 100 mg BID PO Last administered on 09/11/17 08:11; Admin Dose 100 MG; Start 09/03/17 at 09:00 Ferrous Sulfate (Ferrous Sulfate (Ec)) 325 mg TID PO Last administered on 09/11 08:11; Admin Dose 325 MG; Start 09/03/17 at 09:00 Diazepam (Valium) 5 mg Q4H PRN PO MUSCLE SPASMS Last administered on 15:26; Admin Dose 5 MG; Start 09/02/17 at 22:00 Phenol (Cepastat Lozenge) 1 lozenge PRN PRN MT SORE THROAT; Start 09/02/17 at 22:00 Bethanechol Chloride (Urecholine) 25 mg PRN PRN PO UNABLE TO VOID Last administered on 09/03/17 08:57; Admin Dose 25 MG; Start 09/02/17 at 22:00 Diphenhydramine HCl (Benadryl) 50 mg Q6H PRN PO PRURITUS; Start 09/02/17 at 22 :00 Morphine Sulfate (morphine) 1 mg Q4PCA IV Last administered on 09/03/17 07:02 ; Admin Dose 30 MG; Start 09/02/17 at 22:00 Naloxone HCl 0.2 mg 0.2 mg Q2M PRN IV RR 8 BREATHS/MIN OR LESS; Start at 22:00 Acetaminophen 100 ml @ 400 mls/hr Q6H IVPB Last administered on 09/11/17 05: 23; Admin Dose 400 MLS/HR; Start 09/04/17 at 10:30 Vancomycin HCl/ Sodium Chloride (Vancocin/NS) 250 ml @ 83.333 mls/ hr Q8H IVPB Last administered on 09/11/17t 07:33; Admin Dose 83.333 MLS/HR; Start at 08:00 HEIDI RASHEED NP Sep 11, 2017 09:05
[2017-09-11] MEDS: CEFEPIME 1GM/50 ML (PMX) 50 ML IVPB SCH ×2 (10:38→20:24)
[2017-09-11] MEDS: DIAZEPAM 5 MG TAB PO PRN ×2 (17:07→20:25)
[2017-09-11 20:00] VITALS: BP 137/60; RESP 19
[2017-09-12 02:32] VITALS: BP 125/78; RESP 16
[2017-09-12] MEDS: DIAZEPAM 5 MG TAB PO PRN ×2 (05:03→20:00)
[2017-09-12] MEDS: PANTOPRAZOLE (EC) 40 MG TAB PO SCH (05:03)
[2017-09-12] MEDS: ACETAMINOPHEN 1000MG/100ML IV 100 ML IVPB SCH ×4 (05:03→23:55)
[2017-09-12 08:15] VITALS: BP 121/78; RESP 18
[2017-09-12] MEDS: CEFEPIME 1GM/50 ML (PMX) 50 ML IVPB SCH ×2 (08:23→23:13)
[2017-09-12] MEDS: FERROUS SULFATE (EC) 325 MG TAB PO SCH ×3 (08:26→20:00)
[2017-09-12] MEDS: CYANOCOBALAMIN 1000 MCG INJ IM SCH (08:27)
[2017-09-12] MEDS: DOCUSATE SODIUM 100 MG CAP PO SCH ×2 (08:27→21:00)
[2017-09-12] MEDS: VANCOMYCIN 1.25 GM in SOD CHLORIDE 0.9% 250 ML IVPB SCH ×2 (10:02→19:18)
--- NOTE | 2017-09-12 11:57 | PN ---
DATE: 09/09/2017 SUBJECTIVE: No acute changes per report. The patient is awake, looks comfortable, no fevers. LABORATORY DATA: WBC 11.4, platelets 205, no shift, no bands. BUN 14, creatinine 0.61. ANTIMICROBIALS: The patient is on: 1. IV vancomycin. 2. Cefepime. PHYSICAL EXAMINATION: GENERAL: This is a well-nourished, well-developed, chronically ill-appearing, middle-aged A mer[place] man who is awake, in no distress. HEENT: Head atraumatic, normocephalic. Sclerae anicteric. Buccal mucosa dry. NECK: Supple. CHEST: Rise symmetrical. Breath sounds clear. HEART: S1, S2. ABDOMEN: Soft. Bowel tones present. EXTREMITIES: No cyanosis. ASSESSMENT: 1. Abnormal MRI of C-spine with concern of septic arthritis, patient is on broad spectrum antibioti cs, started on 08/30. 2. Resolving leukocytosis. 3. Thoracic stenosis and paraparesis, status post T9-T11 laminectomy on 09/02/2017. 4. Cerebral palsy. PLAN: The patient remained stable. He is on appropriate antibiotics, which we will continue until 10/12. Neurosurgery on case, pending discharge planning. Dictated By: VIRIDIANA DESAI CORONER/MEDICAL EXAMINER for CAROLYN KRISHNAMURTHY/YOU Conf#: [id number] DID#: [id number]
[2017-09-12 15:07] VITALS: BP 120/80; RESP 18
--- NOTE | 2017-09-12 17:00 | PN ---
Date/Time of Note Date/Time of Note DATE: 09/12/17 TIME: 16:58 Assessment/Plan VTE Prophylaxis VTE Prophylaxis Intervention: SCD's Lines/Catheters IV Catheter Type (from Nrsg): PICC Line Urinary Cath still in place: No Assessment/Plan Chief Complaint/Hosp Course Assessment and plan 1. 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 Patient status post T9-T11 laminectomy with T9-T11 arthrodesis and T9-T11 bilateral pedicle screw instrumentation on September 02, 2017. Continue physical therapy. Steroids per neurologist. 2. Abnormal bone marrow signal with surrounding soft tissue edema involving left C3-C4 facet joint with suspicion for septic arthritis. Continue antibiotics per ID recommendations. Appears stable at present. 3. History of cerebral palsy. Fall precautions. Continue supportive care. Disposition and plan: Continue physical therapy. Still waiting for placement. Continue with antibiotic regimen per ID consult. Discussed plan of care with Dr. Sanford Problems: Subjective 24 Hr Interval Summary Free Text/Dictation Resting in bed. Family at bedside. No specific complaints. Exam/Review of Systems Vital Signs Vitals Vital Signs Date Time Temp Pulse Resp B/P Pulse Ox O2 Delivery O2 Flow Rate FiO2 09/12/17 15:07 97.8 90 18 120/80 96 09/10/17 20:18 Room Air Intake and Output 09/11/17 09/11/17 09/12/17 14:59 22:59 06:59 Intake Total 400 ml 950 ml 1600 ml Output Total 1100 ml 1520 ml Balance 400 ml -150 ml 80 ml Exam Constitutional: alert (Noted with developmental delay) Head: normocephalic Respiratory: clear to auscultation, normal air movement Cardiovascular: regular rate and rhythm Gastrointestinal: soft Musculoskeletal: No nl extremities to inspection Neurological: other (Noted with developmental delay) Results Result Diagram: 09/10/1744009/10/17440 Medications Medications Current Medications Ondansetron HCl (Zofran Inj) 4 mg Q6H PRN IV NAUSEA AND/OR VOMITING; Start 08/27/17 at 06:00 Acetaminophen (Tylenol Tab) 650 mg Q6H PRN PO PAIN LEVEL 1-3 OR FEVER Last administered on 08/27/17t 21:04; Admin Dose 650 MG; Start 08/27/17 at 06:00; Status Future Hold Pantoprazole (Protonix Tab) 40 mg DAILY@06 PO Last administered on 09/12/17 05:03; Admin Dose 40 MG; Start 08/27/17 at 06:00 Heparin Sodium (Porcine) 5000 unit 5,000 unit Q8 SC Last administered on 05:26; Admin Dose 5,000 UNIT; Start 08/27/17 at 06:00; Status Future Hold Cefepime HCl (Maxipime 1gm/50 ml (Pmx)) 50 ml @ 100 mls/hr Q12 IVPB Last administered on 09/12/17 08:23; Admin Dose 100 MLS/HR; Start 08/30/17 at 11: 00 Cyanocobalamin (Vitamin B12 Inj) 1,000 mcg DAILY IM Last administered on 08:27; Admin Dose 1,000 MCG; Start 08/30/17 at 12:00 Morphine Sulfate (morphine) 2 mg Q4H PRN IV pain Last administered on 14:09; Admin Dose 2 MG; Start 09/01/17 at 09:30 Acetaminophen/ Hydrocodone Bitart ([place] (5/325)) 1 tab Q4H PRN PO PAIN LEVEL 1 -5; Start 09/02/17 at 22:00; Status Future Hold Acetaminophen/ Hydrocodone Bitart ([place] (5/325)) 2 tab Q4H PRN PO PAIN LEVEL 6 -10 Last administered on 09/04/17 10:05; Admin Dose 2 TAB; Start 09/02/17 at 22:00; Status Future Hold Zolpidem Tartrate (Ambien) 5 mg HS PRN PO INSOMNIA; Start 09/02/17 at 22:00 Al Hydrox/Mg Hydrox/Simethicone (Mag-Al Plus) 15 ml Q4H PRN PO CONSTIPATION; Start 09/02/17 at 22:00 Docusate Sodium (Colace) 100 mg BID PO Last administered on 09/11/17 08:11; Admin Dose 100 MG; Start 09/03/17 at 09:00 Ferrous Sulfate (Ferrous Sulfate (Ec)) 325 mg TID PO Last administered on 09/12 13:15; Admin Dose 325 MG; Start 09/03/17 at 09:00 Diazepam (Valium) 5 mg Q4H PRN PO MUSCLE SPASMS Last administered on 05:03; Admin Dose 5 MG; Start 09/02/17 at 22:00 Phenol (Cepastat Lozenge) 1 lozenge PRN PRN MT SORE THROAT; Start 09/02/17 at 22:00 Bethanechol Chloride (Urecholine) 25 mg PRN PRN PO UNABLE TO VOID Last administered on 09/03/17 08:57; Admin Dose 25 MG; Start 09/02/17 at 22:00 Diphenhydramine HCl (Benadryl) 50 mg Q6H PRN PO PRURITUS; Start 09/02/17 at 22 :00 Morphine Sulfate (morphine) 1 mg Q4PCA IV Last administered on 09/03/17 07:02 ; Admin Dose 30 MG; Start 09/02/17 at 22:00 Naloxone HCl 0.2 mg 0.2 mg Q2M PRN IV RR 8 BREATHS/MIN OR LESS; Start at 22:00 Acetaminophen 100 ml @ 400 mls/hr Q6H IVPB Last administered on 09/12/17 10: 04; Admin Dose 400 MLS/HR; Start 09/04/17 at 10:30 Vancomycin HCl/ Sodium Chloride (Vancocin/NS) 250 ml @ 83.333 mls/ hr Q8H IVPB Last administered on 09/12/17 10:02; Admin Dose 83.333 MLS/HR; Start at 08:00 Miscellaneous Information (*Rx Drug Level Order Reminder*) VANCOMYCIN TROUGH AT 2300 ONCE ONCE XX ; Start 09/12/17 at 23:00; Stop 09/12/17 at 23:01 BRISA NEAL Sep 12, 2017 17:00
[2017-09-12 20:31] VITALS: BP 119/71; RESP 19
[2017-09-13 02:00] VITALS: BP 116/65; RESP 19
[2017-09-13] MEDS: VANCOMYCIN 1.25 GM in SOD CHLORIDE 0.9% 250 ML IVPB SCH ×2 (05:35→12:19)
[2017-09-13] MEDS: ACETAMINOPHEN 1000MG/100ML IV 100 ML IVPB SCH ×3 (05:35→17:50)
[2017-09-13] MEDS: PANTOPRAZOLE (EC) 40 MG TAB PO SCH (05:36)
[2017-09-13] MEDS: CYANOCOBALAMIN 1000 MCG INJ IM SCH (08:11)
[2017-09-13] MEDS: DOCUSATE SODIUM 100 MG CAP PO SCH (08:11)
[2017-09-13] MEDS: FERROUS SULFATE (EC) 325 MG TAB PO SCH ×2 (08:11→13:06)
[2017-09-13] MEDS: CEFEPIME 1GM/50 ML (PMX) 50 ML IVPB SCH (08:14)
[2017-09-13 08:15] VITALS: BP 133/88; RESP 18
--- NOTE | 2017-09-13 13:09 | CONS ---
Date/Time of Note Date/Time of Note DATE: 09/13/17 TIME: 13:06 Consult Date/Type/Reason Admit Date/Time Aug 27, 2017 at 04:53 Initial Consult Date 08/27/17 Type of Consultation: ID Ordering Provider: HEIDI RASHEED [employer] Objective Vital Signs Date Time Temp Pulse Resp B/P Pulse Ox O2 Delivery O2 Flow Rate FiO2 09/13/17 08:15 98.0 86 18 133/88 100 09/10/17 20:18 Room Air Intake and Output 09/12/17 09/12/17 09/13/17 15:00 23:00 07:00 Intake Total 150 ml 920 ml 920 ml Output Total 1800 ml 940 ml Balance 150 ml -880 ml -20 ml Results/Medications Result Diagram: 09/10/17 04409/10/17440 Results 24 hrs Laboratory Tests Test 09/13/17 02:43 Vancomycin Level Trough 16.8 Medications Current Medications Ondansetron HCl (Zofran Inj) 4 mg Q6H PRN IV NAUSEA AND/OR VOMITING; Start 08/27/17 at 06:00 Acetaminophen (Tylenol Tab) 650 mg Q6H PRN PO PAIN LEVEL 1-3 OR FEVER Last administered on 08/27/17 21:04; Admin Dose 650 MG; Start 08/27/17 at 06:00; Status Future Hold Pantoprazole (Protonix Tab) 40 mg DAILY@06 PO Last administered on 09/13/17 05:36; Admin Dose 40 MG; Start 08/27/17 at 06:00 Heparin Sodium (Porcine) 5000 unit 5,000 unit Q8 SC Last administered on 05:26; Admin Dose 5,000 UNIT; Start 08/27/17 at 06:00; Status Future Hold Cefepime HCl (Maxipime 1gm/50 ml (Pmx)) 50 ml @ 100 mls/hr Q12 IVPB Last administered on 09/13/17 08:14; Admin Dose 100 MLS/HR; Start 08/30/17 at 11: 00 Cyanocobalamin (Vitamin B12 Inj) 1,000 mcg DAILY IM Last administered on 08:11; Admin Dose 1,000 MCG; Start 08/30/17 at 12:00 Morphine Sulfate (morphine) 2 mg Q4H PRN IV pain Last administered on 14:09; Admin Dose 2 MG; Start 09/01/17 at 09:30 Acetaminophen/ Hydrocodone Bitart ([place] (5/325)) 1 tab Q4H PRN PO PAIN LEVEL 1 -5; Start 09/02/17 at 22:00; Status Future Hold Acetaminophen/ Hydrocodone Bitart ([place] (5/325)) 2 tab Q4H PRN PO PAIN LEVEL 6 -10 Last administered on 09/04/17 10:05; Admin Dose 2 TAB; Start 09/02/17 at 22:00; Status Future Hold Zolpidem Tartrate (Ambien) 5 mg HS PRN PO INSOMNIA; Start 09/02/17 at 22:00 Al Hydrox/Mg Hydrox/Simethicone (Mag-Al Plus) 15 ml Q4H PRN PO CONSTIPATION; Start 09/02/17 at 22:00 Docusate Sodium (Colace) 100 mg BID PO Last administered on 09/13/17 08:11; Admin Dose 100 MG; Start 09/03/17 at 09:00 Ferrous Sulfate (Ferrous Sulfate (Ec)) 325 mg TID PO Last administered on 09/13 08:11; Admin Dose 325 MG; Start 09/03/17 at 09:00 Diazepam (Valium) 5 mg Q4H PRN PO MUSCLE SPASMS Last administered on 20:00; Admin Dose 5 MG; Start 09/02/17 at 22:00 Phenol (Cepastat Lozenge) 1 lozenge PRN PRN MT SORE THROAT; Start 09/02/17 at 22:00 Bethanechol Chloride (Urecholine) 25 mg PRN PRN PO UNABLE TO VOID Last administered on 09/03/17 08:57; Admin Dose 25 MG; Start 09/02/17 at 22:00 Diphenhydramine HCl (Benadryl) 50 mg Q6H PRN PO PRURITUS; Start 09/02/17 at 22 :00 Morphine Sulfate (morphine) 1 mg Q4PCA IV Last administered on 09/03/17 07:02 ; Admin Dose 30 MG; Start 09/02/17 at 22:00 Naloxone HCl 0.2 mg 0.2 mg Q2M PRN IV RR 8 BREATHS/MIN OR LESS; Start at 22:00 Acetaminophen 100 ml @ 400 mls/hr Q6H IVPB Last administered on 09/13/17t 11: 04; Admin Dose 400 MLS/HR; Start 09/04/17 at 10:30 Vancomycin HCl/ Sodium Chloride (Vancocin/NS) 250 ml @ 83.333 mls/ hr Q8H IVPB Last administered on 09/13/17t 05:35; Admin Dose 83.333 MLS/HR; Start at 03:30 Assessment/Plan Chief Complaint/Hosp Course SUBJECTIVE: No acute changes overnight, no fevers. The patient is alert, looks comfortable. No fevers ANTIMICROBIALS: 1. Vancomycin. 2. Cefepime. INDWELLINGS: PICC line. PHYSICAL EXAMINATION: GENERAL: Well-developed, middle-aged man who is alert, in no distress. HEENT: Head atraumatic, normocephalic. Sclerae anicteric. Buccal mucosa pink. NECK: Supple. CHEST: Rise symmetrical. Breath sounds diminished CTA. HEART: S1, S2. ABDOMEN: Soft. Bowel tones present. EXTREMITIES: Without cyanosis. ASSESSMENT: 1. Abnormal C-spine MRI with concern of septic versus inflammatory arthritis, patient remains on broad spectrum antibiotics. 2. Leukocytosis secondary to Decadron. 3. Thoracic stenosis and paraparesis status post T9-11 laminectomy, arthrodesis , bilateral pedical screw instrumentation on 09/02/2017. 4. Cerebral palsy. PLAN: The patient remains stable, pending placement, continue abx for total of 6 weeks. Follow neurosurgery recommendations. EMMANUELLE staff Problems: VIRIDIANA DESAI NP Sep 13, 2017 13:09
[2017-09-13 14:00] VITALS: BP 123/58; RESP 18
[2017-09-13] MEDS ORDERED: PANT40TA4 PO (15:21)
[2017-09-13] MEDS ORDERED: CEFE2FRO IV (15:21)
[2017-09-13] MEDS ORDERED: Vancomycin Iv Per Pharmacy XX (15:21)
[2017-09-13] MEDS ORDERED: FER325 PO (15:21)
[2017-09-13] MEDS ORDERED: HYDR-3498 PO (15:21)
[2017-09-13] MEDS ORDERED: VANC1PLA4 IV (15:21)
[2017-09-13] MEDS ORDERED: CYAN100092 IM (15:21)
--- NOTE | 2017-09-13 15:22 | PDOCDIS ---
Discharge Instructions DIAGNOSIS Discharge Diagnosis 1. 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 2. Abnormal bone marrow signal with surrounding soft tissue edema involving left C3-C4 facet joint with suspicion for septic arthritis. 3. History of cerebral palsy. HOME CARE INSTRUCTIONS: Special Diet: REGULAR OTHER ORDERS: Other Orders: 1. Follow up with Dr. Juan Lara in 2 weeks BRISA NEAL Sep 13, 2017 15:22
== END 2017-09-13 19:30 | DRG 460 ==
LOC: TEL 04:53 → PP2 08-28 15:30 → MS1 09-03 01:12
PROVIDERS: ADMIT Family Medicine; ATTEND Family Medicine
PROC: 8E0WXBG Computer Assisted Procedure of Trunk Region, With Computerized Tomography (ICD-10-PCS; 2017-09-02)
PROC: 0RG7071 Fusion of 2 to 7 Thoracic Vertebral Joints with Autologous Tissue Substitute, Posterior Approach, Posterior Column, Open Approach (ICD-10-PCS; principal; 2017-09-02 14:00)
PROC: 02HV33Z Insertion of Infusion Device into Superior Vena Cava, Percutaneous Approach (ICD-10-PCS; 2017-09-04)
DX: M48.04 Spinal stenosis, thoracic region (principal); G95.29 Other cord compression; G83.9 Paralytic syndrome, unspecified; M46.52 Other infective spondylopathies, cervical region; G80.9 Cerebral palsy, unspecified; R27.0 Ataxia, unspecified; R32 Unspecified urinary incontinence; M25.561 Pain in right knee; D72.829 Elevated white blood cell count, unspecified; T38.0X5A Adverse effect of glucocorticoids and synthetic analogues, initial encounter; Y92.238 Other place in hospital as the place of occurrence of the external cause
CPT/HCPCS: 36569; 70480; 70496; 70544; 70549; 70553; 71010; 72072; 72128; 72148; 72156; 72157; 73510; 73560; 76856; 76937; 80048; 80053; 80061; 80202; 81001; 82607; 83036; 83090; 83735; 83921; 84100; 84443; 85014; 85018; 85025; 85610; 85730; 86850; 86900; 86901; 87040; 87086; 93005; 93306; 97003; 97110; 97161; 97162; 97166; 97530; 97535; C1713; J0131; J0692; J1100; J1170; J1644; J1720; J2250; J2270; J2370; J2405; J2765; J3010; J3370; J3420; J7050; L0462; Q9967

== ENCOUNTER 2017-10-14 17:11 | Emergency (ER) | payer OTHER ==
[~2017-10-14] VITALS: Ht 167.6 cm; Wt 77.0 kg
[~2017-10-14 17:11] MED LIST: CEFE2FRO IV; CYAN100092 IM; FER325 PO; HYDR-3498 PO; PANT40TA4 PO; VANC1PLA4 IV; Vancomycin Iv Per Pharmacy XX
[2017-10-14 18:57] VITALS: Ht 167.6 cm; Wt 77.0 kg
[2017-10-14] MEDS ORDERED: HYDROCODONE/APAP (5/325) TAB PO ONE (19:00)
[2017-10-14] MEDS ORDERED: SODIUM CHLORIDE 0.9% 1L BAG IV* STA (19:01)
[2017-10-14] MEDS ORDERED: PIPER-TAZO 3.375 GM IV (PMX) 50 ML IVPB STA (19:01)
[2017-10-14] MEDS ORDERED: VANCOMYCIN 1 GM (PMX) 250 ML IVPB ONE (19:30)
[2017-10-14 19:44] LABS: BASOPHIL # 0.1 10^3/ul (0.0-0.1); BASOPHILS % 0.6 % (0.0-2.0); EOSINOPHILS % 0.1 % (0.0-7.0); HEMATOCRIT 40.5 % (42.0-52.0); HEMOGLOBIN 13.6 g/dl (14.0-18.0); LYMPHOCYTES # 1.8 10^3/ul (0.8-2.9); LYMPHOCYTES % 18.3 % (15.0-51.0); MEAN CORPUSCULAR HEMOGLOBIN 31.1 pg (29.0-33.0); MEAN CORPUSCULAR HGB CONC 33.6 g/dl (32.0-37.0); MEAN CORPUSCULAR VOLUME 92.7 fl (82.0-101.0); MEAN PLATELET VOLUME 10.9 fl (7.4-10.4); MONOCYTE # 1.3 10^3/ul (0.3-0.9); MONOCYTES % 12.5 % (0.0-11.0); NEUTROPHIL # 6.8 10^3/ul (1.6-7.5); NEUTROPHILS % 67.8 % (39.0-77.0); PLATELET COUNT 233 10^3/UL (140-415); RED BLOOD COUNT 4.37 10^6/ul (4.70-6.10); RED CELL DISTRIBUTION WIDTH 14.1 % (11.5-14.5)
[2017-10-14 20:06] LABS: INR 0.98
[2017-10-14 20:08] LABS: ALBUMIN 3.5 g/dl (3.3-4.9); ALBUMIN/GLOBULIN RATIO 1.2; BILIRUBIN,INDIRECT 0.1 mg/dl (0-1.1); BILIRUBIN,TOTAL 0.1 mg/dl (0.2-1.3); CALCIUM 8.9 mg/dl (8.4-10.2); CREATININE 0.61 mg/dl (0.61-1.24); POTASSIUM 3.9 mmol/L (3.5-5.1); TOTAL PROTEIN 6.4 g/dl (6.1-8.1)
[2017-10-14 20:19] LABS: TROPONIN-I 0.017 ng/ml (0.00-0.12)
--- NOTE | 2017-10-14 21:03 | RADRPT ---
PROCEDURE: CT Lumbar Spine without contrast. CLINICAL INDICATION: Left leg twitching since spinal fusion 6 weeks ago. TECHNIQUE: CT of the lumbar spine without contrast was performed. Axial images were obtained thro [facility] the lumbar spine and reformatted at 2.5 mm slice thickness. Coronal and sagittal images were ref ormatted. One or more of the following dose reduction techniques were used: Automated exposure cont rol, adjustment of the mA and/or kV according to patient size, use of iterative reconstruction techn ique. The CTDIvol = 13.12 mGy and DLP = 311 mGy-cm. COMPARISON: CT thoracic spine 09/04/2017. MRI lumbar spine 09/01/2017 FINDINGS: Vertebral bodies: There is preservation of lordosis, stature, mineralization and attenuation of the five [id number]-eknszop levels. A prominent S1 - S2 disc is present Conus medularis region: Normal in attenuation and termination estimated at the L1 level. L1-L2: No discogenic abnormality of significance is seen. Moderate right and mild left facet arthrop athy is present. The ligamentum flava are normal in thickness. The central canal is patent. There is no evidence for foraminal stenosis. L2-L3: A right paracentral protrusion is now identified estimated at 4 mm contributing to moderate r ight lateral recess stenosis. Moderate right and mild left facet arthropathy is present. The ligamen [place] flava are normal in thickness. There is no evidence of central stenosis. There is no evidence f or foraminal stenosis. L3-L4: Mild asymmetric disc bulging to the right is present estimated at 2 mm causing mild right lat eral recess stenosis. Moderate right greater than left facet arthropathy is present. Ligamentum flav um hypertrophy of 6 mm is seen. Mild central canal stenosis is present the AP dimension of the the robbin sac 8 mm. Trace right foraminal stenosis is noted. The left foramen is patent. L4-L5: Preservation of disc stature with asymmetric disc bulging to the right and a right foraminal as well as extraforaminal protrusion of approximately 4 mm causing moderate right lateral recess estefanía nosis. Moderate to severe bilateral facet arthropathy is present. Mild ligamentum flavum hypertrophy of 4 mm is present. Combination of findings cause mild central stenosis the AP dimension of the th ecal sac estimated at 8 mm. There is mild right foraminal stenosis the left foramen and left latera l recess are unremarkable. L5-S1: Preservation of disc stature with annular disc bulge of approximately 4 mm. Severe bilateral facet arthropathy is present. The ligamentum flava are normal in thickness. The central canal is pa tent. Disc material causes mild bilateral foraminal stenosis. Sacrum and sacroiliac joints: A rudimentary S1 - S2 disc is present. There is mild degenerative narr owing of the sacroiliac joints bilaterally. None spine related findings: No abnormalities are demonstrated. RPTAT:HJJR IMPRESSION: 1. Right paracentral protrusion at L2-3 causing moderate right lateral recess stenosis not evident o n the MRI lumbar spine of 09/01/2017 without associated central canal narrowing, right greater than left facet arthropathy at this level is present without foraminal stenosis. 2. Mild acquired central stenosis at L3-4 caused by asymmetric disc bulging to the right that contr ibutes to right lateral recess and trace right foraminal narrowing. Central stenosis caused in part by right greater than left facet arthropathy at this level. 3. Asymmetric disc bulging to the right at L4-5 with right foraminal and extraforaminal protrusion, facet arthropathy and ligamentum flavum hypertrophy contributing to mild central stenosis as well a s mild right foraminal narrowing. 4. Annular disc bulging and facet arthropathy at L5-S1 with bilateral foraminal stenosis but no sig nificant central canal compromise. Physician Anai Date Time Electronically viewed and signed by Physician Anai on 10/14/2017 21:03 JR/
--- NOTE | 2017-10-14 21:37 | RADRPT ---
PROCEDURE: CT thoracic spine without contrast. CLINICAL INDICATION: Left leg twitching, recent surgery. Postop from thoracic spine stabilization. TECHNIQUE: The study was performed utilizing a multislice multidetector CT scanner. Direct spiral 1 mm axial sections were obtained through the thoracic spine without contrast. 1 or more of the fol lowing dose reduction techniques were utilized: Automated exposure control, adjustment of the mA an d/or kV according to patient's size, iterative reconstruction technique. Coronal and sagittal refor mations were obtained. The images were reviewed on a PACS workstation. DICOM images are available. RADIATION DOSE: CTDIvol: 12.8 mGyDLP: 562.3 mGy-cm COMPARISON: 09/04/2017, 08/30/2017 FINDINGS: There is a moderate amount of motion artifact from T3-T6, limiting evaluation at these levels. There is redemonstration of postoperative changes from posterior lumbar stabilization at T9 - T11 with pa ired pedicle screws in the T9, T10 and T11 vertebral bodies and associated paraspinal fusion rods. T he hardware is intact. There is mild interval and the posterior graft material within the thecal sac . There is a mild left convex scoliosis centered at T12-L1. The alignment of the mid thoracic spine from T3-T6 is not well evaluated. The alignment of the thoracic spine is within normal limits on the sagittal views without significant listhesis. The vertebral body heights and marrow density are no rmal in appearance. There is no evidence of fracture The intervertebral disc spaces are preserved. The paraspinal soft tissues unremarkable. There is no significant narrowing of the thoracic thecal sac or neural foramina. The following levels are positive on axial images: T9-10: There are postoperative change from laminectomy. The thecal sac and lateral recesses are pat ent. There is moderate bilateral neural foraminal narrowing. T10-11: There are postoperative changes from laminectomy at this level. There is a mild amount of s treak artifact, slightly limiting evaluation. The thecal sac appears patent. There is moderate bilat eral neural foraminal narrowing. IMPRESSION: 1. No significant interval change compared to 09/04/2017. No acute abnormality of the thoracic spin e. No evidence of fracture. 2. Redemonstration of postoperative changes from posterior lumbar stabilization at T9-10 and T10-11 with intact surgical hardware. No evidence of hardware failure. 3. Severe motion artifact from T3-T6, limiting evaluation at these levels. RPTAT: HGAS .Emanuel Almanza MD, MD Date Time Electronically viewed and signed by .Emanuel Almanza MD, on 10/14/2017 21:37 .S/
[2017-10-14] MEDS ORDERED: HYDR-905 PO (21:46)
[2017-10-14] MEDS ORDERED: NAPR-688 PO (21:46)
--- NOTE | 2017-10-14 21:59 | ERD ---
ER Documentation Chief Complaint Chief Complaint left lower leg pain/twitching, fever earlier w/ HR 130 at home HPI 37-year-old male is brought in by his mother for having a high heart rate at home according to the [facility] health nurse. Heart rate at that time was up to 130 and she recommended that he come to the emergency room. Is also noted that he complains of left leg pain. In August he had surgery on his spine for his leg pain. She states that he takes [place] but they are almost out. Says that he also felt feverish and that she did not take the temperature but thought he felt warm. Paramedics also thought he felt warm. ROS All systems reviewed and are negative except as per history of present illness the patient is an unreliable secondary to cognitive impairment.. Medications Home Meds Active Scripts Naproxen* (Naproxen*) 500 Mg Tablet, 500 MG PO BID Y for PAIN, #20 TAB Prov:YUE MCDONALD DO 10/14/17 Hydrocodone/Acetaminophen (Bailey[place] 7.5-325 Tablet) 1 Each Tablet, 1 EACH PO Q6, # 20 TAB Prov:YUE MCDONALD DO 10/14/17 [Vancomycin Iv Per Pharmacy] 1 EA EACH No Conflict Check, 0 EA XX .PER PROTOCOL for 28 Days Prov:BRISA NEAL 09/13/17 Pantoprazole* (Pantoprazole*) 40 Mg Tablet.dr, 40 MG PO DAILY@06, #30 Prov:BRISA NEAL 09/13/17 Hydrocodone Bit-Acetaminophen (Hydrocodone Bit-APAP) 5-325MG Tablet, 2 TAB PO Q4H Y for PAIN LEVEL 6-10, #30 TAB Prov:BRISA NEAL 09/13/17 Ferrous Sulfate* (Ferrous Sulfate*) 325 Mg Tabec, 325 MG PO TID, #30 TAB Prov:BRISA NEAL 09/13/17 Cefepime Hcl/Dextrose, Iso-Osm (Cefepime 2 Gm Injection) 2 Gm/100 Ml Froz.piggy , 2 GM IV DAILY, #28 Prov:BRISA NEAL 09/13/17 Vancomycin/0.9 % Sod Chloride (Vancomycin-0.9% NaCl 1 G/250) 1 Gm/250 Ml Plast..bag, 1 GM IV DAILY, #28 Prov:BRISA NEAL 09/13/17 Cyanocobalamin (Vitamin B-12) (Cyanocobalamin Injection) 1,000 Mcg/1 Ml Vial, 1000 MCG IM DAILY for 30 Days, VIAL Prov:BRISA NEAL 09/13/17 Allergies Allergies: Coded Allergies: No Known Allergy (Unverified , 08/27/17) PMhx/Soc Medical and Surgical Hx: pt denies Surgical Hx History of Surgery: No Anesthesia Reaction: No Hx Neurological Disorder: Yes Hx Respiratory Disorders: No Hx Cardiac Disorders: Yes (HTN) Hx Psychiatric Problems: No Hx Miscellaneous Medical Probl: Yes (Mental Retardation) Hx Alcohol Use: No Hx Substance Use: No Hx Tobacco Use: No Smoking Status: Never smoker Physical Exam Vitals Vital Signs Date Time Temp Pulse Resp B/P Pulse Ox O2 Delivery O2 Flow Rate FiO2 10/14/17 18:57 98.5 107 20 137/85 97 Physical Exam Const: [] No distress, Head: Atraumatic Eyes: Normal Conjunctiva ENT: Normal External Ears, Nose and Mouth. Neck: Full range of motion..~ No meningismus. Resp: Clear to auscultation bilaterally Cardio: Regular tachycardia, no murmurs Abd: Soft, non tender, non distended. Normal bowel sounds Skin: No petechiae or rashes Back: No midline or flank tenderness Ext: No cyanosis, or edema Neur: Awake and alert and oriented 2, cognitively impaired, no focal neurological deficits, 4-5 leg strength of the left lower extremity proximally, distal pulses intact all 4 extremities, no deformities Psych: Normal Mood and Affect Result Diagram: 10/14/17192410/14/171924 Results 24 hrs Laboratory Tests Test 10/14/17 19:25 White Blood Count 10.010^3/ul Red Blood Count 4.3710^6/ul Hemoglobin 13.6g/dl Hematocrit 40.5% Mean Corpuscular Volume 92.7fl Mean Corpuscular Hemoglobin 31.1pg Mean Corpuscular Hemoglobin Concent 33.6g/dl Red Cell Distribution Width 14.1% Platelet Count 28848^3/UL Mean Platelet Volume 10.9fl Neutrophils % 67.8% Lymphocytes % 18.3% Monocytes % 12.5% Eosinophils % 0.1% Basophils % 0.6% Nucleated Red Blood Cells % 0.0/100WBC Neutrophils # 6.810^3/ul Lymphocytes # 1.810^3/ul Monocytes # 1.310^3/ul Eosinophils # 0.010^3/ul Basophils # 0.110^3/ul Nucleated Red Blood Cells # 0.010^3/ul Prothrombin Time 13.0Sec Prothrombin Time Ratio 1.0 INR International Normalized Ratio 0.98 Activated Partial Thromboplast Time 33.0Sec Sodium Level 139mmol/L Potassium Level 3.9mmol/L Chloride Level 104mmol/L Carbon Dioxide Level 25mmol/L Anion Gap 14 Blood Urea Nitrogen 16mg/dl Creatinine 0.61mg/dl Glucose Level 96mg/dl Lactic Acid Level 1.3mmol/L Calcium Level 8.9mg/dl Total Bilirubin 0.1mg/dl Direct Bilirubin 0.00mg/dl Indirect Bilirubin 0.1mg/dl Aspartate Amino Transf (AST/SGOT) 20IU/L Alanine Aminotransferase (ALT/SGPT) 55IU/L Alkaline Phosphatase 88IU/L Troponin I 0.017ng/ml Total Protein 6.4g/dl Albumin 3.5g/dl Globulin 2.90g/dl Albumin/Globulin Ratio 1.20 Current Medications Medications (Trade) Dose Ordered Sig/Oly Route PRN Reason Start Time Stop Time Status Last Admin Dose Admin Acetaminophen/ Hydrocodone Bitart (Bailey[place] (5/325)) 1 tab ONCE ONCE PO 10/14/17 19:00 10/14/17 19:01 DC 10/14/17 18:57 Sodium Chloride 2390 ml 2,390 ml BOLUS OVER 2 HOURS STAT IV* 10/14/17 19:01 10/14/17 19:04 DC 10/14/17 19:54 Vancomycin HCl 250 ml @ 125 mls/hr ONCE ONCE IVPB 10/14/17 19:30 10/14/17 21:29 DC 10/14/17 21:00 Piperacillin Sod/ Tazobactam Sod (Zosyn 3.375gm/ 50 ml (Pmx)) 50 ml @ 100 mls/hr ONCE STAT IVPB 10/14/17 19:01 10/14/17 19:30 DC 10/14/17 19:54 Procedures/MDM Cognitively impaired male with leg pain retracted tachycardia with no other current issues. Septic workup was performed initially because of recent surgery combined with tachycardia and reports of fever today. Patient was given a [place] for his pain as well as fluids and his heart rate reduced his pain improved greatly. No signs of systemic infection or sepsis. His CT status post surgery showed no concerning changes and no abscesses. Is also no significant visualized impingement of nerve roots or any obvious change. This point I do not believe the patient needs to be admitted as his issues are resolved. I am going to discharge her with Bailey[place] 7.5. Well as naproxen for inflammation. I also called and spoke with the patient's surgeon, Dr. machado about the case. He states that there is some residual leg weakness the patient had improved greatly and that he was able to stand previously. My exam seems consistent or actually improved from the way he describes it. EKG interpretation: Normal sinus rhythm rate of 99, normal axis, no ST or T- wave changes concerning for acute ischemia, normal intervals. Normal EKG except for possible left atrial enlargement shelter monitor interpretation: Initial tachycardia followed by normal sinus without arrhythmia. CT thoracic and lumbar spine interpretation: No acute fracture dislocation, abscess, significant inflammatory changes or significant abnormalities postoperative. Departure Diagnosis: Primary Impression: Tachycardia Additional Impression: Pain in left leg Condition: Stable Patient Instructions: Possible Causes of Low Back or Leg Pain, Sinus Tachycardia Referrals: HARJIT MACHADO MD Additional Instructions: Call your primary care doctor TOMORROW for an appointment during the next 2-3 days.See the doctor sooner or return here if your condition worsens before your appointment time. YUE MCDONALD DO Oct 14, 2017 21:59
[2017-10-14] MEDS ORDERED: ALBUTEROL 0.083% (NEB) 2.5 MG/3 ML AMP HHN STA (22:16)
[2017-10-14] MEDS ORDERED: IPRATROPIUM (NEB) 0.5 MG/2.5 ML AMP HHN ONE (22:30)
[2017-10-14 23:00] VITALS: BP 139/89; PULSE 93; RESP 16; TEMP 98.4
== END 2017-10-14 23:05 | disposition home or self-care (01) ==
LOC: E/R 17:11 → FTE 23:05
DX: R00.0 Tachycardia, unspecified (principal); R40.2252 Coma scale, best verbal response, oriented, at arrival to emergency department; I10 Essential (primary) hypertension; R40.2142 Coma scale, eyes open, spontaneous, at arrival to emergency department; R40.2362 Coma scale, best motor response, obeys commands, at arrival to emergency department
CPT/HCPCS: 36415; 72128; 72131; 80053; 83605; 84484; 85025; 85610; 85730; 87040; 87086; 96374; 96375; J2543; J3370; J7030; Z7502; Z7610; 93005

== ENCOUNTER 2017-11-05 00:10 | Emergency (ER) | payer SELFPAY ==
[~2017-11-05] VITALS: Ht 172.7 cm; Wt 71.0 kg
[~2017-11-05 00:10] MED LIST changes: +HYDR-905 PO; +NAPR-688 PO
[2017-11-05 00:58] VITALS: Ht 172.7 cm; Wt 71.0 kg
== END 2017-11-05 05:02 | disposition left against medical advice (07) ==
LOC: E/R 00:10
DX: Z53.21 Procedure and treatment not carried out due to patient leaving prior to being seen by health care provider (principal)